=== PATIENT | male | born 1990 | race Hispanic/Latino ===

== ENCOUNTER 2020-10-02 00:34 | Emergency (ER) | payer SELFPAY ==
[2020-10-02] MEDS ORDERED: LORazepam 2 MG/ML VIAL ONE ×2 (00:50→08:04)
[2020-10-02 00:55] LABS: Basophils % 0.9 % (0-1.3); Hematocrit 45.4 % (39.6-49.0); Lymphocytes % 25.6 % (15.3-44.8); RBC Red Blood Cell Count 5.11 M/uL (4.33-5.43)
[2020-10-02] MEDS ORDERED: NA CHLORIDE 0.9% 1,000 ML ONE (00:56)
[2020-10-02] MEDS ORDERED: DIPHENHYDRAMINE 50 MG/ML VIAL ONE (00:59)
[2020-10-02 01:01] LABS: Protime INR 1.1
[2020-10-02 01:24] LABS: ALT/SGPT 17 U/L (12-78); AST/SGOT 19 U/L (15-37); Albumin 4.9 g/dL (3.4-5.0); Alkaline Phosphatase 82 U/L (45-117); BUN Blood Urea Nitrogen 23 mg/dL (7-18); Bicarbonate 17 mmol/L (21-32); Bilirubin Direct 0.2 mg/dL (0-0.2); Glucose Level 101 mg/dL (74-106); Potassium 3.7 mmol/L (3.5-5.1); Protein, Total 8.9 g/dL (6.4-8.2); Sodium Level 139 mmol/L (136-145)
[2020-10-02 04:30] LABS: Barbiturates NEGATIVE (NEGATIVE); Benzodiazepines NEGATIVE (NEGATIVE); Cocaine NEGATIVE (NEGATIVE); METHAMPHETAM POSITIVE (NEGATIVE); Methadone NEGATIVE (NEGATIVE); Opiates NEGATIVE (NEGATIVE); Phencyclidine NEGATIVE (NEGATIVE); THC Cannibis POSITIVE (NEGATIVE)
[2020-10-02 04:31] LABS: Urine Blood NEGATIVE (NEG); Urine Glucose NEGATIVE (NEG); Urine Protein 1+ (NEG); Urine Specific Gravity >1.030 (1.005-1.030)
--- NOTE | 2020-10-02 11:41 | EDPHYS ---
Physician Documentation [facility] Name: Arun Schuler Age: 29 yrs Sex: Male : 1990 Arrival Date: 10/02/2020 Time: 00:35 Bed 16 Private MD: ED Physician Cody Medina HPI: 10/02 00:54 This 29 yrs old Male presents to ER via EMS with complaints of Agressive mh7 Behavior. 00:54 The patient presents to the emergency department with Aggressive Behavior. Onset: The mh7 symptoms/episode began/occurred today. 01:06 Past psychiatric history: Prior diagnosis: bipolar disorder, schizophrenia, Psychiatric mh7 medications include: none, Primary psychiatric physician: the patient's psychiatric physician is not known, it is unknown whether or not the patient has had a prior suicide gesture, it is unknown whether or not the patient has a previous inpatient psychiatric history, the patient's last psychiatric treatment was unknown. Associated signs and symptoms: Pertinent positives; hallucinations. Severity of symptoms: At their worst the symptoms were moderate today, in the emergency department the symptoms are unchanged. Patient yelling and screaming at scene. Patient was recently released from halfway without medication for hi schizophrenia, bipolar disorder. patient talking to himself in ED while on stretcher.. Historical: - Allergies: 00:45 No Known Allergies; fc - Home Meds: 00:45 None [Active]; fc - PMHx: 00:45 Bipolar disorder; Schizophrenia; Depression; fc - Immunization history:: Last tetanus immunization: up to date. - Social history:: Smoking status: unknown. ROS: 01:06 Constitutional: Negative for fever, chills, and weight loss, Eyes: Negative for injury, mh7 pain, redness, and discharge, ENT: Negative for injury, pain, and discharge, Neck: Negative for injury, pain, and swelling, Cardiovascular: Negative for chest pain, palpitations, and edema, Respiratory: Negative for shortness of breath, cough, wheezing, and pleuritic chest pain, Abdomen/GI: Negative for abdominal pain, nausea, vomiting, diarrhea, and constipation, Back: Negative for injury and pain, : Negative for injury, bleeding, discharge, and swelling, MS/Extremity: Negative for injury and deformity, Skin: Negative for injury, rash, and discoloration, Neuro: Negative for headache, weakness, numbness, tingling, and seizure, Allergy/Immunology: Negative for hives, rash, and allergies, Endocrine: Negative for neck swelling, polydipsia, polyuria, polyphagia, and marked weight changes, Hematologic/Lymphatic: Negative for swollen nodes, abnormal bleeding, and unusual bruising. Exam: 01:06 Head/Face: Normocephalic, atraumatic. Neck: Trachea midline, no thyromegaly or masses mh7 palpated, and no cervical lymphadenopathy. Supple, full range of motion without nuchal rigidity, or vertebral point tenderness. No Meningismus. Chest/axilla: Normal chest wall appearance and motion. Nontender with no deformity. No lesions are appreciated. 01:06 Respiratory: Lungs have equal breath sounds bilaterally, clear to auscultation and percussion. No rales, rhonchi or wheezes noted. No increased work of breathing, no retractions or nasal flaring. Abdomen/GI: Soft, non-tender, with normal bowel sounds. No distension or tympany. No guarding or rebound. No evidence of tenderness throughout. Back: No spinal tenderness. No costovertebral tenderness. Full range of motion. Skin: Warm, dry with normal turgor. Normal color with no rashes, no lesions, and no evidence of cellulitis. MS/ Extremity: Pulses equal, no cyanosis. Neurovascular intact. Full, normal range of motion. 01:06 Constitutional: The patient appears in no acute distress, alert, awake, agitated, anxious. 01:06 Cardiovascular: Rate: tachycardic, Rhythm: regular, Pulses: no pulse deficits are appreciated, Heart sounds: normal, normal S1and S2, Edema: is not appreciated, JVD: is not appreciated. 02:22 Neuro: Awake and alert, GCS 15, oriented to person, place, time, and situation. mh7 Cranial nerves II-XII grossly intact. Motor strength 5/5 in all extremities. Sensory grossly intact. Cerebellar exam normal. Normal gait. 02:22 Psych: Behavior/mood is anxious, angry, Affect is animated, Oriented to person, place, time, Patient has no thoughts/intents to harm self or others. Judgement / Insight is normal. Memory is normal. Delusions/hallucinations are present and described as Talking to himself. Vital Signs: 00:27 BP 109 / 89; Pulse 144; Resp 24; Temp 98.6(TE); Pulse Ox 99% on R/A; Weight 83.91 kg fc (R); Height 5 ft. 11 in. (180.34 cm) (R); Pain 2/10; 02:00 BP 110 / 75; Pulse 93; Resp 16; Pulse Ox 99% ; rr5 05:00 BP 115 / 80; Pulse 90; Resp 17; Pulse Ox 99% ; rr5 06:00 BP 113 / 70; Pulse 85; Resp 16; Pulse Ox 99% ; rr5 11:00 BP 111 / 75; Pulse 83; Resp 15; Pulse Ox 100% ; jl7 00:27 Body Mass Index 25.80 (83.91 kg, 180.34 cm) fc MDM: 07:01 Differential diagnosis: acute psychotic break, depression, psychosis secondary to mh7 non-compliance. 11:38 Data reviewed: vital signs, nurses notes. Counseling: I had a detailed discussion with [facility] the patient and/or guardian regarding: the historical points, exam findings, and any diagnostic results supporting the discharge/admit diagnosis, the presence of at least one elevated blood pressure reading (>120/80) during this emergency department visit, the need for outpatient follow up. Response to treatment: the patient's symptoms have markedly improved after treatment. 11:[address] [facility] 10/02 00:43 Order name: Acetaminophen; Complete Time: 10/02 00:43 Order name: Basic Metabolic Panel; Complete Time: 10/02 00:43 Order name: CBC with Diff; Complete Time: 10/02 00:43 Order name: ETOH Level; Complete Time: 10/02 00:43 Order name: Hepatic Function; Complete Time: 10/02 00:43 Order name: PT-INR; Complete Time: 10/02 00:43 Order name: Ptt, Activated; Complete Time: 10/02 00:43 Order name: Salicylate; Complete Time: 10/02 00:43 Order name: Urine Drug Screen; Complete Time: 04:33 [facility] 10/02 01:26 Order name: CPK; Complete Time: 02:36 7 10/02 04:06 Order name: Urine Dipstick--Ancillary (enter results); Complete Time: 04:33 [facility] 10/02 09:28 Order name: SARS-COV-2 RT PCR; Complete Time: 11:22 [facility] 10/02 00:43 Order name: EKG; Complete Time: 00:44 5 10/02 00:43 Order name: EKG - Nurse/Tech; Complete Time: 00:51 rr5 10/02 00:43 Order name: IV Saline Lock; Complete Time: 00:51 rr5 10/02 00:43 Order name: Labs collected and sent; Complete Time: 00:51 rr5 10/02 00:43 Order name: Urine Dipstick-Ancillary (obtain specimen); Complete Time: 04:11 [facility] 10/02 08:32 Order name: Diet Finger Food; Complete Time: 08:33 [facility] Administered Medications: 00:35 Drug: NS 0.9% 1000 ml Route: IV; Rate: 1 bolus; Site: left forearm; rr5 01:20 Follow up: Response: No adverse reaction; IV Status: Completed infusion; IV Intake: rr5 1000ml 00:35 Drug: Ativan 1 mg Route: IVP; Site: left forearm; rr5 01:05 Follow up: Response: No adverse reaction; No change in condition rr5 01:05 Drug: Ativan 1 mg Route: IVP; Site: left forearm; rr5 02:05 Follow up: Response: No adverse reaction rr5 01:08 Drug: Benadryl 50 mg Route: IVP; Site: left forearm; rr5 02:10 Follow up: Response: No adverse reaction rr5 08:02 Drug: Ativan 1 mg Route: IVP; Site: left forearm; jl7 09:00 Follow up: Response: No adverse reaction jl7 12:13 Drug: Ativan 1 mg Route: IVP; Site: left forearm; jl7 13:00 Follow up: Response: No adverse reaction jl7 Disposition: 10/02/20 11:40 Transfer ordered to [facility]. Diagnosis is Homicidal ideations. - Reason for transfer: Higher level of care. - Accepting physician is Dr. Viveros [facility]. - Condition is Stable. - Problem is new. - Symptoms are unchanged. Signatures: Dispatcher [employer] [facility] Natasha Biswas RN RN fc Sheyla Schaeffer RN RN jl7 Daina Arcos MD MD ma2 Claudia Bullard Raymond, RN RN rr5 Cody Medina MD MD mh7 Corrections: (The following items were deleted from the chart) 08:28 08:12 CORONAVIRUS+Z ordered. EDUT EDMS 11:57 11:40 10/02/2020 11:40 Transfer ordered to Psych Facility. Diagnosis is Homicidal eb ideations. Reason for transfer: Higher level of care. Accepting physician is Bing. Condition is Stable. Problem is new. Symptoms are unchanged. ma2 13:24 11:57 10/02/2020 11:40 Transfer ordered to Psych Facility. Diagnosis is Homicidal jl7 ideations. Reason for transfer: Higher level of care. Accepting physician is Dr. Viveros [facility]. Condition is Stable. Problem is new. Symptoms are unchanged. eb
--- NOTE | 2020-10-02 11:41 | ER ---
Nurse's Notes [facility] Name: Arun Schuler Age: 29 yrs Sex: Male : 1990 Arrival Date: 10/02/2020 Time: 00:35 Bed 16 Private MD: Diagnosis: Homicidal ideations Presentation: 10/02 00:27 Chief complaint: EMS states: that they were toned for shortness of breath but upon fc their arrival pt was yelling and screaming. He did denies being suicidal and homicidal. Pt has just recently (5 days ago) gotten out of longterm where he was being medicated for Schizo and Bipolar, they sent him out with no medications. Coronavirus screen: Client denies travel out of the [place] in the last 14 days. Ebola Screen: Patient negative for fever greater than or equal to 101.5 degrees Fahrenheit, and additional compatible Ebola Virus Disease symptoms Patient denies exposure to infectious person. Patient denies travel to an Ebola-affected area in the 21 days before illness onset. Initial Sepsis Screen: Does the patient meet any 2 criteria? RR > 20 per min. HR > 90 bpm. Yes Does the patient have a suspected source of infection? No. Patient's initial sepsis screen is negative. Risk Assessment: Do you want to hurt yourself or someone else? Patient reports no desire to harm self or others. Onset of symptoms was October 02, 2020. Transition of care: patient was not received from another setting of care. 00:27 Method Of Arrival: EMS: [facility] 00:27 Acuity: ANGELICA 3 Historical: - Allergies: 00:45 No Known Allergies; fc - Home Meds: 00:45 None [Active]; fc - PMHx: 00:45 Bipolar disorder; Schizophrenia; Depression; fc - Immunization history:: Last tetanus immunization: up to date. - Social history:: Smoking status: unknown. Screenin:27 Abuse screen: Denies threats or abuse. Nutritional screening: No deficits noted. Tuberculosis screening: No symptoms or risk factors identified. Fall Risk None identified. Assessment: 01:00 General: Appears in no apparent distress. Behavior is agitated, anxious. rr5 01:00 Pain: Unable to use pain scale. Patient appears agitated. Neuro: Level of Consciousness rr5 is awake. Cardiovascular: Capillary refill < 3 seconds Patient's skin is warm and dry. Respiratory: Airway is patent Respiratory effort is even, unlabored, Respiratory pattern is regular, symmetrical. GI: No signs and/or symptoms were reported involving the gastrointestinal system. : No signs and/or symptoms were reported regarding the genitourinary system. EENT: No signs and/or symptoms were reported regarding the EENT system. Derm: Skin is intact, Skin temperature is warm. Musculoskeletal: Capillary refill < 3 seconds. 01:00 Reassessment: patient repeatedly shouts "i saw the girl..... I saw the horse bro....." rr5 ED provider aware with order made and carried out. 02:15 Reassessment: Patient appears in no apparent distress at this time. Patient is alert, rr5 oriented x 3, equal unlabored respirations, skin warm/dry/pink. able to answer question not aggressive, calm, cooperative. 03:19 Reassessment: valuables surrendered to security department. rr5 04:00 Reassessment: Patient appears in no apparent distress at this time. resting eyes closed rr5 breathing spontaneously at room air. 05:13 Reassessment: Patient appears in no apparent distress at this time. for [facility] rr5 referral once fully awake. 06:23 Reassessment: Patient appears in no apparent distress at this time. Patient is alert, rr5 oriented x 3, equal unlabored respirations, skin warm/dry/pink. able to respond to verbal stimuli. for [facility] referral. 06:49 Reassessment: Patient appears in no apparent distress at this time. Patient is alert, rr5 oriented x 3, equal unlabored respirations, skin warm/dry/pink. asked the patient for his phone number [phone] and asked if any thoughts as of this moment if he wants to hurt himself or other people? he stated " sometimes I marianne want to hurt myself not other people. ED provider aware. 07:00 Reassessment: Patient appears in no apparent distress at this time. Patient is alert, rr5 oriented x 3, equal unlabored respirations, skin warm/dry/pink. adrienne mancera is on Ipad assessing the patient. 07:50 Reassessment: Pt off the Ipad with Adrienne Mancera, reports "I'm starting to feel real jl7 anxious." ERP notified, see [facility] for orders. 09:00 Reassessment: Patient appears in no apparent distress at this time. No changes from jl7 previously documented assessment. Patient and/or family updated on plan of care and expected duration. Pain level reassessed. Patient is alert, oriented x 3, equal unlabored respirations, skin warm/dry/pink. Patient states feeling better. 10:00 Reassessment: Patient appears in no apparent distress at this time. No changes from jl7 previously documented assessment. Patient and/or family updated on plan of care and expected duration. Pain level reassessed. Patient is alert, oriented x 3, equal unlabored respirations, skin warm/dry/pink. 11:00 Reassessment: Patient appears in no apparent distress at this time. No changes from jl7 previously documented assessment. Patient and/or family updated on plan of care and expected duration. Pain level reassessed. Patient is alert, oriented x 3, equal unlabored respirations, skin warm/dry/pink. 12:10 Reassessment: Patient appears in no apparent distress at this time. Patient and/or jl7 family updated on plan of care and expected duration. Pain level reassessed. Patient is alert, oriented x 3, equal unlabored respirations, skin warm/dry/pink. Pt reports increased anxiety, ERD notified, see [facility] for orders. 13:00 Reassessment: Patient appears in no apparent distress at this time. Patient and/or jl7 family updated on plan of care and expected duration. Pain level reassessed. Patient is alert, oriented x 3, equal unlabored respirations, skin warm/dry/pink. Patient states feeling better. 13:22 Reassessment: [facility] at bedside to transport pt to receiving facility. jl7 21:42 Reassessment: pt mother called, reports her son was transferred to [facility] requesting information on his status. pt informed of contact information for [facility] as this patient had left this facility already. Psych: 07:50 Subjective: Patient's mood is hopeless, Delusions are denied, Hallucinations are jl7 auditory, Having thoughts of states "When my anxiety gets real bad, I start thinking of wanting to hurt other people that have made me mad." Denies SI, denies HI at this time. Objective: Patient is cooperative, Speech is normal, Affect is flat. Interventions: interventions completed on core setter. Suicide Risk Assessment: Sad Person Scale: Sex of patient: Male: Score 1 point. Age of patient: Score 1 point if patient 15-34. Depression: Score 1 point if signs of depression are present. Previous Attempt: Score 0 point if patient has not previously attempted suicide. Substance Abuse: Score 1 point if patient abuses alcohol or drugs. Rational Thinking: Score 0 point if patient has rational thinking. Social Support: Score 1 point if social support is lacking and/or unavailable. Organized Plan: Score 0 if patient did not have an organized plan in place. Relationship: Score 1 point if patient is , , , or for a single male Chronic Sickness:. Safety Checks: Personal items have been removed. Door is open. No visitors are present at this time. Patient uses of beer. 13:24 Commitment: Patient will be a voluntary commitment. 7 Vital Signs: 00:27 BP 109 / 89; Pulse 144; Resp 24; Temp 98.6(TE); Pulse Ox 99% on R/A; Weight 83.91 kg fc (R); Height 5 ft. 11 in. (180.34 cm) (R); Pain 2/10; 02:00 BP 110 / 75; Pulse 93; Resp 16; Pulse Ox 99% ; rr5 05:00 BP 115 / 80; Pulse 90; Resp 17; Pulse Ox 99% ; rr5 06:00 BP 113 / 70; Pulse 85; Resp 16; Pulse Ox 99% ; rr5 11:00 BP 111 / 75; Pulse 83; Resp 15; Pulse Ox 100% ; jl7 00:27 Body Mass Index 25.80 (83.91 kg, 180.34 cm) ED Course: 00:30 Inserted saline lock: 20 gauge in left forearm, using aseptic technique. Blood rr5 collected. 00:35 Patient arrived in ED. fc 00:38 Cody Medina MD is Attending Physician. 7 00:39 Dheeraj Acosta RN is Primary Nurse. rr5 00:40 EKG done, by ED staff, reviewed by Cody Medina MD. rr5 00:40 Patient has correct armband on for positive identification. Bed in low position. Call rr5 light in reach. Side rails up X2. sitter at bedside. 00:44 Triage completed. fc 01:00 No provider procedures requiring assistance completed. rr5 01:05 Arm band placed on Patient sitter at bedside. rr5 04:00 Urine collected: clean catch specimen, clear. rr5 06:33 called the [facility] crisis line at [phone]/ per Laurence she will page out the eb screener. 06:50 Dominick from [facility] called / faxed over patient clinicals and connected patient eb Dominick over Ipad for screening. 08:06 attempted to initiate a transfer with Tukimberlyclyde from [facility]/ Per susanna Norman a COVID swab must be done and resulted before i can initiate the transfer/ nurse notified. 08:14 COVID swab sent to lab. jl7 08:17 faxed patient clinical's to the following facilities in the attempt to transfer/ [facility], [facility], [facility], [facility], [facility], [facility], [facility], [facility], [facility], [facility], [facility], [facility], [facility]. and [facility] 08:52 Brijesh from [facility] called to decline patient at this time they are at capacity. eb 09:15 Diet: Patient given a regular meal tray. [facility] 09:24 Ute Rn from [facility] called to deny patient in transfer/ their high eb acuity unit is at capacity and they do not have a bed for him at this time. 09:36 initiated a transfer with Ester from [facility]/ faxed over eb exclusionary along with patient chart to [phone]. 10:23 Destini from [facility] called to deny the patient in transfer they are at eb capacity. 11:10 faxed over COVID results to Nicki from [facility]/ She will call back eb to do nurse to nurse once she has received it. 11:15 connected Nicki Rn from [facility] with Sheyla Do for nurse to nurse for eb patient transfer. 11:18 paged the specialty finishing utility person psychiatrist for [facility] at [phone]. eb 11:21 connected the psychiatrist specialty finishing utility person for [facility] with Dr. Arcos for patient transfer eb consultation. 11:31 Ester clements [facility] called to decline the patient in transfer/ the patient did not eb meet the guidelines for transfer. 11:[address] Viveros the psychiatrist specialty finishing utility person for [facility] with Dr. Arcos for eb patient transfer consultation. 11:47 administrative approval given by Al Loera/ patient has been accepted to [facility]/ has accepted the patient in transfer/ report already given. 12:10 Diet: Patient given a regular meal tray. dh3 13:23 IV discontinued, intact, bleeding controlled, No redness/swelling at site. Pressure jl7 dressing applied. Administered Medications: 00:35 Drug: NS 0.9% 1000 ml Route: IV; Rate: 1 bolus; Site: left forearm; rr5 01:20 Follow up: Response: No adverse reaction; IV Status: Completed infusion; IV Intake: rr5 1000ml 00:35 Drug: Ativan 1 mg Route: IVP; Site: left forearm; rr5 01:05 Follow up: Response: No adverse reaction; No change in condition rr5 01:05 Drug: Ativan 1 mg Route: IVP; Site: left forearm; rr5 02:05 Follow up: Response: No adverse reaction rr5 01:08 Drug: Benadryl 50 mg Route: IVP; Site: left forearm; rr5 02:10 Follow up: Response: No adverse reaction rr5 08:02 Drug: Ativan 1 mg Route: IVP; Site: left forearm; jl7 09:00 Follow up: Response: No adverse reaction jl7 12:13 Drug: Ativan 1 mg Route: IVP; Site: left forearm; jl7 13:00 Follow up: Response: No adverse reaction jl7 Intake: 01:20 IV: 1000ml; Total: 1000ml. rr5 Outcome: 11:40 ER care complete, transfer ordered by MD. ng 13:23 Transferred by ground EMS to other acute care facility: [facility]. Transfer form jl7 completed. 13:23 Condition: stable 13:23 Discharge instructions given to patient, Instructed on the need for transfer, Demonstrated understanding of instructions. 13:24 Patient left the ED. jl7 Signatures: Jose Russo RN RN Natasha Biswas RN RN Sheyla Schaeffer RN RN jl7 Aleena Cadena 3 Daina Arcos MD MD ma2 Claudia Bullard Raymond, RN RN rr5 Cody Medina MD MD mh7
[2020-10-02 13:36] VITALS: BP 111/75; O2SAT 100
== END 2020-10-02 13:24 ==
LOC: ER 00:34
DX: R45.850 Homicidal ideations (principal); F20.9 Schizophrenia, unspecified; Z20.828 Contact with and (suspected) exposure to other viral communicable diseases
CPT/HCPCS: 36415; 80048; 80076; 80307; 80320; 80329; 81003; 82550; 85025; 85610; 85730; 93005; 96361; 96374; 96375; 99285; J1200; J7030; U0003

== ENCOUNTER 2022-09-18 03:40 | Emergency (ER) | payer SELFPAY ==
--- OUTSIDE RECORDS SUMMARY | 2022-09-18 03:50 | XMS REPORT | Continuity of Care Document ---
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 PRELIMINARY 2021-08-10 19:01:33 [facility] INTERPRETATION ECG 12-LEAD 2021-08-10 19:00:58 [facility] HC COMPLETE BLD COUNT 2021-08-10 18:23:00 [facility] W/AUTO DIFF CREATINE KINASE, TOTAL 2021-08-10 18:21:00 [facility] ([facility]) COMPREHENSIVE METABOLIC 2021-08-10 18:21:00 [facility] PANEL T4, FREE 2021-08-10 18:21:00 [facility] THYROID STIMULATING 2021-08-10 18:21:00 [facility] HORMONE ALCOHOL LEVEL, BLOOD 2021-08-10 18:21:00 [facility] ACETAMINOPHEN LEVEL 2021-08-10 18:21:00 [facility] SALICYLATE LEVEL 2021-08-10 18:21:00 [facility] ESTIMATED GFR 2021-08-10 18:21:00 [facility] RESPIRATORY PATHOGEN 2021-08-10 18:06:00 [facility] PANEL WITH COVID-19 RT-PCR URINE CULTURE 2021-08-10 18:00:00 Eloisa Monsivais [facility] spital URINALYSIS SCREEN AND 2021-08-10 18:00:00 Eloisa michel [facility] MICROSCOPY, WITH REFLEX TO CULTURE URINE DRUGS OF ABUSE 2021-08-10 18:00:00 Eloisa michel [facility] SCREEN CBC/DIFF 2021-08-06 21:32:00 Shaylee Lux BASIC METABOLIC PANEL 2021-08-06 21:32:00 Shaylee [facility] ACETAMINOPHEN 2021-08-06 21:32:00 Shaylee Lux LIVER PROFILE 2021-08-06 21:32:00 Shaylee Lux CBC 2021-08-06 21:32:00 Shaylee Lux 12 LEAD EKG 2021-08-06 21:27:52 Shaylee Lux CBC WITH 2021-08-03 15:56:00 Sherine Serrato DIFFERENTIAL/PLATELET COMPREHENSIVE METABOLIC 2021-08-03 15:56:00 Sherine Serrato [facility] PANEL(14) LIPID PANEL 2021-08-03 15:56:00 Sherine Serrato h TSH 2021-08-03 15:56:00 Sherine Serrato HEMOGLOBIN A1C 2021-08-03 15:56:00 Sherine Serrato VALPROIC ACID 2021-08-03 15:56:00 Sherine Serrato (DEPAKOTE)(R),S Appendectomy [facility] Plan of Care Planned Activity Planned Date Details Comments Source Future Scheduled 2022-09-12 HEPATITIS B VACCINES Met [facility] Test 08:10:54 (1 of 3 - 3-dose series) [code = HEPATITIS B VACCINES (1 of 3 - 3-dose series)] Future Scheduled 2022-09-12 COVID-19 VACCINE (#1) [facility] Test 08:10:54 [code = COVID-19 VACCINE (#1)] Future Scheduled 2022-09-12 Pneumococcal Vaccine: [facility] Test 08:10:54 Pediatrics (0 to 5 Years) and At-Risk Patients (6 to 64 Years) (1 - PCV) [code = Pneumococcal Vaccine: Pediatrics (0 to 5 Years) and At-Risk Patients (6 to 64 Years) (1 - PCV)] Future Scheduled 2022-09-12 Hepatitis C screening [facility] Test 08:10:54 (procedure) [code = 395697223] Future Scheduled 2022-09-12 INFLUENZA VACCINE Method [facility] Test 08:10:54 [code = INFLUENZA VACCINE] Future Scheduled 2022-07-06 HEPATITIS B VACCINES Met [facility] Test 13:39:48 (1 of 3 - 3-dose series) [code = HEPATITIS B VACCINES (1 of 3 - 3-dose series)] Future Scheduled 2022-07-06 COVID-19 VACCINE (#1) [facility] Test 13:39:48 [code = COVID-19 VACCINE (#1)] Future Scheduled 2022-07-06 Pneumococcal Vaccine: [facility] Test 13:39:48 Pediatrics (0 to 5 Years) and At-Risk Patients (6 to 64 Years) (1 - PCV) [code = Pneumococcal Vaccine: Pediatrics (0 to 5 Years) and At-Risk Patients (6 to 64 Years) (1 - PCV)] Future Scheduled 2022-07-06 Hepatitis C screening [facility] Test 13:39:48 (procedure) [code = [id number]] Future Scheduled 2022-07-06 INFLUENZA VACCINE Method [facility] Test 13:39:48 [code = INFLUENZA VACCINE] Future Scheduled 1996 Imm Pneumococcal 0-64 [facility] Test 00:00:00 (1 - PCV) [code = Imm Pneumococcal 0-64 (1 - PCV)] Future Scheduled 1996 Imm Pneumococcal 0-64 [facility] Test 00:00:00 (1 - PCV) [code = Imm Pneumococcal 0-64 (1 - PCV)] Future Scheduled 1991-05-26 COVID-19 Vaccine (#1) [facility] Test 00:00:00 [code = COVID-19 Vaccine (#1)] Future Scheduled 1991-05-26 COVID-19 Vaccine (#1) [facility] Test 00:00:00 [code = COVID-19 Vaccine (#1)] Future Scheduled 1990 Fluoride Varnish [code [facility] Test 00:00:00 = Fluoride Varnish] Encounters Start End Encounter Admission Attending Care Care Encounter Source Date/Time Date/Time Type Type Clinicians Facility Department ID 2022-08-03 Outpatient [facility] [id number] [place] 10:05:36 [id number] [facility] 2022-07-06 Outpatient [facility] [id number] [place] 16:18:48 [id number] [facility] 2022-07-05 Outpatient [facility] [id number] [place] 09:06:20 [id number] [facility] 2022-05-09 Outpatient [facility] [id number] [place] 15:39:29 [id number] [facility] 2021-11-14 Inpatient EM EDDOC, HCABM FERS [id number] [facility] 20:01:00 GENERIC 48 [facility] 2021-09-27 [facility] [id number] [facility] 17:56:27 CAM 2021-08-19 Inpatient [facility] [id number] [facility] 09:48:00 39 2021-07-26 Inpatient [facility] [id number] [facility] 23:54:00 08 2021-06-05 Inpatient [facility] [id number] [facility] 14:59:00 55 2021-01-17 Inpatient [facility] [id number] [facility] 09:28:00 27 2020-12-06 Inpatient HCABM AMARIS [id number] [facility] 22:48:00 40 [facility] 2020-09-20 Inpatient HCAB[facility] AMARIS [id number] [facility] 09:09:00 30 [facility] 2020-07-05 Inpatient HCAB[facility] AMARIS [id number] [facility] 05:19:00 12 [facility] 2020-06-30 Inpatient [facility] AM[facility]IS [id number] [facility] 12:44:00 63 [facility] 2020-05-20 Inpatient HCAB[facility] AMARIS [id number] [facility] 19:30:00 13 [facility] 2022-08-03 2022-08-05 Emergency CHARANJIT Barksdale ERPSY [id number] [facility] 01:31:00 14:06:00 Karley 61 [facility] 2022-07-05 2022-07-18 Inpatient [facility] [id number] [place] 08:43:00 23:00:00 [facility] 2022-07-05 2022-07-18 Outpatient RHONDA, [facility] [id number] [facility] 08:43:00 10:50:00 [facility] 2022-07-10 2022-07-10 Emergency Renate Saunders [facility] [id number] [place] 14:52:00 17:05:00 [facility] 2022-07-10 2022-07-10 Emergency Renate Saunders [facility] [id number] [place] 14:52:00 17:05:00 [facility] 2022-07-10 2022-07-10 Emergency [facility] [id number] [place] 16:10:24 16:22:12 [facility] 2022-07-02 2022-07-02 Outpatient EMY DUMAS [facility] [id number] [place] 17:44:56 23:59:00 [facility] 2022-05-18 2022-05-19 Emergency Alfredo Palmer 1.2.840.1 [id number] [facility] 23:02:00 11:10:[address] 3.430.2.7 Hospit a .3.217457 l .8 2022-05-18 2022-05-19 Emergency Spencer Alfredo 1.2.840.1 [id number] [facility] 23:02:00 11:10:[address] 3.430.2.7 Hospit a .3.375094 l .8 2022-05-08 2022-05-12 Emergency CHARANJIT Lam ERPSY [id number] [facility] 09:00:00 23:50:00 Lemuel 17 [facility] 2022-03-07 2022-03-07 [id number] 01:53:00 01:53:00 [facility] 2022-03-03 2022-03-05 Inpatient EM CHARANJIT Perez TELE [id number] [facility] 10:14:00 11:40:00 Alexsandra 49 [facility] 2022-03-04 2022-03-04 Outpatient KAEL Perez LABO [id number] [facility] 06:16:00 06:16:00 Alexsandra 10 [facility] 2022-02-22 2022-02-24 Emergency EM Johnnie [facility] ERPSY [id number] [facility] 09:52:00 09:35:00 Tra 46 [facility] 2021-12-09 2021-12-09 Emergency Svach, 1.2.840.1 [id number] [facility] 15:09:00 18:00:00 Eloisa R [address].1.[address] 3.430.2.7 Hospit a .3.415525 l .8 2021-12-09 2021-12-09 Emergency Svach, 1.2.840.1 [id number] [facility] 15:09:00 18:00:00 Eloisa R [address]05.1.[address] 3.430.2.7 Hospit a .3.833444 l .8 2021-11-20 2021-11-20 Hospital Svach, 1.2.840.1 [id number] [facility] 15:37:32 23:59:00 Encounter Eloisa R [address]649.1.[address] 3.430.2.7 Hospit a .3.253281 l .8 2021-11-20 2021-11-20 Hospital Svach, 1.2.840.1 [id number] [facility] 15:37:32 23:59:00 Encounter Eloisa R [address].1.[address] 3.430.2.7 Hospit a .3.809113 l .8 2021-11-20 2021-11-20 Emergency Svach, 1.2.840.1 [id number] [facility] 15:30:00 16:05:00 Eloisa R [address].1.[address] 3.430.2.7 Hospit a .3.228321 l .8 2021-11-20 2021-11-20 Emergency Svach, 1.2.840.1 [id number] [id number] [facility] 15:30:00 16:05:00 Eloisa R [address].1.[address] 3.430.2.7 Hospit a .3.203408 l .8 2021-11-20 2021-11-20 Travel 1.2.840.1 1.2.261.403 7134 [id number] [facility] 00:00:00 00:00:[address] 3.430.2.7 0.2.7.3.698 Ho spita .3.912758 084.8 l .8 2021-11-20 2021-11-20 Travel 1.2.840.1 1.2.959.533 9011 [id number] [facility] 00:00:00 00:00:[address] 3.430.2.7 0.2.7.3.698 Ho spita .3.033037 084.8 l .8 2021-11-14 2021-11-14 Emergency Leslie, 1.2.840.1 [id number] [facility] 21:35:00 22:12:[address] 3.430.2.7 Hospit a .3.899535 l .8 2021-11-14 2021-11-14 Emergency Leslie, 1.2.840.1 [id number] [id number] [facility]i 21:35:00 22:12:[address] 3.430.2.7 Hospit a .3.832354 l .8 2021-11-14 2021-11-14 Travel 1.2.840.1 1.2.113.577 0036 [id number] Methodi 00:00:00 00:00:[address] 3.430.2.7 0.2.7.3.698 Ho spita .3.700847 084.8 l .8 2021-11-14 2021-11-14 Travel 1.2.840.1 1.2.158.511 8703 [id number] [facility] 00:00:00 00:00:[address] 3.430.2.7 0.2.7.3.698 Ho spita .3.604249 084.8 l .8 2021-11-02 2021-11-03 Emergency EM CHARANJIT Bro [id number] [facility] 23:58:00 10:54:00 Eusebio 53 [facility] 2021-09-30 2021-09-30 Emergency EM CHARANJIT Reyes FERS [id number] [facility] 18:08:00 19:52:00 Araceli 91 [facility] 2021-09-27 2021-09-28 Inpatient [facility] [id number] [place] 01:00:00 23:00:00 [facility] 2021-09-24 2021-09-24 Outpatient JASVIR, [facility] [id number] [place] 19:23:17 23:59:00 [facility] 2021-08-19 2021-08-20 Inpatient EM NorthCHARANJIT [id number] [facility] 21:24:00 15:23:00 [facility] 60 [facility] 2021-08-20 2021-08-20 Outpatient CRISTOBAL Kat LABO [id number] [facility] 08:44:00 08:44:00 [facility] 07 [facility] 2021-08-19 2021-08-19 Emergency [facility] [id number] [facility] 09:48:00 09:48:00 39 2021-08-18 2021-08-19 Emergency Nazario [facility] [id number] Jaya 20:21:00 05:33:[facility] 2021-08-19 2021-08-19 Emergency NAZARIO [facility] [id number] [place] 00:32:29 00:32:29 KWAN [facility] DAHIANA 2021-08-10 2021-08-12 Emergency Latrice 1.2.840.1 [id number] [facility] 12:40:00 11:57:[address] Siri lam[address]85.1.[address] 3.430.2.7 Hospit a .3.395025 l .8 2021-08-12 2021-08-12 Travel 1.2.840.1 1.2.484.340 7096 [id number] [facility] 00:00:00 00:00:[address] 3.430.2.7 0.2.7.3.698 Ho spita .3.966007 084.8 l .8 2021-08-06 2021-08-07 [facility] [id number] [place] 22:02:00 06:08:00 Caterina salazar 2021-07-26 2021-07-26 Emergency [facility] [id number] [facility] 23:54:00 23:54:00 08 2021-06-05 2021-06-05 Emergency [facility] [id number] [facility] 14:59:00 14:59:00 55 2021-05-30 2021-05-30 Emergency [facility] [id number] Memoria 03:14:32 07:02:00 karla Cristina 00 l [facility] 2021-05-30 2021-05-30 Emergency [facility] [id number] Memoria 03:14:32 07:02:00 r Jonnie 00 l [facility] 2021-05-29 2021-05-30 Outpatient RUDOLPH Miranda MHSE [id number] 22:14:32 02:02:00 Bryce 00 2021-05-29 2021-05-30 Emergency E RUDOLPH MIRANDA MHSE [id number] MH 22:14:00 02:02:00 [facility] 2021-01-17 2021-01-17 [id number] 09:28:00 09:28:00 27 2020-12-06 2020-12-08 Emergency EM CRISTOBAL MontesBM ERPSY [id number] [facility] 22:48:00 14:25:00 Brian 40 [facility] 2020-12-07 2020-12-07 Outpatient CRISTOBAL MontesCL LABO [id number] [facility] 14:45:00 14:45:00 Brian 68 [facility] 2020-12-07 2020-12-07 Outpatient Simon HCACL LABO [id number] [facility] 14:45:00 14:45:00 Brian 68 [facility] 2020-07-06 2020-07-09 Inpatient E REINA, [facility]SE MED [id number] 22:00:00 17:09:[address] [facility] 2020-07-05 2020-07-06 Emergency E RONNIE SE MHSE [id number] 21:28:00 01:32:00 BRYCE [facility] 2019-11-13 2019-11-15 Inpatient HCAKW AMARIS [id number] [facility] 17:57:00 02:47:27 09 [facility] 2018-06-20 2018-06-20 Emergency [facility] MED [id number] [place] 08:56:13 08:56:13 Health 2017-05-19 2017-05-19 Outpatient [facility] [id number] [place] 00:00:00 00:00:00 Health Results Test Description Test Time Test Comments Results Result Comments Source ECG 12 lead 2022-09-15 05:17:13 Test Item Value Reference Range Interpretation Comme nts Ventricular rate (test code = 253) Atrial rate (test code = 255) AR interval (test code = 266) QRSD interval (test code = 260) QT interval (test code = 264) QTC interval (test code = 265) P axis 1 (test code = 267) QRS axis 1 (test code = 268) T wave axis (test code = 270) EKG impression (test code = 273) Normal sinus rhythm with sinus arrhythmia-Right superior axis deviation-Cannot rule out Anterior infarct , age undetermined-Abnormal ECG-In automated comparison with ECG of 10-AUG-2021 14:00,-Questionable change in QRS axis- [facility] [id number] 04:54:00 Test Item Value Reference Range Interpretation Comments UA COLOR (test code = YELLOW YELLOW COLU) UA APPEARANCE (test CLEAR CLEAR IS THE S AMPLE code = APPU) FROM ER OR L&D? Y IF THE ANSWER I S NO,PLEASE DOCUMENT TWO RN SIGNATURES HERE - Edwar DongLAB.GP 08/03/22 1130 UA BILIRUBIN DIPSTICK NEGATIVE mg/dL NEGATIVE (test code = BILU) UA SPECIFIC GRAVITY 1.025 1.001-1.035 (test code = SGU) UA PH DIPSTICK (test 6.0 5.0-8.0 code = TAMEKA) UA UROBILINIOGEN Normal mg/dL NEGATIVE DIPSTICK (test code = URO) UA NITRITE DIPSTICK NEGATIVE NEGATIVE (test code = EDUARDO) UA LEUKOCYTE ESTERASE NEGATIVE Geneva/uL NEGATIVE W REFLEX (test code = LEUUR) UA WBC (test code = 6-10 per HPF 0-5 A WBCU) UA RBC (test code = 0-2 #/HPF 0-5 RBCU) UA EPITHELIAL CELLS None seen per FEW (test code = EPIU) HPF UA BACTERIA (test FEW #/HPF NONE A code = BACU) UA GLUCOSE DIPSTICK NEGATIVE mg/dL NEGATIVE (test code = DGLUU) UA KETONE DIPSTICK TRACE mg/dL NEGATIVE A (test code = KETU) UA BLOOD DIPSTICK Negative mg/dL NEGATIVE (test code = MARGIE) UA PROTEIN DIPSTICK 10 (Trace) mg/dL NEGATIVE A (test code = PROU) UA MUCUS (test code = FEW #/LPF FEW MUCU) Urine Source? Clean CatchDRUGS OF ABUSE SCREEN [id number] 04:54:00 Test Item Value Reference Range Interpretation Comments URN COCAINE (test code = NEGATIVE See_Comment [A utomated message] COCAURN) The system [employer] generated this result transmitted ref erence range: <300 ng/ mL. The reference r sidra was not used to interpret this result as normal/abnor mal. URN CANNABINOIDS (test NEGATIVE See_Comment [Aut omated message] code = CANNABURN) The system which generated this result transmitted ref erence range: <50 ng/m L. The reference range was not used to int erpret this result as normal/abnormal . URN AMPHETAMINE (test POSITIVE See_Comment [Auto mated message] code = AMPHETURN) The system which generated this result transmitted ref erence range: <1000 ng /mL. The reference r sidra was not used to interpret this result as normal/abnor mal. URN BARBITURATE (test NEGATIVE See_Comment [Auto mated message] code = BARBITURN) The system which generated this result transmitted ref erence range: <200 ng/ mL. The reference r sidra was not used to interpret this result as normal/abnor mal. URN BENZODIAZEPINE (test NEGATIVE See_Comment [A utomated message] code = BENZOURN) The system which generated this result transmitted ref erence range: <200 ng/ mL. The reference r sidra was not used to interpret this result as normal/abnor mal. URN OPIATES (test code = NEGATIVE See_Comment [A utomated message] OPIATURN) The system [employer] generated this result transmitted ref erence range: <300 ng/ mL. The reference r sidra was not used to interpret this result as normal/abnor mal. URN PHENCYCLIDINE (PCP) NEGATIVE See_Comment [Au tomated message] (test code = PHENCURN) The s ystem which generated this result transmitted ref erence range: <25 ng/m L. The reference range was not used to int erpret this result as normal/abnormal . URN METHADONE (test code NEGATIVE See_Comment [A utomated message] = METHAURN) The system [employer] generated this result transmitted ref erence range: <300 ng/ mL. The reference r sidra was not used to interpret this result as normal/abnor mal. Urine Source? Clean CatchCOVID 19 Asymptomatic IH [id number] 03:48:00 Test Item Value Reference Range Interpretation Comments COVID 19 Asymptomatic IH AG (test NEGATIVE NEGATIVE code = COVNONPUIAG) BASIC METABOLIC [id number] 03:26:00 Test Item Value Reference Range Interpretation Comments SODIUM (test code = 140 mmol/L 136-145 N NA) POTASSIUM (test code 3.8 mmol/L 3.5-5.1 N = K) CHLORIDE (test code 104.0 mmol/L 98-107 N = CL) CARBON DIOXIDE (test 24.0 mmol/L 21-32 N code = CO2) ANION GAP (test code 15.8 10-20 N = GAP) GLUCOSE (test code = 110 mg/dL 74-106 H GLU) BLOOD UREA NITROGEN 19 mg/dL 7-18 H (test code = BUN) GLOMERULAR > 60 mL/min See_Comment Estimated GFR b y FILTRATION RATE using Modifi ed MDRD (test code = GFR) formula.Ch ronic kidney disease is defined as eith er kidney damageor GFR <60 mL/min/1.73 m2 for >3 months. [Automated mess age] The system [employer] generated this result transmitted ref erence range: >=60. Th e reference range was not used to int erpret this result as normal/abnormal . CREATININE (test 1.00 mg/dL 0.7-1.3 N code = CREAT) BUN/CREATININE RATIO 19.0 10-20 N (test code = BUN/CREA) CALCIUM (test code = 9.3 mg/dL 8.5-10.1 N CA) HEPATIC FUNCTION [id number] 03:26:00 Test Item Value Reference Range Interpretation Comments TOTAL PROTEIN (test 7.0 gram/dL 6.4-8.2 N code = PROT) ALBUMIN (test code = 4.5 g/dL 3.4-5.0 N ALB) GLOBULIN (test code = 2.5 gram/dL 2.7-4.2 L GLOB) ALBUMIN/GLOBULIN RATIO 1.8 0.75-1.50 H (test code = A/G) BILIRUBIN TOTAL (test 1.00 mg/dL 0.0-1.0 N code = BILT) BILIRUBIN DIRECT (test 0.30 mg/dL 0.0-0.20 H code = BILD) SGOT/AST (test code = 34 IUnit/L 15-37 N AST) SGPT/ALT (test code = 23 IUnit/L 12-78 N ALT) ALKALINE PHOSPHATASE 83 IUnit/L 45-117 N Note change in TOTAL (test code = reference range due ALKP) to change in reagent. [id number] 03:26:00 Test Item Value Reference Range Interpretation Comments ACETAMINOPHEN (test code < 0.2 mg/dL 1.0-3.0 L CAU TION: TO = ACET) CONVERT FROM MG /DL TO MCG/ML MULTI PLY RESULT [id number] 03:26:00 Test Item Value Reference Range Interpretation Comments SALICYLATE (test code = BIGG) < 3.0 mg/dL 2.8-20.0 N [id number] 03:26:00 Test Item Value Reference Range Interpretation Comments ALCOHOL (test code = 4 mg/dL 0.0-3.0 H ------- INTERPRET ALC) JOSEFINA DATA NOTE: POSITIVE SCREEN ING RESULTS SHOULD BE CONSI DERED PRESUMPTIVE.WHE N COLLECTED FOR MEDICAL PUR POSES ONLY. SPECIMEN WILL N OTBE COLLECTED BY NELIA OF CUSTODY.IF A CO NFIRMATION OF POSITIVE RES ULTS IS DESIRED, ACONFI RMATION TEST MUST BE RE QUESTED BY THE PHYSICIAN A T ANADDITIONAL CH ARGE TO THE PATIENT. CBC W/O [id number] 02:48:00 Test Item Value Reference Range Interpretation Comments WHITE BLOOD CELL (test code = 11.7 K/mm3 4.5-12.5 N WBC) RED BLOOD CELL (test code = 4.92 mill/mm3 4.0-5.8 N RBC) HEMOGLOBIN (test code = HGB) 14.7 gram/dL 13.0-17.5 N HEMATOCRIT (test code = HCT) 42.8 % 42.0-52.0 N MEAN CELL VOLUME (test code = 87.0 fL 80-98 N MCV) MEAN CELL HGB (test code = MCH) 29.9 picogram 27.0-33.0 N MEAN CELL HGB CONCETRATION 34.3 gram/dL 33.0-36.0 N (test code = MCHC) RED CELL DISTRIBUTION WIDTH 11.9 % 11.6-16.2 N (test code = RDW) PLATELET COUNT (test code = 223 K/mm3 150-450 N PLT) MEAN PLATELET VOLUME (test code 11.7 fL 6.7-11.0 H = MPV) Urine [id number] 14:51:00 Test Item Value Reference Range Interpretation Comments Urine culture Mixed mechelle Specimen isolate (test <=10-3 col/cc InformationSp ecimen code = 68647-2) Source: [id number] 14:51:00 Test Item Value Reference Range Interpretation Comments Urine culture Mixed mechelle Specimen isolate (test <=10-3 col/cc InformationSp ecimen code = 99387-7) Source: [facility]Spec[facility] [Presence] in Respiratory specimen by NIKKI with probe [id number] 00:38:47 Test Item Value Reference Range Interpretation Comments SARS-CoV-2 (COVID-19) RNA Not detected [Presence] in Respiratory specimen by NIKKI with probe detection (test code = 08093-5) Whether patient is employed in a Unknown healthcare setting (test code = 95276-6) Whether the patient has symptoms Unknown related to condition of interest (test code = 43671-2) Whether the patient was Unknown hospitalized for condition of interest (test code = 54258-4) Whether the patient was admitted Unknown to intensive care unit (ICU) for condition of interest (test code = 88516-5) Whether patient resides in a Unknown congregate care setting (test code = 78848-0) status (test code = Unknown 55305-7) Date and time of symptom onset Unknown (test code = 98686-3) [facility] [id number] 07:40:00 Test Item Value Reference Range Interpretation Comments UA COLOR (test code = YELLOW YELLOW COLU) UA APPEARANCE (test CLEAR CLEAR IS THE S AMPLE code = APPU) FROM ER OR L&D? Y IF THE ANSWER I S NO,PLEASE DOCUMENT TWO RN SIGNATURES HERE - by [email or web address].BETH 05/09/22 0717 UA GLUCOSE DIPSTICK NEGATIVE mg/dL NEGATIVE (test code = DGLUU) UA BILIRUBIN DIPSTICK NEGATIVE mg/dL NEGATIVE (test code = BILU) UA KETONE DIPSTICK 10 (1+) mg/dL NEGATIVE A (test code = KETU) UA SPECIFIC GRAVITY 1.027 1.001-1.035 (test code = SGU) UA BLOOD DIPSTICK Negative mg/dL NEGATIVE (test code = MARGIE) UA PH DIPSTICK (test 6.0 5.0-8.0 code = TAMEKA) UA PROTEIN DIPSTICK 30 (1+) mg/dL NEGATIVE A (test code = PROU) UA UROBILINIOGEN Normal mg/dL NEGATIVE DIPSTICK (test code = URO) UA NITRITE DIPSTICK NEGATIVE NEGATIVE (test code = EDUARDO) UA LEUKOCYTE ESTERASE 25 Geneva/uL NEGATIVE A W REFLEX (test code = (Trace) Geneva/uL LEUUR) UA WBC (test code = 6-10 per HPF 0-5 A WBCU) UA RBC (test code = 0-2 #/HPF 0-5 RBCU) UA EPITHELIAL CELLS FEW per HPF FEW (test code = EPIU) UA BACTERIA (test FEW #/HPF NONE A code = BACU) UA MUCUS (test code = MANY #/LPF FEW A MUCU) Urine Source? Clean CatchDRUGS OF ABUSE SCREEN [id number] 07:40:00 Test Item Value Reference Range Interpretation Comments URN COCAINE (test code = POSITIVE See_Comment [A utomated message] COCAURN) The system whic h generated this result transmitted ref erence range: <300 ng/ mL. The reference r sidra was not used to interpret this result as normal/abnor mal. URN CANNABINOIDS (test POSITIVE See_Comment [Aut omated message] code = CANNABURN) The system which generated this result transmitted ref erence range: <50 ng/m L. The reference range was not used to int erpret this result as normal/abnormal . URN AMPHETAMINE (test POSITIVE See_Comment [Auto mated message] code = AMPHETURN) The system which generated this result transmitted ref erence range: <1000 ng /mL. The reference r sidra was not used to interpret this result as normal/abnor mal. URN BARBITURATE (test NEGATIVE See_Comment [Auto mated message] code = BARBITURN) The system which generated this result transmitted ref erence range: <200 ng/ mL. The reference r sidra was not used to interpret this result as normal/abnor mal. URN BENZODIAZEPINE (test POSITIVE See_Comment [A utomated message] code = BENZOURN) The system which generated this result transmitted ref erence range: <200 ng/ mL. The reference r sidra was not used to interpret this result as normal/abnor mal. URN OPIATES (test code = NEGATIVE See_Comment [A utomated message] OPIATURN) The system [employer] generated this result transmitted ref erence range: <300 ng/ mL. The reference r sidra was not used to interpret this result as normal/abnor mal. URN PHENCYCLIDINE (PCP) NEGATIVE See_Comment [Au tomated message] (test code = PHENCURN) The s ystem which generated this result transmitted ref erence range: <25 ng/m L. The reference range was not used to int erpret this result as normal/abnormal . URN METHADONE (test code NEGATIVE See_Comment [A utomated message] = METHAURN) The system [employer] generated this result transmitted ref erence range: <300 ng/ mL. The reference r sidra was not used to interpret this result as normal/abnor mal. Urine Source? Clean CatchBASIC METABOLIC [id number] 11:10:00 Test Item Value Reference Range Interpretation Comments SODIUM (test code = 142 mmol/L 136-145 N NA) POTASSIUM (test code 3.4 mmol/L 3.5-5.1 L = K) CHLORIDE (test code 108.0 mmol/L 98-107 H = CL) CARBON DIOXIDE (test 25.0 mmol/L 21-32 N code = CO2) ANION GAP (test code 12.4 10-20 N = GAP) GLUCOSE (test code = 95 mg/dL 74-106 N GLU) BLOOD UREA NITROGEN 16 mg/dL 7-18 N (test code = BUN) GLOMERULAR > 60 mL/min See_Comment Estimated GFR b y FILTRATION RATE using Modifi ed MDRD (test code = GFR) formula.Ch ronic kidney disease is defined as eith er kidney damageor GFR <60 mL/min/1.73 m2 for >3 months. [Automated mess age] The system [employer] generated this result transmitted ref erence range: >=60. Th e reference range was not used to int erpret this result as normal/abnormal . CREATININE (test 1.00 mg/dL 0.7-1.3 N code = CREAT) BUN/CREATININE RATIO 16.8 10-20 N (test code = BUN/CREA) CALCIUM (test code = 9.1 mg/dL 8.5-10.1 N CA) HEPATIC FUNCTION [id number] 11:10:00 Test Item Value Reference Range Interpretation Comments TOTAL PROTEIN (test 7.0 gram/dL 6.4-8.2 N code = PROT) ALBUMIN (test code = 4.2 g/dL 3.4-5.0 N ALB) GLOBULIN (test code = 2.8 gram/dL 2.7-4.2 N GLOB) ALBUMIN/GLOBULIN RATIO 1.5 0.75-1.50 N (test code = A/G) BILIRUBIN TOTAL (test 0.80 mg/dL 0.0-1.0 N code = BILT) BILIRUBIN DIRECT (test 0.30 mg/dL 0.0-0.20 H code = BILD) SGOT/AST (test code = 36 IUnit/L 15-37 N AST) SGPT/ALT (test code = 21 IUnit/L 12-78 N ALT) ALKALINE PHOSPHATASE 69 IUnit/L 45-117 N Note change in TOTAL (test code = reference range due ALKP) to change in reagent. CREATINE KINASE (CK)2022-05-08 11:10:00 Test Item Value Reference Range Interpretation Comments CREATINE KINASE (CK) (test code = 674 IUnit/L 26-208 H CK) [id number] 11:10:00 Test Item Value Reference Range Interpretation Comments ACETAMINOPHEN (test code < 0.2 mg/dL 1.0-3.0 L CAU TION: TO = ACET) CONVERT FROM MG /DL TO MCG/ML MULTI PLY RESULT BY10 [id number] 11:10:00 Test Item Value Reference Range Interpretation Comments SALICYLATE (test code = BIGG) < 3.0 mg/dL 2.8-20.0 N [id number] 11:10:00 Test Item Value Reference Range Interpretation Comments ALCOHOL (test code < 3 mg/dL 0.0-3.0 N --------- --------INTERPRE = ALC) TIVE DATA NOTE: POSITIVE SCREEN ING RESULTS SHOULD BE CONSIDERED PRESUMPTIVE.WHE N COLLECTED FOR M EDICAL PURPOSES ONLY. SPECIMEN WILL NOTBE TESSA ECTED BY CHAIN OF CUSTOD Y.IF A CONFIRMATION OF POSITIVE RESULTS IS DELORIS RED, ACONFIRMATION T EST MUST BE REQUESTED BY THE PHYSICIAN AT AN ADDITIONAL CHARGE TO THE P ATIENT. COVID 19 INHOUSE [id number] 10:50:00 Test Item Value Reference Range Interpretation Comments COVID 19 INHOUSE AG (test code = NEGATIVE NEGATIVE [id number]) CBC W/O [id number] 10:40:00 Test Item Value Reference Range Interpretation Comments WHITE BLOOD CELL (test code = 6.3 K/mm3 4.5-12.5 N WBC) RED BLOOD CELL (test code = 4.65 mill/mm3 4.0-5.8 N RBC) HEMOGLOBIN (test code = HGB) 13.7 gram/dL 13.0-17.5 N HEMATOCRIT (test code = HCT) 40.6 % 42.0-52.0 L MEAN CELL VOLUME (test code = 87.3 fL 80-98 N MCV) MEAN CELL HGB (test code = MCH) 29.5 picogram 27.0-33.0 N MEAN CELL HGB CONCETRATION 33.7 gram/dL 33.0-36.0 N (test code = MCHC) RED CELL DISTRIBUTION WIDTH 12.1 % 11.6-16.2 N (test code = RDW) PLATELET COUNT (test code = 234 K/mm3 150-450 N PLT) MEAN PLATELET VOLUME (test code 11.5 fL 6.7-11.0 H = MPV) COMPREHENSIVE METABOLIC [id number] 02:29:00 Test Item Value Reference Range Interpretation Comments SODIUM (test code = 139 mmol/L 136-145 N NA) POTASSIUM (test code 3.3 mmol/L 3.5-5.1 L = K) CHLORIDE (test code = 105.0 mmol/L 98-107 N CL) CARBON DIOXIDE (test 26.0 mmol/L 21-32 N code = CO2) ANION GAP (test code 11.3 10-20 N = GAP) GLUCOSE (test code = 105 mg/dL 74-106 N GLU) BLOOD UREA NITROGEN 10 mg/dL 7-18 N (test code = BUN) GLOMERULAR FILTRATION > 60 mL/min See_Comment Estima mikey GFR by RATE (test code = using Lucian fied MDRD GFR) formula.Chronic kidney disease is defined as eith er kidney damageor GFR <60 mL/min/1.73 m2 for >3 months. [Automated mess age] The system [employer] generated this result transmit mikey reference range : >=60. The refer ence range was not u sed to interpret th is result as normal/abnormal . CREATININE (test code 1.00 mg/dL 0.7-1.3 N = CREAT) BUN/CREATININE RATIO 9.5 10-20 L (test code = BUN/CREA) TOTAL PROTEIN (test 6.5 gram/dL 6.4-8.2 N code = PROT) ALBUMIN (test code = 4.2 g/dL 3.4-5.0 N ALB) GLOBULIN (test code = 2.3 gram/dL 2.7-4.2 L GLOB) ALBUMIN/GLOBULIN 1.8 0.75-1.50 H RATIO (test code = A/G) CALCIUM (test code = 8.8 mg/dL 8.5-10.1 N CA) BILIRUBIN TOTAL (test 0.50 mg/dL 0.0-1.0 N code = BILT) SGOT/AST (test code = 39 IUnit/L 15-37 H AST) SGPT/ALT (test code = 19 IUnit/L 12-78 N ALT) ALKALINE PHOSPHATASE 67 IUnit/L 45-117 N Note change in TOTAL (test code = reference range due ALKP) to change in reagent. [id number] 02:29:00 Test Item Value Reference Range Interpretation Comments MAGNESIUM (test code = MAG) 1.8 mg/dL 1.8-2.4 N CBC W/AUTO [id number] 02:14:00 Test Item Value Reference Range Interpretation Comments WHITE BLOOD CELL (test code = 6.9 K/mm3 4.5-12.5 N WBC) RED BLOOD CELL (test code = 4.27 mill/mm3 4.0-5.8 N RBC) HEMOGLOBIN (test code = HGB) 12.7 gram/dL 13.0-17.5 L HEMATOCRIT (test code = HCT) 37.2 % 42.0-52.0 L MEAN CELL VOLUME (test code = 87.1 fL 80-98 N MCV) MEAN CELL HGB (test code = MCH) 29.7 picogram 27.0-33.0 N MEAN CELL HGB CONCETRATION 34.1 gram/dL 33.0-36.0 N (test code = MCHC) RED CELL DISTRIBUTION WIDTH 11.8 % 11.6-16.2 N (test code = RDW) RED CELL DISTRIBUTION WIDTH SD 37.2 fL 37.0-51.0 N (test code = RDW-SD) PLATELET COUNT (test code = 193 K/mm3 150-450 N PLT) MEAN PLATELET VOLUME (test code 11.3 fL 6.7-11.0 H = MPV) NEUTROPHIL % (test code = NT%) 52.4 % 39.0-69.0 N IMMATURE GRANULOCYTE % (test 0.4 % 0.0-5.0 N code = IG%) LYMPHOCYTE % (test code = LY%) 31.6 % 25.0-55.0 N MONOCYTE % (test code = MO%) 10.0 % 0.0-10.0 N EOSINOPHIL % (test code = EO%) 4.9 % 0.0-5.0 N BASOPHIL % (test code = BA%) 0.7 % 0.0-1.0 N NUCLEATED RBC % (test code = 0.0 % 0-0 N NRBC%) NEUTROPHIL # (test code = NT#) 3.59 K/mm3 1.8-7.7 N IMMATURE GRANULOCYTE # (test 0.03 x10 3/uL 0-0.03 N code = IG#) LYMPHOCYTE # (test code = LY#) 2.17 K/mm3 1.0-5.0 N MONOCYTE # (test code = MO#) 0.69 K/mm3 0-0.8 N EOSINOPHIL # (test code = EO#) 0.34 K/mm3 0.0-0.5 N BASOPHIL # (test code = BA#) 0.05 K/mm3 0.0-0.2 N NUCLEATED RBC # (test code = 0.00 K/mm3 0.0-0.1 N NRBC#) [id number] 19:38:00 Test Item Value Reference Range Interpretation Comments GLUBED (test code = 119 mg/dL 74-106 H Performe d by certified GLUBED) driver operator at [facility] BASIC METABOLIC [id number] 03:44:00 Test Item Value Reference Range Interpretation Comments SODIUM (test code = 140 mmol/L 136-145 N NA) POTASSIUM (test code 3.7 mmol/L 3.5-5.1 N = K) CHLORIDE (test code 106.0 mmol/L 98-107 N = CL) CARBON DIOXIDE (test 28.0 mmol/L 21-32 N code = CO2) ANION GAP (test code 9.7 10-20 L = GAP) GLUCOSE (test code = 96 mg/dL 74-106 N GLU) BLOOD UREA NITROGEN 9 mg/dL 7-18 N (test code = BUN) GLOMERULAR > 60 mL/min See_Comment Estimated GFR b y FILTRATION RATE using Modifi ed MDRD (test code = GFR) formula.[facility] kidney disease is defined as eith er kidney damageor GFR <60 mL/min/1.73 m2 for >3 months. [Automated mess age] The system [employer] generated this result transmitted ref erence range: >=60. Th e reference range was not used to int erpret this result as normal/abnormal . CREATININE (test 0.80 mg/dL 0.7-1.3 N code = CREAT) BUN/CREATININE RATIO 10.7 10-20 N (test code = BUN/CREA) CALCIUM (test code = 9.3 mg/dL 8.5-10.1 N CA) [id number] 03:44:00 Test Item Value Reference Range Interpretation Comments MAGNESIUM (test code = MAG) 2.0 mg/dL 1.8-2.4 N CBC W/AUTO [id number] 03:32:00 Test Item Value Reference Range Interpretation Comments WHITE BLOOD CELL (test code = 8.4 K/mm3 4.5-12.5 N WBC) RED BLOOD CELL (test code = 4.45 mill/mm3 4.0-5.8 N RBC) HEMOGLOBIN (test code = HGB) 13.1 gram/dL 13.0-17.5 N HEMATOCRIT (test code = HCT) 39.1 % 42.0-52.0 L MEAN CELL VOLUME (test code = 87.9 fL 80-98 N MCV) MEAN CELL HGB (test code = MCH) 29.4 picogram 27.0-33.0 N MEAN CELL HGB CONCETRATION 33.5 gram/dL 33.0-36.0 N (test code = MCHC) RED CELL DISTRIBUTION WIDTH 11.9 % 11.6-16.2 N (test code = RDW) RED CELL DISTRIBUTION WIDTH SD 38.0 fL 37.0-51.0 N (test code = RDW-SD) PLATELET COUNT (test code = 184 K/mm3 150-450 N PLT) MEAN PLATELET VOLUME (test code 11.3 fL 6.7-11.0 H = MPV) NEUTROPHIL % (test code = NT%) 66.2 % 39.0-69.0 N IMMATURE GRANULOCYTE % (test 0.4 % 0.0-5.0 N code = IG%) LYMPHOCYTE % (test code = LY%) 18.6 % 25.0-55.0 L MONOCYTE % (test code = MO%) 12.2 % 0.0-10.0 H EOSINOPHIL % (test code = EO%) 2.1 % 0.0-5.0 N BASOPHIL % (test code = BA%) 0.5 % 0.0-1.0 N NUCLEATED RBC % (test code = 0.0 % 0-0 N NRBC%) NEUTROPHIL # (test code = NT#) 5.55 K/mm3 1.8-7.7 N IMMATURE GRANULOCYTE # (test 0.03 x10 3/uL 0-0.03 N code = IG#) LYMPHOCYTE # (test code = LY#) 1.56 K/mm3 1.0-5.0 N MONOCYTE # (test code = MO#) 1.02 K/mm3 0-0.8 H EOSINOPHIL # (test code = EO#) 0.18 K/mm3 0.0-0.5 N BASOPHIL # (test code = BA#) 0.04 K/mm3 0.0-0.2 N NUCLEATED RBC # (test code = 0.00 K/mm3 0.0-0.1 N NRBC#) MANUAL DIFF REQUIRED (test code NO = MDIFF) - [facility] [id number] 20:54:00 [facility])Name: VICTOR M SCHULER : 1990 Sex: M Name: VICTOR M SCHULER [facility] : 1990 Age/S: 31 / M [address] [facility] Unit #: [id number] Loc: [place] [address] Phys: Alexsandra Perez Acct: [id number] Dis Date: Status: ADM IN PHONE #: [phone] Exam Date: 03/03/20222038 FAX #: [phone] Reason: ABD PAIN EXAMS: CPT CODE: [id number] US ABDOMEN LTD [id number] REASON FOR EXAM: ABD PAIN EXAM ORDER DATE: 03/03/2022 12:02 PM Attending M.D.: Alexsandra Perez PROCEDURE: - US ABDOMEN LTD Technique: Grayscale and color Doppler images of the right-upper quadrant of the abdomen. Comparison: None FINDINGS: Aorta and IVC: Patent andgrossly normal in caliber. Liver: Size: 15.7 cm craniocaudally Parenchyma and contour: Smooth contour. Normal echogenicity. Cysts and/or masses: None. Intrahepatic bile ducts: No intrahepatic biliary ductal dilation Common bile duct: 2.6 mm in diameter. No echogenic filling defects in visualized duct.Gallbladder: Stones/sludge: No intraluminal stones or sludge. Wall: 1.8 mm in thickness. No discontinuity. No polyps. No pericholecystic fluid. No hyperemia. Sonographic Kovacs's sign: Negative Portal vein: Portal vein caliber is within normal limits. Portal vein is patent with hepatopetal flow. Pancreas: Incompletely visualized. However the visualized portions are grossly within normal limits. Rightkidney: parenchyma echogenicity: Normal echogenicity size: 11.6 x 4.2 x 4 cm stones: none cysts/masses: none PAGE 1 Signed Report (CONTINUED) Name: VICTOR M SCHULER [facility] : 1990 Age/S:31 / M [address] [facility] Unit #: [id number] Loc: [place] [address] Phys: Alexsandra Perez MSN Acct: [id number] Dis Date: Status: ADM IN PHONE #: [phone] Exam Date: 03/03/20222038 FAX #: Reason: ABD PAIN EXAMS: CPT CODE: [id number] US ABDOMEN LTD 40116 <Continued> hydronephrosis: none Ascites/pleural effusions: None IMPRESSION: Sonographically unremarkable abdomen. Location: [facility] at 2053 Reported and signed by: Jim Gomez M.D. CC: Alexsandra Perez MSN Technologist: Khadra Gamez Trnmab Date/Time: 03/03/2022 (2053) [email or web address] Orig Print D/T: S: 03/03/2022 (2058) Probe: PAGE 2 Signed ReportLACTIC [id number] 11:30:00 Test Item Value Reference Range Interpretation Comments LACTIC ACID (test 2.0 mmol/L 0.4-1.9 H Results ca lled to code = LACT) [id number] by 11OJ L8605 03/03/22 1130Cr itical results verifie d and read back by Parris rse? YES FOR ALL ICU PATIENT EXCLUDING HOLD PLEASE CALL [phone] DRUGS OF ABUSE SCREEN [id number] 09:50:00 Test Item Value Reference Range Interpretation Comments UA PH DIPSTICK (test 5.5 5.0-8.0 code = TAMEKA) URN COCAINE (test code = POSITIVE See_Comment [A utomated message] COCAURN) The system [employer] generated this result transmitted ref erence range: <300 ng/ mL. The reference r sidra was not used to interpret this result as normal/abnor mal. URN CANNABINOIDS (test POSITIVE See_Comment [Aut omated message] code = CANNABURN) The system which generated this result transmitted ref erence range: <50 ng/m L. The reference range was not used to int erpret this result as normal/abnormal . URN AMPHETAMINE (test NEGATIVE See_Comment [Auto mated message] code = AMPHETURN) The system which generated this result transmitted ref erence range: <1000 ng /mL. The reference r sidra was not used to interpret this result as normal/abnor mal. URN BARBITURATE (test NEGATIVE See_Comment [Auto mated message] code = BARBITURN) The system which generated this result transmitted ref erence range: <200 ng/ mL. The reference r sidra was not used to interpret this result as normal/abnor mal. URN BENZODIAZEPINE (test NEGATIVE See_Comment [A utomated message] code = BENZOURN) The system which generated this result transmitted ref erence range: <200 ng/ mL. The reference r sidra was not used to interpret this result as normal/abnor mal. URN OPIATES (test code = NEGATIVE See_Comment [A utomated message] OPIATURN) The system [employer] generated this result transmitted ref erence range: <300 ng/ mL. The reference r sidra was not used to interpret this result as normal/abnor mal. URN PHENCYCLIDINE (PCP) NEGATIVE See_Comment [Au tomated message] (test code = PHENCURN) The s ystem which generated this result transmitted ref erence range: <25 ng/m L. The reference range was not used to int erpret this result as normal/abnormal . URN METHADONE (test code NEGATIVE See_Comment [A utomated message] = METHAURN) The system [employer] generated this result transmitted ref erence range: <300 ng/ mL. The reference r sidra was not used to interpret this result as normal/abnor mal. URINALYSIS [id number] 09:06:00 Test Item Value Reference Range Interpretation Comments UA COLOR (test code = Light-Yellow YELLOW COLU) UA APPEARANCE (test CLEAR CLEAR IS THE S AMPLE code = APPU) FROM ER OR L&D? Y IF THE ANSWER I S NO,PLEASE DOCUMENT TWO RN SIGNATURES HERE - by [id number] 03/03/22 0906 UA GLUCOSE DIPSTICK NEGATIVE mg/dL NEGATIVE (test code = DGLUU) UA BILIRUBIN DIPSTICK NEGATIVE mg/dL NEGATIVE (test code = BILU) UA KETONE DIPSTICK NEGATIVE mg/dL NEGATIVE (test code = KETU) UA SPECIFIC GRAVITY 1.009 1.001-1.035 (test code = SGU) UA BLOOD DIPSTICK Negative mg/dL NEGATIVE (test code = MARGIE) UA PH DIPSTICK (test 5.5 5.0-8.0 code = TAMEKA) UA PROTEIN DIPSTICK NEGATIVE mg/dL NEGATIVE (test code = PROU) UA UROBILINIOGEN Normal mg/dL NEGATIVE DIPSTICK (test code = URO) UA NITRITE DIPSTICK NEGATIVE NEGATIVE (test code = EDUARDO) UA LEUKOCYTE ESTERASE NEGATIVE Geneva/uL NEGATIVE W REFLEX (test code = LEUUR) UA WBC (test code = NONE SEEN per 0-5 WBCU) HPF UA RBC (test code = NONE SEEN #/HPF 0-5 RBCU) UA EPITHELIAL CELLS None seen per FEW (test code = EPIU) HPF UA BACTERIA (test NONE SEEN #/HPF NONE code = BACU) Urine Source? Clean Catch- CT ABD PELVIS [id number] 08:55:00 [facility])Name: VICTOR M SCHULER : 1990 Sex: M Name: VICTOR M SCHULER [facility] : 1990 Age/S: 31 / M [address] Unit #: [id number] Loc: [place] [address] Phys: Dee Kat MD Acct: [id number] Dis Date: Status: REG ER PHONE #: [phone] Exam Date: 03/03/2022824 FAX #: [phone] Reason: ABD PAIN EXAMS: CPT CODE: [id number] CT ABD PELVIS W/CONT 42365 HISTORY: Abdominal pain. COMPARISON: CT scan from October 20192020. Location: [facility]. CT abdomen and pelvis with IV contrast: 100 mL of Isovue-370. CT dose reduction protocol: Automated exposure control adjustment of mA and/or kV according to patient size oriterative reconstruction dose optimization techniques were used. CT ABDOMEN: The lung bases are clear. The liver is enhancing homogeneously. No mass or architectural distortion. Portal vein and hepatic artery are patent. Gallbladder is without radiopaque stones. The liver is measuring 17.7 cm in length. The spleen is not enlarged. Homogeneous enhancement. The stomach distended incompletely and is very limited in evaluation with thickened wall. Thickened distal esophagus. Pancreas is enhancing homogeneously. Unremarkable adrenals. Both kidneys demonstrating mild hydroureteronephrosis. Excretion is noted. This likely represents sequela of outlet obstruction. No pathologic adenopathy. Well-opacifiedabdominal and pelvic vasculature. No bowel obstruction or colitis or diverticulitis or enteritis. Con stipation. CT PELVIS: Patient is post appendectomy. Pelvic bowel loops are unobstructed. No free fluid or free air or abscess. Markedly distended urinary bladder likely resulting in hydroureteronephrosis. Placement of Rosario catheter if patient is unable to void. The prostate is not enlarged. No pelvicpathologic adenopathy Subcutaneous tissues and the musculature are normal in appearance. No PAGE 1 Signed Report (CONTINUED) Name: VICTOR M SCHULER [facility] : 1990 Age/S: 31 / M [address] [facility] Unit #: [id number] Loc: [place] [address] Phys: Dee Kat MD Acct: [id number] DisDate: Status: REG ER PHONE #: [phone] Exam Date: 03/03/2022824 FAX #: [phone] Reason: AB D PAIN EXAMS: CPT CODE: [id number] CT ABD PELVIS W/CONT 88862 <Continued> lytic or blastic lesions are noted within the bony skeleton. IMPRESSION: Mild bilateral hydroureteronephrosis with markedly distended urinary bladder and possible bladder outlet obstruction. If patient is unable to void ofFoley catheter recommended. Patient is post appendectomy. No bowel obstruction or colitis or diverticulitis or enteritis. No free fluid or free air or abscess. No pathologic adenopathy. at 0855 Reported and signed by: Paul López M.D. CC: Dee Kat MD Technologist:Arya Valadez RT(R),(MR),(CT) CTDI: DLP: Trnscb Date/Time: 03/03/2022 (08) t.[email or web address] Orig Print D/T: S: 03/03/2022 (89) PAGE 2 Signed ReportLACTIC [id number] 08:32:00 Test Item Value Reference Range Interpretation Comments LACTIC ACID (test 3.5 mmol/L 0.4-1.9 HH Results ca lled to code = LACT) [id number] by 11OJ L8605 03/03/22 0831Cr itical results verifie d and read back by Nu rse? YES FOR ALL ICU PATIENT EXCLUDING HOLD PLEASE CALL [phone] [id number] 07:37:00 Test Item Value Reference Range Interpretation Comments ACETAMINOPHEN (test code = ACET) < 0.2 mg/dL 1.0-3.0 L [id number] 07:37:00 Test Item Value Reference Range Interpretation Comments SALICYLATE (test code = BIGG) < 3.0 mg/dL 2.8-20.0 N [id number] 07:37:00 Test Item Value Reference Range Interpretation Comments ALCOHOL (test code = 8 mg/dL 0.0-3.0 H ------- INTERPRET ALC) JOSEFINA DATA NOTE: POSITIVE SCREEN ING RESULTS SHOULD BE CONSI DERED PRESUMPTIVE.WHE N COLLECTED FOR MEDICAL PUR POSES ONLY. SPECIMEN WILL N OTBE COLLECTED BY NELIA OF CUSTODY.IF A CO NFIRMATION OF POSITIVE RES ULTS IS DESIRED, ACONFI RMATION TEST MUST BE RE QUESTED BY THE PHYSICIAN Nayla T ANADDITIONAL CH ARGE TO THE PATIENT. BASIC METABOLIC [id number] 07:37:00 Test Item Value Reference Range Interpretation Comments SODIUM (test code = 136 mmol/L 136-145 N NA) POTASSIUM (test code 4.1 mmol/L 3.5-5.1 N = K) CHLORIDE (test code 101.0 mmol/L 98-107 N = CL) CARBON DIOXIDE (test 19.0 mmol/L 21-32 L code = CO2) ANION GAP (test code 20.1 10-20 H = GAP) GLUCOSE (test code = 107 mg/dL 74-106 H GLU) BLOOD UREA NITROGEN 15 mg/dL 7-18 N (test code = BUN) GLOMERULAR > 60 mL/min See_Comment Estimated GFR b y FILTRATION RATE using Modifi ed MDRD (test code = GFR) formula.[facility] kidney disease is defined as eith er kidney damageor GFR <60 mL/min/1.73 m2 for >3 months. [Automated mess age] The system [employer] generated this result transmitted ref erence range: >=60. Th e reference range was not used to int erpret this result as normal/abnormal . CREATININE (test 1.30 mg/dL 0.7-1.3 N code = CREAT) BUN/CREATININE RATIO 11.4 10-20 N (test code = BUN/CREA) CALCIUM (test code = 9.7 mg/dL 8.5-10.1 N CA) HEPATIC FUNCTION [id number] 07:37:00 Test Item Value Reference Range Interpretation Comments TOTAL PROTEIN (test 8.0 gram/dL 6.4-8.2 N code = PROT) ALBUMIN (test code = 4.8 g/dL 3.4-5.0 N ALB) GLOBULIN (test code = 3.2 gram/dL 2.7-4.2 N GLOB) ALBUMIN/GLOBULIN RATIO 1.5 0.75-1.50 N (test code = A/G) BILIRUBIN TOTAL (test 0.50 mg/dL 0.0-1.0 N code = BILT) BILIRUBIN DIRECT (test 0.20 mg/dL 0.0-0.20 N code = BILD) SGOT/AST (test code = 47 IUnit/L 15-37 H AST) SGPT/ALT (test code = 27 IUnit/L 12-78 N ALT) ALKALINE PHOSPHATASE 68 IUnit/L 45-117 N Note change in TOTAL (test code = reference range due ALKP) to change in reagent. [id number] 07:37:00 Test Item Value Reference Range Interpretation Comments LIPASE (test code = LIP) 42 U/L 12-57 N [id number] 07:37:00 Test Item Value Reference Range Interpretation Comments TROPONIN-HS (test 4.380 pg/mL 0-45 N CAUTION: U nits of the code = TROPI) current test m ethodology (pg/mL)differ f rom the prior test meth odology (ng/mL) by a fa ctorof 1000. B-TYPE NATRIURETIC [id number] 07:36:00 Test Item Value Reference Range Interpretation Comments B-TYPE NATRIURETIC PEPTIDE (test 7.0 pgram/mL 0-100 N code = BNP) [id number] 07:32:00 Test Item Value Reference Range Interpretation Comments AMMONIA (test code = AMM) 48 umol/L 11-32 H LACTIC [id number] 07:29:00 Test Item Value Reference Range Interpretation Comments LACTIC ACID (test 6.7 mmol/L 0.4-1.9 HH Results ca lled to code = LACT) [id number] by 11OJ [id number] 03/03/22 0729Cr itical results verifie d and read back by Parris rse? YES FOR ALL ICU PATIENT EXCLUDING HOLD PLEASE CALL [phone] PROTHROMBIN [id number] 06:57:00 Test Item Value Reference Range Interpretation Comments PROTHROMBIN TIME 12.4 seconds 9.0-14.0 N PATIENT (test code = PTP) INTERNATIONAL NORMAL 1.1 0.8-1.2 N The the rapeutic range RATIO (test code = for oral INR) anticoagulant t herapy formost indicat ions is an internati onal normalized rati o (INR)of between 2.0 and 3.0. The recommended therapeutic INR range for various cli nical situations is l isted below: Clinical Situat ion INR range Pulmonary embol ism treatment (2.0-3.0)Venous thrombosis treatmentVenous thrombosis prophylaxis (hi gh risk surgery)Prevent ion of systemic emboli sm from: Acute myocardial infa rction Valvular heart disease Atrial fibrillation Mechanical pros thetic heart valves (2.5-3.5) IS PATIENT ON ANTICOAGULANTS? NTHROMBOPLASTIN TIME [id number] 06:57:00 Test Item Value Reference Range Interpretation Comments THROMBOPLASTIN TIME PARTIAL 31.0 seconds 23.0-37.0 N (test code = PTT) IS PATIENT ON ANTICOAGULANTS? NCBC W/AUTO [id number] 06:43:00 Test Item Value Reference Range Interpretation Comments WHITE BLOOD CELL (test code = 16.7 K/mm3 4.5-12.5 H WBC) RED BLOOD CELL (test code = 4.64 mill/mm3 4.0-5.8 N RBC) HEMOGLOBIN (test code = HGB) 13.8 gram/dL 13.0-17.5 N HEMATOCRIT (test code = HCT) 40.5 % 42.0-52.0 L MEAN CELL VOLUME (test code = 87.3 fL 80-98 N MCV) MEAN CELL HGB (test code = MCH) 29.7 picogram 27.0-33.0 N MEAN CELL HGB CONCETRATION 34.1 gram/dL 33.0-36.0 N (test code = MCHC) RED CELL DISTRIBUTION WIDTH 11.7 % 11.6-16.2 N (test code = RDW) RED CELL DISTRIBUTION WIDTH SD 37.7 fL 37.0-51.0 N (test code = RDW-SD) PLATELET COUNT (test code = 228 K/mm3 150-450 N PLT) MEAN PLATELET VOLUME (test code 11.5 fL 6.7-11.0 H = MPV) NEUTROPHIL % (test code = NT%) 85.0 % 39.0-69.0 H IMMATURE GRANULOCYTE % (test 0.5 % 0.0-5.0 N code = IG%) LYMPHOCYTE % (test code = LY%) 7.8 % 25.0-55.0 L MONOCYTE % (test code = MO%) 6.5 % 0.0-10.0 N EOSINOPHIL % (test code = EO%) 0.0 % 0.0-5.0 N BASOPHIL % (test code = BA%) 0.2 % 0.0-1.0 N NUCLEATED RBC % (test code = 0.0 % 0-0 N NRBC%) NEUTROPHIL # (test code = NT#) 14.19 K/mm3 1.8-7.7 H IMMATURE GRANULOCYTE # (test 0.08 x10 3/uL 0-0.03 H code = IG#) LYMPHOCYTE # (test code = LY#) 1.30 K/mm3 1.0-5.0 N MONOCYTE # (test code = MO#) 1.08 K/mm3 0-0.8 H EOSINOPHIL # (test code = EO#) 0.00 K/mm3 0.0-0.5 N BASOPHIL # (test code = BA#) 0.03 K/mm3 0.0-0.2 N NUCLEATED RBC # (test code = 0.00 K/mm3 0.0-0.1 N NRBC#) MANUAL DIFF REQUIRED (test code NO = MDIFF) - XR CHEST 1 [id number] 06:43:00 [facility])Name: VICTOR M SCHULER : 1990 Sex: M FAX: Dee Kat MD [phone] [place]: St: REG Name: VICTOR M SCHULER [facility] : 1990 Age/S:31/M [address] [facility] Unit #: [id number] Loc: [place] [address] Phys: Dee Kat MD Acct: [id number] Dis Date: Status: REG ER PHONE #: [phone] Exam Date: 03/03/2022627 FAX #: Reason: CODE SEPSIS EXAMS: CPT CODE: [id number] XR CHEST 1 V 54339 EXAM: - XR CHEST 1 V HISTORY: Pain. COMPARISON: 09/30/2021. FINDINGS: Single AP view of the chest is provided. Heart size and vascularity are within normal limits. There is no evidence of a focal consolidation. There is no pleural effusion or pneumothorax. There is no definite acute osseous abnormality. IMPRESSION: No radiographic evidence of acute cardiopulmonary process. at 0643 Reported and signed by: Eduar Reyes MD CC: Dee Kat MD Technologist: JOELLEN NIXON JR RT(R) Trnscrd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 FINDINGS: SULCI AND VENTRICLES: Appropriate for age. No hydrocephalus. PARENCHYMA: No CT evidence of acute large territorial infarct, parenchymal hemorrhage ormass effect. EXTRA AXIAL SPACE: No epidural or subdural hematoma. No mass. SCALP: No abnormalities. BONES: No skull fractures or aggressive calvarial lesions. PARTIALLY IMAGED FACE /PARANASAL SINUSES: Paranasal sinuses are clear. MASTOID AIR CELLS: No effusion. IMPRESSION: 1. No CT evidence of acute intracranial process. at 0101 Reported and signed by: Julieta Reid M.D. CC: Eusebio Bro MD Technologist:RT SHELLIE CTDI: DLP: Trnscb Date/Time: 11/03/2021 (100) [email or web address].TH15 Orig Print D/T: S: 11/03/2021 (010) PAGE 1 Signed Report- CT ABD PELVIS W/[id number] 19:13:00 [facility])Name: VICTOR M SCHULER : 1990 Sex: M Name: VICTOR M SCHULER [facility] : 1990 Age/S: 30 / M [address] [facility] Unit #: [id number] Loc: [place] [address] Phys: Darren Hernández DO Acct: [id number] Dis Date: Status: PRE ER PHONE #: [phone] Exam Date: 09/30/20211904 FAX #: [phone] Reason:ABD PAIN BLOOD IN STOOL EXAMS: CPT CODE: [id number] CT ABD PELVIS W/CONT 92212 EXAM: CT ABDOMEN/PELVIS WITH CONTRAST HISTORY: Pain TECHNIQUE: Helical imaging was performed diaphragm through the symphysis with multiplanar reformations obtained. IV CONTRAST: 100cc Omnipaque 300 GI CONTRAST: No DOSE: CT imaging performed at this location utilizes radiation dose optimization technique which includes one or more of the followin) Automated exposure control; 2) Adjustment of the mA and/or kV according to patient's size; 3) Use of iterative reconstruction techniques COMPARISON: None FINDINGS: LOWER CHEST: The visualized lung bases are clear. Visualized heart is unremarkable. SOLID ORGANS: No focal liver lesions. No intra or extrahepatic biliary ductal dilation. No calcified gallstones are noted. The spleen, pancreas, and adrenal glands are normal in appearance. Both kidneys demonstrate normal corticomedullary phase of enhancement. No renal/ureteral calculus, hydronephrosis, mass, or cyst is apparent. BOWEL: The small bowel and colon are normal in caliber without wall thickening. Status post appendectomy. No signs of obstruction.] PERITONEUM: No free intraperitoneal fluid or air. RETROPERITONEUM:Normal caliber of the abdominal aorta is noted. No lymphadenopathy. PELVIS: The visualized urinary bl adder wall is normal thickness. Organs of reproduction are unremarkable. MUSCULOSKELETAL: No acute osseous abnormality is seen. No destructive lytic or blastic osseous lesion is noted. SOFT TISSUES: Noventral abdominal hernia. No anasarca. PAGE 1 Signed Report (CONTINUED) Name: MAR SCHULERQUE [facility] : 1990 Age/S: 30 / M [address] [facility] Unit #: [id number] Loc: [place] [address] Phys: Darren Hernández DO Acct: [id number] Dis Date: Status: PRE ER PHONE #: [phone] Exam Date: 09/30/20211904 FAX #: [phone] Reason: ABD PAIN BLOOD IN STOOL EXAMS: CPTCODE: [id number] CT ABD PELVIS W/CONT 94704 <Continued> IMPRESSION: No acute abnormality of the abdomen or pelvis. SL: [id number] at 1913 Reported and signed by: Jim Gomez M.D. CC: Darren Hernández DO Technologist:AUSTEN JEWELL CTCTDI: DLP: Trnscb Date/Time: 09/30/2021 (1912) [email or web address] Orig Print D/T: S: 09/30/2021 (1915) PAGE 2 Signed ReportBASIC METABOLIC [id number] 18:56:00 Test Item Value Reference Range Interpretation Comments SODIUM (test code = 136 mmol/L 135-148 N NA) POTASSIUM (test code 3.7 mmol/L 3.5-5.1 N = K) CHLORIDE (test code = 97 mmol/L 101-109 L CL) CARBON DIOXIDE (test 28.6 mmol/L 21-32 N code = CO2) ANION GAP (test code 14 mmol/L 10-20 N = GAP) GLUCOSE (test code = 105 mg/dL 74-106 N GLU) BLOOD UREA NITROGEN 14 mg/dL 3-21 N (test code = BUN) GLOMERULAR FILTRATION > 60 mL/min See_Comment Estima mikey GFR by RATE (test code = using Lucian fied MDRD GFR) formula.Chronic kidney disease is defined as eith er kidney damageor GFR <60 mL/min/1.73 m2 for >3 months. [Automated mess age] The system [employer] generated this result transmitted ref erence range: >=60. Th e reference range was not used to int erpret this result as normal/abnormal . CREATININE (test code 1.09 mg/dL 0.55-1.3 N = CREAT) BUN/CREATININE RATIO 12.8 10-20 N (test code = BUN/CREA) CALCIUM (test code = 9.7 mg/dL 8.4-10.2 N CA) HEPATIC FUNCTION [id number] 18:56:00 Test Item Value Reference Range Interpretation Comments TOTAL PROTEIN (test 8.5 g/dL 6.5-8.4 H code = PROT) ALBUMIN (test code = 4.5 g/dL 3.4-4.8 N ALB) GLOBULIN (test code = 4.0 G/DL 1-10 N GLOB) ALBUMIN/GLOBULIN RATIO 1.1 RATIO 0.75-1.50 N (test code = A/G) BILIRUBIN TOTAL (test 1.00 mg/dL 0.0-1.0 N code = BILT) BILIRUBIN DIRECT (test 0.20 mg/dL 0.0-0.30 N code = BILD) SGOT/AST (test code = 20 U/L 6-32 N AST) SGPT/ALT (test code = 18 U/L 12-78 N Note: Change in ALT) REFERENCE RANGE due to new reagent method. ALKALINE PHOSPHATASE 73 U/L 38-126 N TOTAL (test code = ALKP) [id number] 18:56:00 Test Item Value Reference Range Interpretation Comments LIPASE (test code = LIP) 69 U/L 128-270 L [id number] 18:56:00 Test Item Value Reference Range Interpretation Comments TROPONIN-HS (test 4.1 pg/mL 0-60 N CAUTION: U nits of the code = TROPI) current test m ethodology (pg/mL)differ f rom the prior test meth odology (ng/mL) by a fa ctorof 1000. URINALYSIS [id number] 18:53:00 Test Item Value Reference Range Interpretation Comments UA COLOR (test code = YELLOW YELLOW COLU) UA APPEARANCE (test code CLEAR CLEAR = APPU) UA GLUCOSE DIPSTICK (test norm mg/dL NEGATIVE code = DGLUU) UA BILIRUBIN DIPSTICK NEGATIVE mg/dL NEGATIVE (test code = BILU) UA KETONE DIPSTICK (test neg mg/dL NEGATIVE code = KETU) UA SPECIFIC GRAVITY (test 1.010 1.001-1.035 code = SGU) UA BLOOD DIPSTICK (test neg Tal/uL NEGATIVE code = MARGIE) UA PH DIPSTICK (test code 6.0 5.0-8.0 = TAMEKA) UA PROTEIN DIPSTICK (test neg mg/dL Neg-15 code = PROU) UA UROBILINIOGEN DIPSTICK norm mg/dL 0.0-0.2 (test code = URO) UA NITRITE DIPSTICK (test NEGATIVE NEGATIVE code = EDUARDO) UA LEUKOCYTE ESTERASE neg uL NEGATIVE DIPSTICK (test code = LEUU) UA WBC (test code = WBCU) 0-5 per HPF 0-5 UA RBC (test code = RBCU) NONE SEEN per HPF 0-5 UA EPITHELIAL CELLS (test Rare (0-1/hpf) per Few code = EPIU) HPF UA BACTERIA (test code = FEW per HPF NONE BACU) Urine Source? Clean CatchPROTHROMBIN [id number] 18:45:00 Test Item Value Reference Range Interpretation Comments PROTHROMBIN TIME 11.0 seconds 9.0-13.0 N PATIENT (test code = PTP) INTERNATIONAL NORMAL 1.1 0.8-1.2 N The the rapeutic range RATIO (test code = for oral INR) anticoagulant t herapy formost indicat ions is an internati onal normalized rati o (INR)of between 2.0 and 3.0. The recommended therapeutic INR range for various cli nical situations is l isted below: Clinical Situat ion INR range Pulmonary embol ism treatment (2.0-3.0)Venous thrombosis treatmentVenous thrombosis prophylaxis (hi gh risk surgery)Prevent ion of systemic emboli sm from: Acute myocardial infa rction Valvular heart disease Atrial fibrillation Mechanical pros thetic heart valves (2.5-3.5) IS PATIENT ON ANTICOAGULANTS? NTHROMBOPLASTIN TIME [id number] 18:45:00 Test Item Value Reference Range Interpretation Comments THROMBOPLASTIN TIME 24.5 seconds 25.5-34.3 L Therapeu tic Range PARTIAL (test code = for pat ients on PTT) Heparin Therapy is 2 to2.5 times t heir baseline PTT le sharon. IS PATIENT ON ANTICOAGULANTS? NCBC W/O [id number] 18:30:00 Test Item Value Reference Range Interpretation Comments WHITE BLOOD CELL (test code = 7.1 K/mm3 4.5-12.5 N WBC) RED BLOOD CELL (test code = 5.16 mill/mm3 4.0-5.8 N RBC) HEMOGLOBIN (test code = HGB) 15.2 gram/dL 13.0-17.5 N HEMATOCRIT (test code = HCT) 44.8 % 42.0-52.0 N MEAN CELL VOLUME (test code = 86.8 fL 80-98 N MCV) MEAN CELL HGB (test code = MCH) 29.5 picogram 27.0-33.0 N MEAN CELL HGB CONCETRATION 33.9 gram/dL 33.0-36.0 N (test code = MCHC) RED CELL DISTRIBUTION WIDTH 11.4 % 11.6-16.2 L (test code = RDW) RED CELL DISTRIBUTION WIDTH SD 36.6 fL 37.0-51.0 L (test code = RDW-SD) PLATELET COUNT (test code = 252 K/mm3 150-450 N PLT) MEAN PLATELET VOLUME (test code 10.6 fL 6.7-11.0 N = MPV) - XR CHEST 1 [id number] 18:26:00 [facility])Name: VICTOR M SCHULER : 1990 Sex: M Name: MAR SCHULERQUE [facility] : 1990 Age/S:30 /M [address] [facility] Unit#:[id number] Loc: [place], [place] [address] Phys: Darren Hernández DO Dis Date: PHONE #: [phone] Status: PRE ER FAX #: [phone] Exam Date: 09/30/2021 Reason:Abdominal Pain EXAMS: CPT CODE: [id number] XR CHEST 1 V [id number] REASON FOR EXAM: Abdominal Pain Exam Or rebecca Date: 09/30/2021 6:15 PM Ordering Shey: Darren Hernández DO PROCEDURE: - XR CHEST 1 V COMPARISON: 08/19/2021 FINDINGS: Lines/Tubes: None The lungs are clear. There is no pleural effusion or pneumothorax. Pulmonary vascularity is within normal limits. Cardiomediastinal silhouette and mediastinal contours are unchanged when accounting for differences in technique. Musculoskeletal structures and visualized portions of the upper abdomen are also unchanged. IMPRESSION: No acute cardiopulmonary process. Location: at 1826 Reported and signed by: Jim oGmez M.D. CC: Darren Hernández DO Technologist: MARIEL CHOUDHARY RT(R),CT Trnscrpt Data: 09/30/2021 (182) [email or web address] Orig Print D/T: S: 09/30/2021 (1830) PAGE 1 Signed ReportCOVID 19 Asymptomatic IH [id number] 01:28:00 Test Item Value Reference Range Interpretation Comments COVID 19 Asymptomatic IH AG (test NEGATIVE NEGATIVE code = COVNONPUIAG) URINALYSIS [id number] 00:52:00 Test Item Value Reference Range Interpretation Comments UA COLOR (test code = YELLOW YELLOW COLU) UA APPEARANCE (test CLEAR CLEAR IS THE S AMPLE code = APPU) FROM ER OR L&D? Y IF THE ANSWER I S NO,PLEASE DOCUMENT TWO RN SIGNATURES HERE - by [id number] 08/20/21 0026 UA GLUCOSE DIPSTICK NEGATIVE mg/dL NEGATIVE (test code = DGLUU) UA BILIRUBIN DIPSTICK NEGATIVE mg/dL NEGATIVE (test code = BILU) UA KETONE DIPSTICK NEGATIVE mg/dL NEGATIVE (test code = KETU) UA SPECIFIC GRAVITY 1.020 1.001-1.035 (test code = SGU) UA BLOOD DIPSTICK Negative mg/dL NEGATIVE (test code = MARGIE) UA PH DIPSTICK (test 6.5 5.0-8.0 code = TAMEKA) UA PROTEIN DIPSTICK 10 (Trace) mg/dL NEGATIVE A (test code = PROU) UA UROBILINIOGEN Normal mg/dL NEGATIVE DIPSTICK (test code = URO) UA NITRITE DIPSTICK NEGATIVE NEGATIVE (test code = EDUARDO) UA LEUKOCYTE ESTERASE NEGATIVE [place]/uL NEGATIVE W REFLEX (test code = LEUUR) UA WBC (test code = 51-100 per HPF 0-5 A WBCU) UA RBC (test code = 11-20 #/HPF 0-5 A RBCU) UA EPITHELIAL CELLS FEW per HPF FEW (test code = EPIU) UA BACTERIA (test FEW #/HPF NONE A code = BACU) UA MUCUS (test code = FEW #/LPF FEW MUCU) Urine Source? Clean CatchDRUGS OF ABUSE SCREEN [id number] 00:52:00 Test Item Value Reference Range Interpretation Comments URN COCAINE (test code = NEGATIVE See_Comment [A utomated message] COCAURN) The system [employer] generated this result transmitted ref erence range: <300 ng/ mL. The reference r sidra was not used to interpret this result as normal/abnor mal. URN CANNABINOIDS (test POSITIVE See_Comment [Aut omated message] code = CANNABURN) The system which generated this result transmitted ref erence range: <50 ng/m L. The reference range was not used to int erpret this result as normal/abnormal . URN AMPHETAMINE (test POSITIVE See_Comment [Auto mated message] code = AMPHETURN) The system which generated this result transmitted ref erence range: <1000 ng /mL. The reference r sidra was not used to interpret this result as normal/abnor mal. URN BARBITURATE (test NEGATIVE See_Comment [Auto mated message] code = BARBITURN) The system which generated this result transmitted ref erence range: <200 ng/ mL. The reference r sidra was not used to interpret this result as normal/abnor mal. URN BENZODIAZEPINE (test NEGATIVE See_Comment [A utomated message] code = BENZOURN) The system which generated this result transmitted ref erence range: <200 ng/ mL. The reference r sidra was not used to interpret this result as normal/abnor mal. URN OPIATES (test code = NEGATIVE See_Comment [A utomated message] OPIATURN) The system [employer] generated this result transmitted ref erence range: <300 ng/ mL. The reference r sidra was not used to interpret this result as normal/abnor mal. URN PHENCYCLIDINE (PCP) NEGATIVE See_Comment [Au tomated message] (test code = PHENCURN) The s ystem which generated this result transmitted ref erence range: <25 ng/m L. The reference range was not used to int erpret this result as normal/abnormal . URN METHADONE (test code NEGATIVE See_Comment [A utomated message] = METHAURN) The system [employer] h generated this result transmitted ref erence range: <300 ng/ mL. The reference r sidra was not used to interpret this result as normal/abnor mal. Urine Source? Clean [id number] 00:29:00 Test Item Value Reference Range Interpretation Comments ACETAMINOPHEN (test code = ACET) < 0.2 mg/dL 1.0-3.0 L [id number] 00:29:00 Test Item Value Reference Range Interpretation Comments SALICYLATE (test code = BIGG) < 3.0 mg/dL 2.8-20.0 N [id number] 00:29:00 Test Item Value Reference Range Interpretation Comments ALCOHOL (test code = 3 mg/dL 0.0-3.0 N ------- INTERPRET ALC) JOSEFINA DATA NOTE: POSITIVE SCREEN ING RESULTS SHOULD BE CONSI DERED PRESUMPTIVE.WHE N COLLECTED FOR MEDICAL PUR POSES ONLY. SPECIMEN WILL N OTBE COLLECTED [facility].IF A CO NFIRMATION OF POSITIVE RES ULTS IS DESIRED, ACONFI RMATION TEST MUST BE RE QUESTED BY THE PHYSICIAN Nayla T ANADDITIONAL CH ARGE TO THE PATIENT. [id number] 00:29:00 Test Item Value Reference Range Interpretation Comments LIPASE (test code = LIP) 39 U/L 12-57 N [id number] 00:29:00 Test Item Value Reference Range Interpretation Comments TROPONIN-HS (test <4.0 pg/mL 0-45 N CAUTION: U nits of the code = TROPI) current test m ethodology (pg/mL)differ f rom the prior test meth odology (ng/mL) by a fa ctorof 1000. BASIC METABOLIC [id number] 00:29:00 Test Item Value Reference Range Interpretation Comments SODIUM (test code = 139 mmol/L 136-145 N NA) POTASSIUM (test code 3.9 mmol/L 3.5-5.1 N = K) CHLORIDE (test code 102.0 mmol/L 98-107 N = CL) CARBON DIOXIDE (test 28.0 mmol/L 21-32 N code = CO2) ANION GAP (test code 12.9 10-20 N = GAP) GLUCOSE (test code = 106 mg/dL 74-106 N GLU) BLOOD UREA NITROGEN 14 mg/dL 7-18 N (test code = BUN) GLOMERULAR > 60 mL/min See_Comment Estimated GFR b y FILTRATION RATE using Modifi ed MDRD (test code = GFR) formula. ron kidney disease is defined as eith er kidney damageor GFR <60 mL/min/1.73 m2 for >3 months. [Automated mess age] The system [employer] generated this result transmitted ref erence range: >=60. Th e reference range was not used to int erpret this result as normal/abnormal . CREATININE (test 1.30 mg/dL 0.7-1.3 N code = CREAT) BUN/CREATININE RATIO 10.8 10-20 N (test code = BUN/CREA) CALCIUM (test code = 9.7 mg/dL 8.5-10.1 N CA) HEPATIC FUNCTION [id number] 00:29:00 Test Item Value Reference Range Interpretation Comments TOTAL PROTEIN (test 7.7 gram/dL 6.4-8.2 N code = PROT) ALBUMIN (test code = 4.6 g/dL 3.4-5.0 N ALB) GLOBULIN (test code = 3.1 gram/dL 2.7-4.2 N GLOB) ALBUMIN/GLOBULIN RATIO 1.5 0.75-1.50 N (test code = A/G) BILIRUBIN TOTAL (test 1.20 mg/dL 0.0-1.0 H code = BILT) BILIRUBIN DIRECT (test 0.40 mg/dL 0.0-0.20 H code = BILD) SGOT/AST (test code = 46 IUnit/L 15-37 H AST) SGPT/ALT (test code = 11 IUnit/L 12-78 L ALT) ALKALINE PHOSPHATASE 81 IUnit/L 45-117 N Note change in TOTAL (test code = reference range due ALKP) to change in reagent. CBC W/O [id number] 23:43:00 Test Item Value Reference Range Interpretation Comments WHITE BLOOD CELL (test code = 6.3 K/mm3 4.5-12.5 N WBC) RED BLOOD CELL (test code = 4.84 mill/mm3 4.0-5.8 N RBC) HEMOGLOBIN (test code = HGB) 13.9 gram/dL 13.0-17.5 N HEMATOCRIT (test code = HCT) 43.5 % 42.0-52.0 N MEAN CELL VOLUME (test code = 89.9 fL 80-98 N MCV) MEAN CELL HGB (test code = MCH) 28.7 picogram 27.0-33.0 N MEAN CELL HGB CONCETRATION 32.0 gram/dL 33.0-36.0 L (test code = MCHC) RED CELL DISTRIBUTION WIDTH 11.9 % 11.6-16.2 N (test code = RDW) PLATELET COUNT (test code = 246 K/mm3 150-450 N PLT) MEAN PLATELET VOLUME (test code 11.1 fL 6.7-11.0 H = MPV) - XR CHEST 1 [id number] 21:58:00 [facility] ([facility])Name: VICTOR M SCHULER : 1990 Sex: M FAX: Dee Kat MD [phone] [place]: [address] St: REG Name: VICTOR M SCHULER [facility] : 1990 Age/S: 30/M [facility] Unit #: [id number] Loc: [place] [address] Phys: Dee Kat MD Acct: [id number] Dis Date: Status: REG ER PHONE #: [phone] Exam Date: 08/19/20212153 FAX #: Reason: CHEST PAIN EXAMS: CPT CODE: [id number] XR CHEST 1 V [id number] REASON FOR EXAM: CHEST PAIN Exam Order Date: 08/19/2021 9:35 PM Ordering M.Timo.: Dee Kat MD PROCEDURE: - XR CHEST 1 V COMPARISON: 05/20/2020 FINDINGS: Lines/Tubes: None The lungs are clear. There is no pleural effusionor pneumothorax. Pulmonary vascularity is within normal limits. Cardiomediastinal silhouette and mediastinal contours are unchanged when accounting for differences in technique. Musculoskeletal structures and visualized portions of the upper abdomen are also unchanged. IMPRESSION: No acute cardiopulmonary process. Location: at 2157 Reported and signed by: Jim Gomez M.D. CC: Dee Kat MD Technologist: Valerie Padron RT(R) Trnscrd Date/Time/By: 08/19/2021 (2157) : By: [email or web address] Orig Print D/T: S: 08/19/2021 (2200) PAGE 1 Signed ReportUA, Urinalysis Rflx [id number] 10:30:00 Test Item Value Reference Range Interpretation Comments Color,Urine (test code = Yellow Y UCOL) Clarity,Urine (test code = Clear Clear UCLAR) PH,Urine (test code = 7.0 5.5-8.5 UPH.XX) Specific [place],Urine 1.020 1.005-1.030 N (test code = USG) Blood,Urine (test code = Negative cells/uL Negative UBLD) Protein,Urine (test code = Negative mg/dL Negative UPRO) Glucose,Urine (UA) (test Negative mg/dL Negative code = UGLU) Ketones,Urine (test code = Trace mg/dL Negative A UKET) Nitrate,Urine (test code = Negative Negative UNIT) Bilirubin,Urine (test code Negative mg/dL Negative = UBIL) Urobilinogen,Urine (test 0.2 mg/dL Negative code = UURO) Leukocyte Esterase,Urine Negative cells/uL Negative (test code = ULEU) Drug Screen,[id number] 10:30:00 Test Item Value Reference Range Interpretation Comments PCP Phencyclidine Negative Negative Screen,Urine (test code = PCPU) Amphetamine Positive Negative A Confirmation by GC/MS Screen,Urine (test code not routinely = AMPU) performed. Ifconfirmation is required, an or rebecca must be placed. Methadone Screen,Urine Negative Negative (test code = METHU) Opiate Screen,Urine Negative Negative (test code = UOPIS) Barbituates Negative Negative Screen,Urine (test code = BARBU) Benzodiazepines Negative Negative Screen,Urine (test code = UBENZS) Cocaine Screen,Urine Negative Negative (test code = UCOCS) Cannabinoid Positive Negative A Screen,Urine (test code = UTHCS) Propoxyphene Screen, Negative Negative Urine (test code = UPROP) Complete Blood Count Auto [id number] 10:29:00 Test Item Value Reference Range Interpretation Comments White Blood Count (test code = 7.5 x10 3/uL 4.4-10.5 N WBCT) Red Blood Count (test code = 4.98 x10 6/uL 4.10-5.70 N RBC) Hemoglobin (test code = HGBT) 14.6 g/dL 13.4-17.4 N Hematocrit (test code = HCTT) 44.3 % 38.7-52.0 N Mean Corpuscular Volume (test 89.00 fL 80.00-100.00 N code = MCV) Mean Corpuscular Hemoglobin 29.3 pg 27.0-32.5 N (test code = MCH) Mean Corpuscular HGB Conc 33.00 g/dL 32.00-37.50 N (test code = MCHC) RDW Coefficient of Variation 11.8 % 11.5-14.5 N (test code = RDWCV) Platelet Count (test code = 256.0 x10 3/uL 140.0-440.0 N PLTT) Mean Platelet Volume (test 11.3 fL code = MPV) Immature Granulocytes % (Auto) 0.5 % 0.0-5.0 N (test code = IMMGRAN%) Neutrophils % (Auto) (test 67.5 % 36.0-70.0 N code = NE%) Lymphocytes % (Auto) (test 22.2 % 12.0-44.0 N code = LY%) Monocytes % (Auto) (test code 8.2 % 0.0-11.0 N = MO%) Eosinophils % (Auto) (test 0.9 % 0.0-7.0 N code = EO%) Basophils % (Auto) (test code 0.7 % 0.0-2.0 N = BA%) Immature Granulocytes # (Auto) 0.04 x10 3/uL (test code = IMMGRAN#) Neutrophils # (Auto) (test 5.1 x10 3/uL 1.6-7.4 N code = NE#) Lymphocytes # (Auto) (test 1.67 x10 3/uL 0.50-4.60 N code = LY#) Monocytes # (Auto) (test code 0.62 x10 3/uL 0.00-1.20 N = MO#) Eosinophils # (Auto) (test 0.07 x10 3/uL 0.00-0.74 N code = EO#) Basophils # (Auto) (test code 0.05 x10 3/uL 0.00-0.21 N = BA#) nRBC Abs (test code = NRBCA) 0 nRBC Pct (test code = NRBCP) 0 % Comprehensive Metabolic [id number] 10:29:00 Test Item Value Reference Range Interpretation Comments SODIUM (test code = NA) 139.0 mmol/L 136.0-145.0 N Potassium,K (test code = K) 3.8 mmol/L 3.0-5.1 N Chloride (test code = CL) 104 mmol/L 98-107 N Carbon Dioxide (test code = 24 mmol/L 20-31 N CO2) Anion Gap (test code = GAP) 11 mmol/L 5-15 N Blood Urea Nitrogen (test code 12 mg/dL 9-23 N = BUN) Creatinine (test code = CREATT) 1.05 mg/dL 0.55-1.02 H Creatinine Clr Calc Pharmacy 112.91 mL/min (test code = CRCLPHA) Estimated GFR ( Lina > 60 mL/min/1.73m2 (test code = EGFRAA) Estimated GFR (Non Afr Lina > 60 mL/min/1.73m2 (test code = EGFRNAA) BUN/Creatinine Ratio (test code 11 ratio 10-20 N = BCRATIO) Glucose (test code = GLU) 97 mg/dL 74-106 N Osmolality,Calculated (test 287.2 code = OSMOC) Calcium (test code = CA) 10.1 mg/dL 8.3-10.6 N Bilirubin,Total (test code = 1.5 mg/dL 0.2-1.1 H BILIT) Aspartate Amino Transferase 21 U/L 0-34 N (test code = AST) Alanine Aminotransferase (test 13 U/L 10-49 N code = ALT) Total Protein (test code = TP) 8.2 g/dL 5.7-8.2 N Albumin Level (test code = ALB) 5.5 g/dL 3.2-4.8 H Globulin (test code = GLOB) 2.7 mg/dL 2.3-3.5 N Albumin/Globulin Ratio (test 2.0 ratio 0.8-2.0 N code = AGRATIO) Alkaline Phosphatase (test code 83 U/L 46-116 N = ALP) Ethanol [id number] 10:29:00 Test Item Value Reference Range Interpretation Comments Ethanol (test code = ETOH) < 3 mg/dL Coronavirus PCR, COVID19 [id number] 10:28:00 Test Item Value Reference Range Interpretation Comments Coronavirus PCR, For use under Emergency COVID19 Rapid (test Use Authorization (EUA) code = SARSCOV2) only. Coronavirus PCR, Reference Range: COVID19 Rapid (test Negative code = UNIWCSX30.1) SARS-CoV-2 PCR Result: Negative by PCR (test code = SARS-CoV-2 PCR Result:) COVID-19 Status: AsymptomaticPOCT VBG POC docked [id number] 21:37:06 Test Item Value Reference Range Interpretation Comments pH, Morris POC (test code 7.41 7.33-7.43 = 56171330) pCO2,Morris POC (test code 44.7 See_Comment [Au tomated = [id number]) message] The sy stem which generated this result transmitted reference range : 38 - 50 mmHg. The reference range was not used to interpret this result as normal/abnormal . PO2, Venous POC (BKR) 50 See_Comment [Auto mated (test code = 38758253) messa ge] The system which generated this result transmitted reference range : 50 - 75 mm Hg. The reference range was not used to interpret this result as normal/abnormal . Ionized Calcium POC 1.23 mmol/L 1.15-1.29 (test code = 31911014) HCO3, Morris POC (test 28 mmol/L 22-26 H code = 07490742) TCO2 POC (test code = 30 mmol/L 21-32 84277792) Base Excess Morris POC 3 mmol/L (test code = 77519992) Sample Type (test code IVEN Physi kelsey Notified = 88792339) % Sat, Morris POC (test 85 % code = 60921036) Lab Interpretation Abnormal (test code = 62533-9) [id number]:18:0412 LEAD EKG FOR [facility] Test Date: [id number] Name: VICTOR M LEDEZMAZ Department: [id number] ID: [id number] Room: Gender: M Dye House Helper: [id number]: 1990 Requested By: SUSY SPANN Order Number: [id number] Reading MD: osiel galeas MeasurementsIntervals [place] Rate: 117P: 76PR: 152 QRS: -65QRSD: 96 T: 69QT: 321 QTc: 391 Interpretive StatementsSINUS TACHYCARDIAINDETERMINATE AXISElectronically Signed On 08-18-2021 20:21:11 CDT by osiel Zeng12 Lead [id number] 21:27:5212 LEAD EKG FOR [facility] Test Date: [id number] Name: VICTOR M SAUNDERSQUEZ Department: 5520Patient ID: [id number] Room: Gender: M Dye House Helper: [id number]: 1990 Requested By: SANDY Order Number: [id number] Reading MD: aKrl Hernández MD MeasurementsIntervals [place] Rate: 103 P:66PR: 144 QRS: 176QRSD: 93 T: 46QT: 326 QTc: 386 Interpretive StatementsSINUS TACHYCARDIAINDETERMINATE AXISElectronically Signed On 08-06-2021 21:32:51 CDT by Karl Hernández [facility] Auto [id number] 00:35:00 Test Item Value Reference Range Interpretation Comments White Blood Count (test code = 7.6 x10 3/uL 4.4-10.5 N WBCT) Red Blood Count (test code = 4.61 x10 6/uL 4.10-5.70 N RBC) Hemoglobin (test code = HGBT) 13.8 g/dL 13.4-17.4 N Hematocrit (test code = HCTT) 40.8 % 38.7-52.0 N Mean Corpuscular Volume (test 88.50 fL 80.00-100.00 N code = MCV) Mean Corpuscular Hemoglobin 29.9 pg 27.0-32.5 N (test code = MCH) Mean Corpuscular HGB Conc 33.80 g/dL 32.00-37.50 N (test code = MCHC) RDW Coefficient of Variation 11.4 % 11.5-14.5 L (test code = RDWCV) Platelet Count (test code = 232.0 x10 3/uL 140.0-440.0 N PLTT) Mean Platelet Volume (test 12.2 fL code = MPV) Immature Granulocytes % (Auto) 0.1 % 0.0-5.0 N (test code = IMMGRAN%) Neutrophils % (Auto) (test 67.9 % 36.0-70.0 N code = NE%) Lymphocytes % (Auto) (test 22.9 % 12.0-44.0 N code = LY%) Monocytes % (Auto) (test code 5.9 % 0.0-11.0 N = MO%) Eosinophils % (Auto) (test 2.5 % 0.0-7.0 N code = EO%) Basophils % (Auto) (test code 0.7 % 0.0-2.0 N = BA%) Immature Granulocytes # (Auto) 0.01 x10 3/uL (test code = IMMGRAN#) Neutrophils # (Auto) (test 5.2 x10 3/uL 1.6-7.4 N code = NE#) Lymphocytes # (Auto) (test 1.75 x10 3/uL 0.50-4.60 N code = LY#) Monocytes # (Auto) (test code 0.45 x10 3/uL 0.00-1.20 N = MO#) Eosinophils # (Auto) (test 0.19 x10 3/uL 0.00-0.74 N code = EO#) Basophils # (Auto) (test code 0.05 x10 3/uL 0.00-0.21 N = BA#) nRBC Abs (test code = NRBCA) 0 nRBC Pct (test code = NRBCP) 0 % Comprehensive Metabolic [id number] 00:35:00 Test Item Value Reference Range Interpretation Comments SODIUM (test code = NA) 142.0 mmol/L 136.0-145.0 N Potassium,K (test code = K) 3.8 mmol/L 3.0-5.1 N Chloride (test code = CL) 106 mmol/L 98-107 N Carbon Dioxide (test code = 28 mmol/L 20-31 N CO2) Anion Gap (test code = GAP) 8 mmol/L 5-15 N Blood Urea Nitrogen (test code 13 mg/dL 9-23 N = BUN) Creatinine (test code = CREATT) 1.00 mg/dL 0.55-1.02 N Creatinine Clr Calc Pharmacy 132.61 mL/min (test code = CRCLPHA) Estimated GFR ( Lina > 60 mL/min/1.73m2 (test code = EGFRAA) Estimated GFR (Non Afr Lina > 60 mL/min/1.73m2 (test code = EGFRNAA) BUN/Creatinine Ratio (test code 13 ratio 10-20 N = BCRATIO) Glucose (test code = GLU) 83 mg/dL 74-106 N Osmolality,Calculated (test 292.6 code = OSMOC) Calcium (test code = CA) 9.1 mg/dL 8.3-10.6 N Bilirubin,Total (test code = 1.4 mg/dL 0.2-1.1 H BILIT) Aspartate Amino Transferase 62 U/L 0-34 H (test code = AST) Alanine Aminotransferase (test 24 U/L 10-49 N code = ALT) Total Protein (test code = TP) 7.5 g/dL 5.7-8.2 N Albumin Level (test code = ALB) 5.1 g/dL 3.2-4.8 H Globulin (test code = GLOB) 2.4 mg/dL 2.3-3.5 N Albumin/Globulin Ratio (test 2.1 ratio 0.8-2.0 H code = AGRATIO) Alkaline Phosphatase (test code 81 U/L 46-116 N = ALP) Ethanol [id number] 00:35:00 Test Item Value Reference Range Interpretation Comments Ethanol (test code = ETOH) < 3 mg/dL UA, Urinalysis Rflx Cult/[id number] 16:14:00 Test Item Value Reference Range Interpretation Comments Color,Urine (test code = Yellow Y UCOL) Clarity,Urine (test code = Clear Clear UCLAR) PH,Urine (test code = 6.0 5.5-8.5 UPH.XX) Specific [place],Urine 1.010 1.005-1.030 N (test code = USG) Blood,Urine (test code = Trace cells/uL Negative A UBLD) Protein,Urine (test code = Negative mg/dL Negative UPRO) Glucose,Urine (UA) (test Negative mg/dL Negative code = UGLU) Ketones,Urine (test code = Negative mg/dL Negative UKET) Nitrate,Urine (test code = Negative Negative UNIT) Bilirubin,Urine (test code Negative mg/dL Negative = UBIL) Urobilinogen,Urine (test 0.2 mg/dL Negative code = UURO) Leukocyte Esterase,Urine Negative cells/uL Negative (test code = ULEU) Urine [id number] 16:14:00 Test Item Value Reference Range Interpretation Comments RBC,Urine (test code = URBC.XX) 2-5 /HPF None Seen WBC,Urine (test code = UWBC.XX) 0-1 /HPF None Seen Drug Screen,[id number] 16:14:00 Test Item Value Reference Range Interpretation Comments PCP Phencyclidine Screen,Urine (test Negative Negative code = PCPU) Amphetamine Screen,Urine (test code Negative Negative = AMPU) Methadone Screen,Urine (test code = Negative Negative METHU) Opiate Screen,Urine (test code = Negative Negative UOPIS) Barbituates Screen,Urine (test code Negative Negative = BARBU) Benzodiazepines Screen,Urine (test Negative Negative code = UBENZS) Cocaine Screen,Urine (test code = Positive Negative A UCOCS) Cannabinoid Screen,Urine (test code Negative Negative = UTHCS) Propoxyphene Screen, Urine (test Negative Negative code = UPROP) Complete Blood Count Auto [id number] 15:48:00 Test Item Value Reference Range Interpretation Comments White Blood Count (test code = 9.8 x10 3/uL 4.4-10.5 N WBCT) Red Blood Count (test code = 4.82 x10 6/uL 4.10-5.70 N RBC) Hemoglobin (test code = HGBT) 14.4 g/dL 13.4-17.4 N Hematocrit (test code = HCTT) 43.1 % 38.7-52.0 N Mean Corpuscular Volume (test 89.40 fL 80.00-100.00 N code = MCV) Mean Corpuscular Hemoglobin 29.9 pg 27.0-32.5 N (test code = MCH) Mean Corpuscular HGB Conc 33.40 g/dL 32.00-37.50 N (test code = MCHC) RDW Coefficient of Variation 11.9 % 11.5-14.5 N (test code = RDWCV) Platelet Count (test code = 246.0 x10 3/uL 140.0-440.0 N PLTT) Mean Platelet Volume (test 11.3 fL code = MPV) Immature Granulocytes % (Auto) 0.4 % 0.0-5.0 N (test code = IMMGRAN%) Neutrophils % (Auto) (test 74.3 % 36.0-70.0 H code = NE%) Lymphocytes % (Auto) (test 15.1 % 12.0-44.0 N code = LY%) Monocytes % (Auto) (test code 9.2 % 0.0-11.0 N = MO%) Eosinophils % (Auto) (test 0.6 % 0.0-7.0 N code = EO%) Basophils % (Auto) (test code 0.4 % 0.0-2.0 N = BA%) Immature Granulocytes # (Auto) 0.04 x10 3/uL (test code = IMMGRAN#) Neutrophils # (Auto) (test 7.3 x10 3/uL 1.6-7.4 N code = NE#) Lymphocytes # (Auto) (test 1.47 x10 3/uL 0.50-4.60 N code = LY#) Monocytes # (Auto) (test code 0.90 x10 3/uL 0.00-1.20 N = MO#) Eosinophils # (Auto) (test 0.06 x10 3/uL 0.00-0.74 N code = EO#) Basophils # (Auto) (test code 0.04 x10 3/uL 0.00-0.21 N = BA#) nRBC Abs (test code = NRBCA) 0 nRBC Pct (test code = NRBCP) 0 % Comprehensive Metabolic [id number] 15:48:00 Test Item Value Reference Range Interpretation Comments SODIUM (test code = NA) 136.0 mmol/L 136.0-145.0 N Potassium,K (test code = K) 3.7 mmol/L 3.0-5.1 N Chloride (test code = CL) 103 mmol/L 98-107 N Carbon Dioxide (test code = 22 mmol/L 20-31 N CO2) Anion Gap (test code = GAP) 11 mmol/L 5-15 N Blood Urea Nitrogen (test code 11 mg/dL 9-23 N = BUN) Creatinine (test code = CREATT) 1.01 mg/dL 0.55-1.02 N Creatinine Clr Calc Pharmacy 120.86 mL/min (test code = CRCLPHA) Estimated GFR ( Lina > 60 mL/min/1.73m2 (test code = EGFRAA) Estimated GFR (Non Afr Lina > 60 mL/min/1.73m2 (test code = EGFRNAA) BUN/Creatinine Ratio (test code 11 ratio 10-20 N = BCRATIO) Glucose (test code = GLU) 93 mg/dL 74-106 N Osmolality,Calculated (test 280.9 code = OSMOC) Calcium (test code = CA) 10.3 mg/dL 8.3-10.6 N Bilirubin,Total (test code = 1.2 mg/dL 0.2-1.1 H BILIT) Aspartate Amino Transferase 34 U/L 0-34 N (test code = AST) Alanine Aminotransferase (test 15 U/L 10-49 N code = ALT) Total Protein (test code = TP) 8.5 g/dL 5.7-8.2 H Albumin Level (test code = ALB) 6.0 g/dL 3.2-4.8 H Globulin (test code = GLOB) 2.5 mg/dL 2.3-3.5 N Albumin/Globulin Ratio (test 2.4 ratio 0.8-2.0 H code = AGRATIO) Alkaline Phosphatase (test code 88 U/L 46-116 N = ALP) Ethanol [id number] 15:48:00 Test Item Value Reference Range Interpretation Comments Ethanol (test code = ETOH) 4 mg/dL Coronavirus PCR, COVID19 [id number] 15:48:00 Test Item Value Reference Range Interpretation Comments Coronavirus PCR, For use under Emergency COVID19 Rapid (test Use Authorization (EUA) code = SARSCOV2) only. Coronavirus PCR, Reference Range: COVID19 Rapid (test Negative code = IPRMXOC87.1) SARS-CoV-2 PCR Result: Negative by PCR (test code = SARS-CoV-2 PCR Result:) COVID-19 Status: AsymptomaticComprehensive Metabolic [id number] 12:01:00 Test Item Value Reference Range Interpretation Comments SODIUM (test code = NA) 139.0 mmol/L 136.0-145.0 N Potassium,K (test code = K) 3.8 mmol/L 3.0-5.1 N Chloride (test code = CL) 107 mmol/L 98-107 N Carbon Dioxide (test code = 26 mmol/L 20-31 N CO2) Anion Gap (test code = GAP) 6 mmol/L 5-15 N Blood Urea Nitrogen (test code 9 mg/dL 9-23 N = BUN) Creatinine (test code = CREATT) 0.86 mg/dL 0.55-1.02 N Creatinine Clr Calc Pharmacy 141.94 mL/min (test code = CRCLPHA) Estimated GFR ( Lina > 60 mL/min/1.73m2 (test code = EGFRAA) Estimated GFR (Non Afr Lina > 60 mL/min/1.73m2 (test code = EGFRNAA) BUN/Creatinine Ratio (test code 10 ratio 10-20 N = BCRATIO) Glucose (test code = GLU) 93 mg/dL 74-106 N Osmolality,Calculated (test 286.2 code = OSMOC) Calcium (test code = CA) 9.8 mg/dL 8.3-10.6 N Bilirubin,Total (test code = 0.8 mg/dL 0.2-1.1 N BILIT) Aspartate Amino Transferase 31 U/L 0-34 N (test code = AST) Alanine Aminotransferase (test 12 U/L 10-49 N code = ALT) Total Protein (test code = TP) 7.1 g/dL 5.7-8.2 N Albumin Level (test code = ALB) 5.0 g/dL 3.2-4.8 H Globulin (test code = GLOB) 2.1 mg/dL 2.3-3.5 L Albumin/Globulin Ratio (test 2.4 ratio 0.8-2.0 H code = AGRATIO) Alkaline Phosphatase (test code 88 U/L 46-116 N = ALP) Ethanol [id number] 12:01:00 Test Item Value Reference Range Interpretation Comments Ethanol (test code = ETOH) 54 mg/dL Sars-CoV-2/FLU A/B RSV [id number] 10:37:00 Test Item Value Reference Range Interpretation Comments Sars-CoV-2/FLU A/B For use under Emergency RSV PCR (test code = Use Authorization (EUA) SARSFLURSVPCR) only. Sars-CoV-2/FLU A/B Reference Range: RSV PCR (test code = Negative SARSFLURSVPCR1.1) Influenza A PCR: Negative by Nucleic Acid (test code = Amplification Influenza A PCR:) Influenza B PCR: Negative by Nucleic Acid (test code = Amplification Influenza B PCR:) RSV PCR Result: (test Negative by Nucleic Acid code = RSV PCR Amplification Result:) SARS-CoV-2 PCR Negative by PCR Result: (test code = SARS-CoV-2 PCR Result:) Complete Blood Count Auto [id number] 10:17:00 Test Item Value Reference Range Interpretation Comments White Blood Count (test code = 9.4 x10 3/uL 4.4-10.5 N WBCT) Red Blood Count (test code = 4.89 x10 6/uL 4.10-5.70 N RBC) Hemoglobin (test code = HGBT) 14.9 g/dL 13.4-17.4 N Hematocrit (test code = HCTT) 45.0 % 38.7-52.0 N Mean Corpuscular Volume (test 92.00 fL 80.00-100.00 N code = MCV) Mean Corpuscular Hemoglobin 30.5 pg 27.0-32.5 N (test code = MCH) Mean Corpuscular HGB Conc 33.10 g/dL 32.00-37.50 N (test code = MCHC) RDW Coefficient of Variation 11.9 % 11.5-14.5 N (test code = RDWCV) Platelet Count (test code = 244.0 x10 3/uL 140.0-440.0 N PLTT) Mean Platelet Volume (test 11.6 fL code = MPV) Immature Granulocytes % (Auto) 0.4 % 0.0-5.0 N (test code = IMMGRAN%) Neutrophils % (Auto) (test 69.9 % 36.0-70.0 N code = NE%) Lymphocytes % (Auto) (test 22.9 % 12.0-44.0 N code = LY%) Monocytes % (Auto) (test code 5.8 % 0.0-11.0 N = MO%) Eosinophils % (Auto) (test 0.6 % 0.0-7.0 N code = EO%) Basophils % (Auto) (test code 0.4 % 0.0-2.0 N = BA%) Immature Granulocytes # (Auto) 0.04 x10 3/uL (test code = IMMGRAN#) Neutrophils # (Auto) (test 6.6 x10 3/uL 1.6-7.4 N code = NE#) Lymphocytes # (Auto) (test 2.16 x10 3/uL 0.50-4.60 N code = LY#) Monocytes # (Auto) (test code 0.55 x10 3/uL 0.00-1.20 N = MO#) Eosinophils # (Auto) (test 0.06 x10 3/uL 0.00-0.74 N code = EO#) Basophils # (Auto) (test code 0.04 x10 3/uL 0.00-0.21 N = BA#) nRBC Abs (test code = NRBCA) 0 nRBC Pct (test code = NRBCP) 0 % Ethanol [id number] 10:17:00 Test Item Value Reference Range Interpretation Comments Ethanol (test code = 106 mg/dL MIAH BARKLEY ETOH) UA, Urinalysis Rflx [id number] 10:16:00 Test Item Value Reference Range Interpretation Comments Color,Urine (test code Yellow Y = UCOL) Clarity,Urine (test Clear Clear code = UCLAR) PH,Urine (test code = 6.0 5.5-8.5 UPH.XX) Specific [place],Urine 1.020 1.005-1.030 N (test code = USG) Blood,Urine (test code Non-hemolyzed Trace Negative A = UBLD) cells/uL Protein,Urine (test Negative mg/dL Negative code = UPRO) Glucose,Urine (UA) Negative mg/dL Negative (test code = UGLU) Ketones,Urine (test Negative mg/dL Negative code = UKET) Nitrate,Urine (test Negative Negative code = UNIT) Bilirubin,Urine (test Negative mg/dL Negative code = UBIL) Urobilinogen,Urine 0.2 mg/dL Negative (test code = UURO) Leukocyte Trace cells/uL Negative A Esterase,Urine (test code = ULEU) Urine [id number] 10:16:00 Test Item Value Reference Range Interpretation Comments RBC,Urine (test code = URBC.XX) 0-2 /HPF None Seen WBC,Urine (test code = UWBC.XX) 2-5 /HPF None Seen Squamous Epithelial Cell,Urine (test 0-5 /HPF None Seen code = USQEPI.XX) Transitional Epi Cells,Urine (test 0-2 /HPF None Seen A code = UTREPI.XX) Drug Screen,[id number] 10:16:00 Test Item Value Reference Range Interpretation Comments PCP Phencyclidine Screen,Urine (test Negative Negative code = PCPU) Amphetamine Screen,Urine (test code Negative Negative = AMPU) Methadone Screen,Urine (test code = Negative Negative METHU) Opiate Screen,Urine (test code = Negative Negative UOPIS) Barbituates Screen,Urine (test code Negative Negative = BARBU) Benzodiazepines Screen,Urine (test Negative Negative code = UBENZS) Cocaine Screen,Urine (test code = Positive Negative A UCOCS) Cannabinoid Screen,Urine (test code Positive Negative A = UTHCS) Propoxyphene Screen, Urine (test Negative Negative code = UPROP) URINALYSIS [id number] 08:56:00 Test Item Value Reference Range Interpretation Comments UA COLOR (test code = YELLOW YELLOW COLU) UA APPEARANCE (test code Cloudy CLEAR A = APPU) UA GLUCOSE DIPSTICK (test NEGATIVE mg/dL NEGATIVE code = DGLUU) UA BILIRUBIN DIPSTICK NEGATIVE mg/dL NEGATIVE (test code = BILU) UA KETONE DIPSTICK (test 40 (2+) mg/dL NEGATIVE A code = KETU) UA SPECIFIC GRAVITY (test 1.033 1.001-1.035 code = SGU) UA BLOOD DIPSTICK (test Negative mg/dL NEGATIVE code = MARGIE) UA PH DIPSTICK (test code 6.0 5.0-8.0 = TAMEKA) UA PROTEIN DIPSTICK (test 50 (1+) mg/dL NEGATIVE A code = PROU) UA UROBILINIOGEN DIPSTICK Normal mg/dL NEGATIVE (test code = URO) UA NITRITE DIPSTICK (test NEGATIVE NEGATIVE code = EDUARDO) UA LEUKOCYTE ESTERASE W 250 [place]/uL (2+) NEGATIVE A REFLEX (test code = [place]/uL LEUUR) UA WBC (test code = WBCU) 21-50 per HPF 0-5 A UA RBC (test code = RBCU) 3-5 #/HPF 0-5 UA EPITHELIAL CELLS (test FEW per HPF FEW code = EPIU) UA BACTERIA (test code = FEW #/HPF NONE BACU) UA MUCUS (test code = MANY #/LPF FEW A MUCU) Urine Source? Clean CatchDRUGS OF ABUSE SCREEN [id number] 08:56:00 Test Item Value Reference Range Interpretation Comments URN COCAINE (test POSITIVE <300 ng/mL A This test provides only a code = COCAURN) preliminary test result. A morespecific alternate chemical method must be used in order t oobtain a confirmed sherry tical result. Gas chromatography/ mass spectrometry (G C/MS) is thepreferred co nfirmatory method. Other c hemical confirmationmet hods are available. Clin ical consideration a nd professional ju dgment should be appli ed to any drug of abusete st result, particularly wh en preliminary pos itive resultsare used.Unconfirme d screening resul ts must not be used fornon-medical purposes (e.g., employme nt testing, legalt esting). URN CANNABINOIDS POSITIVE <50 ng/mL A This test p rovides only a (test code = preliminary sapphire t result. CANNABURN) A morespecific alternate chemical method must be used in order t oobtain a confirmed sherry tical result. Gas chromatography/ mass spectrometry (G C/MS) is thepreferred co nfirmatory method. Other c hemical confirmationmet hods are available. Clin ical consideration a nd professional ju dgment should be appli ed to any drug of abusete st result, particularly wh en preliminary pos itive resultsare used.Unconfirme d screening resul ts must not be used fornon-medical purposes (e.g., employme nt testing, legalt esting). URN AMPHETAMINE (test POSITIVE <1000 ng/mL A This t est provides only a code = AMPHETURN) preliminar y test result. A morespecific alternate chemical method must be used in order t oobtain a confirmed sherry tical result. Gas chromatography/ mass spectrometry (G C/MS) is thepreferred co nfirmatory method. Other c hemical confirmationmet hods are available. Clin ical consideration a nd professional ju dgment should be appli ed to any drug of abusete st result, particularly wh en preliminary pos itive resultsare used.Unconfirme d screening resul ts must not be used fornon-medical purposes (e.g., employme nt testing, legalt esting). URN BARBITURATE (test NEGATIVE <200 ng/mL code = BARBITURN) URN BENZODIAZEPINE POSITIVE <200 ng/mL A This test provides only a (test code = preliminary sapphire t result. BENZOURN) A morespecific alternate chemical method must be used in order t oobtain a confirmed sherry tical result. Gas chromatography/ mass spectrometry (G C/MS) is thepreferred co nfirmatory method. Other c hemical confirmationmet hods are available. Clin ical consideration a nd professional ju dgment should be appli ed to any drug of abusete st result, particularly wh en preliminary pos itive resultsare used.Unconfirme d screening resul ts must not be used fornon-medical purposes (e.g., employme nt testing, legalt esting). URN OPIATES (test NEGATIVE <300 ng/mL code = OPIATURN) URN PHENCYCLIDINE NEGATIVE <25 ng/mL (PCP) (test code = PHENCURN) URN METHADONE (test NEGATIVE <300 ng/mL code = METHAURN) Urine Source? Clean CatchURINALYSIS [id number] 08:22:00 Test Item Value Reference Range Interpretation Comments UA COLOR (test code = YELLOW YELLOW COLU) UA APPEARANCE (test code Cloudy CLEAR A = APPU) UA GLUCOSE DIPSTICK (test NEGATIVE mg/dL NEGATIVE code = DGLUU) UA BILIRUBIN DIPSTICK NEGATIVE mg/dL NEGATIVE (test code = BILU) UA KETONE DIPSTICK (test 40 (2+) mg/dL NEGATIVE A code = KETU) UA SPECIFIC GRAVITY (test 1.033 1.001-1.035 code = SGU) UA BLOOD DIPSTICK (test Negative mg/dL NEGATIVE code = MARGIE) UA PH DIPSTICK (test code 6.0 5.0-8.0 = TAMEKA) UA PROTEIN DIPSTICK (test 50 (1+) mg/dL NEGATIVE A code = PROU) UA UROBILINIOGEN DIPSTICK Normal mg/dL NEGATIVE (test code = URO) UA NITRITE DIPSTICK (test NEGATIVE NEGATIVE code = EDUARDO) UA LEUKOCYTE ESTERASE W 250 [place]/uL (2+) NEGATIVE A REFLEX (test code = [place]/uL LEUUR) UA WBC (test code = WBCU) 21-50 per HPF 0-5 A UA RBC (test code = RBCU) 3-5 #/HPF 0-5 UA EPITHELIAL CELLS (test FEW per HPF FEW code = EPIU) UA BACTERIA (test code = FEW #/HPF NONE BACU) UA MUCUS (test code = MANY #/LPF FEW A MUCU) Urine Source? Clean CatchDRUGS OF ABUSE SCREEN [id number] 08:22:00 Test Item Value Reference Range Interpretation Comments URN COCAINE (test code = COCAURN) <300 ng/mL URN CANNABINOIDS (test code = <50 ng/mL CANNABURN) URN AMPHETAMINE (test code = AMPHETURN) <1000 ng/mL URN BARBITURATE (test code = BARBITURN) <200 ng/mL URN BENZODIAZEPINE (test code = <200 ng/mL BENZOURN) URN OPIATES (test code = OPIATURN) <300 ng/mL URN PHENCYCLIDINE (PCP) (test code = <25 ng/mL PHENCURN) URN METHADONE (test code = METHAURN) <300 ng/mL Urine Source? Clean CatchBASIC METABOLIC [id number] 00:08:00 Test Item Value Reference Range Interpretation Comments SODIUM (test code = 140 mmol/L 136-145 N NA) POTASSIUM (test code 3.5 mmol/L 3.5-5.1 N = K) CHLORIDE (test code = 103.0 mmol/L 98-107 N CL) CARBON DIOXIDE (test 26.0 mmol/L 21-32 N code = CO2) ANION GAP (test code 14.5 10-20 N = GAP) GLUCOSE (test code = 98 mg/dL 74-106 N GLU) BLOOD UREA NITROGEN 14 mg/dL 7-18 N (test code = BUN) GLOMERULAR FILTRATION > 60 mL/min >=60 Estima mikey GFR by RATE (test code = using Lucian fied MDRD GFR) formula.Chronic kidney disease is defined as [facility] er kidney damageor GFR <60 mL/min/1.73 m2 for >3 months. CREATININE (test code 1.10 mg/dL 0.7-1.3 N = CREAT) BUN/CREATININE RATIO 12.7 10-20 N (test code = BUN/CREA) CALCIUM (test code = 9.4 mg/dL 8.5-10.1 N CA) HEPATIC FUNCTION [id number] 00:08:00 Test Item Value Reference Range Interpretation Comments TOTAL PROTEIN (test 7.7 gram/dL 6.4-8.2 N code = PROT) ALBUMIN (test code = 4.3 g/dL 3.4-5.0 N ALB) GLOBULIN (test code = 3.4 gram/dL 2.7-4.2 N GLOB) ALBUMIN/GLOBULIN RATIO 1.3 0.75-1.50 N (test code = A/G) BILIRUBIN TOTAL (test 1.40 mg/dL 0.0-1.0 H code = BILT) BILIRUBIN DIRECT (test 0.36 mg/dL 0.0-0.20 H code = BILD) SGOT/AST (test code = 150 IUnit/L 15-37 H AST) SGPT/ALT (test code = 57 IUnit/L 12-78 N ALT) ALKALINE PHOSPHATASE 77 IUnit/L 45-117 N Note change in TOTAL (test code = reference range due ALKP) to change in reagent. [id number] 00:08:00 Test Item Value Reference Range Interpretation Comments ACETAMINOPHEN (test < 10 mcg/mL 10-30 L A RANGE OF 10-30 code = ACET) mcg/mL IS A THERAPEUTIC RAN GE. TOXIC CONCENTRATIONS: >150 mcg/mL AT 4 DANAY RS AFTER INGESTION >= 50 mcg/mL AT 12 HOURS AFTER INGESTION [id number] 00:08:00 Test Item Value Reference Range Interpretation Comments SALICYLATE (test code = BIGG) < 1.7 mg/dL 2.8-20.0 L [id number] 00:08:00 Test Item Value Reference Range Interpretation Comments ALCOHOL (test code = 4 mg/dL 0.0-3.0 H ------- INTERPRET ALC) JOSEFINA DATA NOTE: POSITIVE SCREEN ING RESULTS SHOULD BE CONSI DERED PRESUMPTIVE.WHE N COLLECTED FOR MEDICAL PUR POSES ONLY. SPECIMEN WILL N OTBE COLLECTED BY NELIA OF CUSTODY.IF A CO NFIRMATION OF POSITIVE RES ULTS IS DESIRED, ACONFI RMATION TEST MUST BE RE QUESTED BY THE PHYSICIAN Nayla T ANADDITIONAL HENNY ARGE TO THE PATIENT. BASIC METABOLIC [id number] 23:51:00 Test Item Value Reference Range Interpretation Comments SODIUM (test code = NA) 140 mmol/L 136-145 N POTASSIUM (test code = K) 3.5 mmol/L 3.5-5.1 N CHLORIDE (test code = CL) 103.0 mmol/L 98-107 N CARBON DIOXIDE (test code = CO2) mmol/L 21-32 ANION GAP (test code = GAP) 10-20 GLUCOSE (test code = GLU) mg/dL 74-106 BLOOD UREA NITROGEN (test code = mg/dL 7-18 BUN) GLOMERULAR FILTRATION RATE (test mL/min >=60 code = GFR) CREATININE (test code = CREAT) mg/dL 0.7-1.3 BUN/CREATININE RATIO (test code 10-20 = BUN/CREA) CALCIUM (test code = CA) mg/dL 8.5-10.1 HEPATIC FUNCTION [id number] 23:51:00 Test Item Value Reference Range Interpretation Comments TOTAL PROTEIN (test code = PROT) gram/dL 6.4-8.2 ALBUMIN (test code = ALB) g/dL 3.4-5.0 GLOBULIN (test code = GLOB) gram/dL 2.7-4.2 ALBUMIN/GLOBULIN RATIO (test code = 0.75-1.50 A/G) BILIRUBIN TOTAL (test code = BILT) mg/dL 0.0-1.0 BILIRUBIN DIRECT (test code = BILD) mg/dL 0.0-0.20 SGOT/AST (test code = AST) IUnit/L 15-37 SGPT/ALT (test code = ALT) IUnit/L 12-78 ALKALINE PHOSPHATASE TOTAL (test IUnit/L 45-117 code = ALKP) [id number] 23:51:00 Test Item Value Reference Range Interpretation Comments ACETAMINOPHEN (test code = ACET) mcg/mL 10-30 [id number] 23:51:00 Test Item Value Reference Range Interpretation Comments SALICYLATE (test code = BIGG) mg/dL 2.8-20.0 [id number] 23:51:00 Test Item Value Reference Range Interpretation Comments ALCOHOL (test code = ALC) mg/dL 0-3 CBC W/O [id number] 23:42:00 Test Item Value Reference Range Interpretation Comments WHITE BLOOD CELL (test code = 7.4 K/mm3 4.5-12.5 N WBC) RED BLOOD CELL (test code = 4.20 mill/mm3 4.0-5.8 N RBC) HEMOGLOBIN (test code = HGB) 12.3 gram/dL 13.0-17.5 L HEMATOCRIT (test code = HCT) 37.5 % 42.0-52.0 L MEAN CELL VOLUME (test code = 89.3 fL 80-98 N MCV) MEAN CELL HGB (test code = MCH) 29.3 picogram 27.0-33.0 N MEAN CELL HGB CONCETRATION 32.8 gram/dL 33.0-36.0 L (test code = MCHC) RED CELL DISTRIBUTION WIDTH 11.6 % 11.6-16.2 N (test code = RDW) PLATELET COUNT (test code = 198 K/mm3 150-450 N PLT) MEAN PLATELET VOLUME (test code 11.5 fL 6.7-11.0 H = MPV) URINALYSIS [id number] 13:10:00 Test Item Value Reference Range Interpretation Comments UA COLOR (test code = Light-Yellow YELLOW COLU) UA APPEARANCE (test code CLEAR CLEAR = APPU) UA GLUCOSE DIPSTICK (test NEGATIVE mg/dL NEGATIVE code = DGLUU) UA BILIRUBIN DIPSTICK NEGATIVE mg/dL NEGATIVE (test code = BILU) UA KETONE DIPSTICK (test TRACE mg/dL NEGATIVE A code = KETU) UA SPECIFIC GRAVITY (test 1.014 1.001-1.035 code = SGU) UA BLOOD DIPSTICK (test Negative mg/dL NEGATIVE code = MARGIE) UA PH DIPSTICK (test code 6.5 5.0-8.0 = TAMEKA) UA PROTEIN DIPSTICK (test 20 (Trace) mg/dL NEGATIVE A code = PROU) UA UROBILINIOGEN DIPSTICK Normal mg/dL NEGATIVE (test code = URO) UA NITRITE DIPSTICK (test NEGATIVE NEGATIVE code = EDUARDO) UA LEUKOCYTE ESTERASE W NEGATIVE Geneva/uL NEGATIVE REFLEX (test code = LEUUR) UA WBC (test code = WBCU) 0-5 per HPF 0-5 UA RBC (test code = RBCU) 0-3 #/HPF 0-5 UA EPITHELIAL CELLS (test Few (2-5/hpf) per FEW code = EPIU) HPF UA BACTERIA (test code = FEW #/HPF NONE BACU) Urine Source? Clean CatchDRUGS OF ABUSE SCREEN [id number] 13:10:00 Test Item Value Reference Range Interpretation Comments URN COCAINE (test POSITIVE <300 ng/mL A This test provides only a code = COCAURN) preliminary test result. A morespecific alternate chemical method must be used in order t oobtain a confirmed sherry tical result. Gas chromatography/ mass spectrometry (G C/MS) is thepreferred co nfirmatory method. Other c hemical confirmationmet hods are available. Clin ical consideration a nd professional ju dgment should be appli ed to any drug of abusete st result, particularly wh en preliminary pos itive resultsare used.Unconfirme d screening resul ts must not be used fornon-medical purposes (e.g., employme nt testing, legalt esting). URN CANNABINOIDS POSITIVE <50 ng/mL A This test p rovides only a (test code = preliminary sapphire t result. CANNABURN) A morespecific alternate chemical method must be used in order t oobtain a confirmed sherry tical result. Gas chromatography/ mass spectrometry (G C/MS) is thepreferred co nfirmatory method. Other c hemical confirmationmet hods are available. Clin ical consideration a nd professional ju dgment should be appli ed to any drug of abusete st result, particularly wh en preliminary pos itive resultsare used.Unconfirme d screening resul ts must not be used fornon-medical purposes (e.g., employme nt testing, legalt esting). URN AMPHETAMINE (test POSITIVE <1000 ng/mL A This t est provides only a code = AMPHETURN) preliminar y test result. A morespecific alternate chemical method must be used in order t oobtain a confirmed sherry tical result. Gas chromatography/ mass spectrometry (G C/MS) is thepreferred co nfirmatory method. Other c hemical confirmationmet hods are available. Clin ical consideration a nd professional ju dgment should be appli ed to any drug of abusete st result, particularly wh en preliminary pos itive resultsare used.Unconfirme d screening resul ts must not be used fornon-medical purposes (e.g., employme nt testing, legalt esting). URN BARBITURATE (test NEGATIVE <200 ng/mL code = BARBITURN) URN BENZODIAZEPINE POSITIVE <200 ng/mL A This test provides only a (test code = preliminary sapphire t result. BENZOURN) A morespecific alternate chemical method must be used in order t oobtain a confirmed sherry tical result. Gas chromatography/ mass spectrometry (G C/MS) is thepreferred co nfirmatory method. Other c hemical confirmationmet hods are available. Clin ical consideration a nd professional ju dgment should be appli ed to any drug of abusete st result, particularly wh en preliminary pos itive resultsare used.Unconfirme d screening resul ts must not be used fornon-medical purposes (e.g., employme nt testing, legalt esting). URN OPIATES (test NEGATIVE <300 ng/mL code = OPIATURN) URN PHENCYCLIDINE NEGATIVE <25 ng/mL (PCP) (test code = PHENCURN) URN METHADONE (test NEGATIVE <300 ng/mL code = METHAURN) Urine Source? Clean CatchURINALYSIS [id number] 12:41:00 Test Item Value Reference Range Interpretation Comments UA COLOR (test code = Light-Yellow YELLOW COLU) UA APPEARANCE (test code CLEAR CLEAR = APPU) UA GLUCOSE DIPSTICK (test NEGATIVE mg/dL NEGATIVE code = DGLUU) UA BILIRUBIN DIPSTICK NEGATIVE mg/dL NEGATIVE (test code = BILU) UA KETONE DIPSTICK (test TRACE mg/dL NEGATIVE A code = KETU) UA SPECIFIC GRAVITY (test 1.014 1.001-1.035 code = SGU) UA BLOOD DIPSTICK (test Negative mg/dL NEGATIVE code = MARGIE) UA PH DIPSTICK (test code 6.5 5.0-8.0 = TAMEKA) UA PROTEIN DIPSTICK (test 20 (Trace) mg/dL NEGATIVE A code = PROU) UA UROBILINIOGEN DIPSTICK Normal mg/dL NEGATIVE (test code = URO) UA NITRITE DIPSTICK (test NEGATIVE NEGATIVE code = EDUARDO) UA LEUKOCYTE ESTERASE W NEGATIVE [place]/uL NEGATIVE REFLEX (test code = LEUUR) UA WBC (test code = WBCU) 0-5 per HPF 0-5 UA RBC (test code = RBCU) 0-3 #/HPF 0-5 UA EPITHELIAL CELLS (test Few (2-5/hpf) per FEW code = EPIU) HPF UA BACTERIA (test code = FEW #/HPF NONE BACU) Urine Source? Clean CatchDRUGS OF ABUSE SCREEN [id number] 12:41:00 Test Item Value Reference Range Interpretation Comments URN COCAINE (test code = COCAURN) <300 ng/mL URN CANNABINOIDS (test code = <50 ng/mL CANNABURN) URN AMPHETAMINE (test code = AMPHETURN) <1000 ng/mL URN BARBITURATE (test code = BARBITURN) <200 ng/mL URN BENZODIAZEPINE (test code = <200 ng/mL BENZOURN) URN OPIATES (test code = OPIATURN) <300 ng/mL URN PHENCYCLIDINE (PCP) (test code = <25 ng/mL PHENCURN) URN METHADONE (test code = METHAURN) <300 ng/mL Urine Source? Clean CatchBASIC METABOLIC [id number] 10:19:00 Test Item Value Reference Range Interpretation Comments SODIUM (test code = 139 mmol/L 136-145 N NA) POTASSIUM (test code 4.0 mmol/L 3.5-5.1 N = K) CHLORIDE (test code = 102.0 mmol/L 98-107 N CL) CARBON DIOXIDE (test 29.0 mmol/L 21-32 N code = CO2) ANION GAP (test code 12.0 10-20 N = GAP) GLUCOSE (test code = 103 mg/dL 74-106 N GLU) BLOOD UREA NITROGEN 11 mg/dL 7-18 N (test code = BUN) GLOMERULAR FILTRATION > 60 mL/min >=60 Estima mikey GFR by RATE (test code = using Lucian fied MDRD GFR) formula.Chronic kidney disease is defined as [facility] er kidney damageor GFR <60 mL/min/1.73 m2 for >3 months. CREATININE (test code 1.10 mg/dL 0.7-1.3 N = CREAT) BUN/CREATININE RATIO 10.0 10-20 N (test code = BUN/CREA) CALCIUM (test code = 9.9 mg/dL 8.5-10.1 N CA) HEPATIC FUNCTION [id number] 10:19:00 Test Item Value Reference Range Interpretation Comments TOTAL PROTEIN (test 8.6 gram/dL 6.4-8.2 H code = PROT) ALBUMIN (test code = 4.8 g/dL 3.4-5.0 N ALB) GLOBULIN (test code = 3.8 gram/dL 2.7-4.2 N GLOB) ALBUMIN/GLOBULIN RATIO 1.3 0.75-1.50 N (test code = A/G) BILIRUBIN TOTAL (test 0.70 mg/dL 0.0-1.0 N code = BILT) BILIRUBIN DIRECT (test 0.23 mg/dL 0.0-0.20 H code = BILD) SGOT/AST (test code = 25 IUnit/L 15-37 N AST) SGPT/ALT (test code = 18 IUnit/L 12-78 N ALT) ALKALINE PHOSPHATASE 95 IUnit/L 45-117 N Note change in TOTAL (test code = reference range due ALKP) to change in reagent. [id number] 10:19:00 Test Item Value Reference Range Interpretation Comments ACETAMINOPHEN (test < 10 mcg/mL 10-30 L A RANGE OF 10-30 code = ACET) mcg/mL IS A THERAPEUTIC RAN GE. TOXIC CONCENTRATIONS: >150 mcg/mL AT 4 DANAY RS AFTER INGESTION >= 50 mcg/mL AT 12 HOURS AFTER INGESTION [id number] 10:19:00 Test Item Value Reference Range Interpretation Comments SALICYLATE (test code = BIGG) < 1.7 mg/dL 2.8-20.0 L [id number] 10:19:00 Test Item Value Reference Range Interpretation Comments ALCOHOL (test code < 3 mg/dL 0.0-3.0 N --------- --------INTERPRE = ALC) TIVE DATA NOTE: POSITIVE SCREEN ING RESULTS SHOULD BE CONSIDERED PRESUMPTIVE.WHE N COLLECTED FOR M EDICAL PURPOSES ONLY. SPECIMEN WILL NOTBE TESSA ECTED BY CHAIN OF CUSTOD Y.IF A CONFIRMATION OF POSITIVE RESULTS IS DELORIS RED, ACONFIRMATION T EST MUST BE REQUESTED BY THE PHYSICIAN AT AN ADDITIONAL CHARGE TO THE P ATIENT. BASIC METABOLIC [id number] 10:05:00 Test Item Value Reference Range Interpretation Comments SODIUM (test code = NA) 139 mmol/L 136-145 N POTASSIUM (test code = K) 4.0 mmol/L 3.5-5.1 N CHLORIDE (test code = CL) 102.0 mmol/L 98-107 N CARBON DIOXIDE (test code = CO2) mmol/L 21-32 ANION GAP (test code = GAP) 10-20 GLUCOSE (test code = GLU) mg/dL 74-106 BLOOD UREA NITROGEN (test code = mg/dL 7-18 BUN) GLOMERULAR FILTRATION RATE (test mL/min >=60 code = GFR) CREATININE (test code = CREAT) mg/dL 0.7-1.3 BUN/CREATININE RATIO (test code 10-20 = BUN/CREA) CALCIUM (test code = CA) mg/dL 8.5-10.1 HEPATIC FUNCTION [id number] 10:05:00 Test Item Value Reference Range Interpretation Comments TOTAL PROTEIN (test code = PROT) gram/dL 6.4-8.2 ALBUMIN (test code = ALB) g/dL 3.4-5.0 GLOBULIN (test code = GLOB) gram/dL 2.7-4.2 ALBUMIN/GLOBULIN RATIO (test code = 0.75-1.50 A/G) BILIRUBIN TOTAL (test code = BILT) mg/dL 0.0-1.0 BILIRUBIN DIRECT (test code = BILD) mg/dL 0.0-0.20 SGOT/AST (test code = AST) IUnit/L 15-37 SGPT/ALT (test code = ALT) IUnit/L 12-78 ALKALINE PHOSPHATASE TOTAL (test IUnit/L 45-117 code = ALKP) [id number] 10:05:00 Test Item Value Reference Range Interpretation Comments ACETAMINOPHEN (test code = ACET) mcg/mL 10-30 [id number] 10:05:00 Test Item Value Reference Range Interpretation Comments SALICYLATE (test code = BIGG) mg/dL 2.8-20.0 [id number] 10:05:00 Test Item Value Reference Range Interpretation Comments ALCOHOL (test code = ALC) mg/dL 0-3 CBC W/O [id number] 09:57:00 Test Item Value Reference Range Interpretation Comments WHITE BLOOD CELL (test code = 7.6 K/mm3 4.5-12.5 N WBC) RED BLOOD CELL (test code = 5.14 mill/mm3 4.0-5.8 N RBC) HEMOGLOBIN (test code = HGB) 15.5 gram/dL 13.0-17.5 N HEMATOCRIT (test code = HCT) 46.8 % 42.0-52.0 N MEAN CELL VOLUME (test code = 91.1 fL 80-98 N MCV) MEAN CELL HGB (test code = MCH) 30.2 picogram 27.0-33.0 N MEAN CELL HGB CONCETRATION 33.1 gram/dL 33.0-36.0 N (test code = MCHC) RED CELL DISTRIBUTION WIDTH 11.8 % 11.6-16.2 N (test code = RDW) PLATELET COUNT (test code = 262 K/mm3 150-450 N PLT) MEAN PLATELET VOLUME (test code 11.6 fL 6.7-11.0 H = MPV) COMPREHENSIVE METABOLIC [id number] 13:45:00 Test Item Value Reference Range Interpretation Comments SODIUM (test code = 141 mmol/L 136-145 N NA) POTASSIUM (test code = 3.5 mmol/L 3.5-5.1 N K) CHLORIDE (test code = 106.0 mmol/L 98-107 N CL) CARBON DIOXIDE (test 26.0 mmol/L 21-32 N code = CO2) ANION GAP (test code = 12.5 10-20 N GAP) GLUCOSE (test code = 88 mg/dL 74-106 N GLU) BLOOD UREA NITROGEN 14 mg/dL 7-18 N (test code = BUN) GLOMERULAR FILTRATION > 60 mL/min >=60 Estima mikey GFR by RATE (test code = GFR) using Modified MDRD formula.Chronic kidney disease is defined as [facility] er kidney damageor GFR <60 mL/min/1.73 m2 for >3 months. CREATININE (test code 0.90 mg/dL 0.7-1.3 N = CREAT) BUN/CREATININE RATIO 15.2 10-20 N (test code = BUN/CREA) TOTAL PROTEIN (test 7.0 gram/dL 6.4-8.2 N code = PROT) ALBUMIN (test code = 3.7 g/dL 3.4-5.0 N ALB) GLOBULIN (test code = 3.3 gram/dL 2.7-4.2 N GLOB) ALBUMIN/GLOBULIN RATIO 1.1 0.75-1.50 N (test code = A/G) CALCIUM (test code = 8.7 mg/dL 8.5-10.1 N CA) BILIRUBIN TOTAL (test 1.20 mg/dL 0.0-1.0 H code = BILT) SGOT/AST (test code = 858 IUnit/L 15-37 H AST) SGPT/ALT (test code = 111 IUnit/L 12-78 H ALT) ALKALINE PHOSPHATASE 65 IUnit/L 45-117 N Note change in TOTAL (test code = reference range due ALKP) to change in reagent. CREATINE KINASE (CK)2020-07-05 13:45:00 Test Item Value Reference Range Interpretation Comments CREATINE KINASE (CK) (test code 24878 IUnit/L 26-208 H = CK) COMPREHENSIVE METABOLIC [id number] 12:37:00 Test Item Value Reference Range Interpretation Comments SODIUM (test code = 141 mmol/L 136-145 N NA) POTASSIUM (test code = 3.5 mmol/L 3.5-5.1 N K) CHLORIDE (test code = 106.0 mmol/L 98-107 N CL) CARBON DIOXIDE (test 26.0 mmol/L 21-32 N code = CO2) ANION GAP (test code = 12.5 10-20 N GAP) GLUCOSE (test code = 88 mg/dL 74-106 N GLU) BLOOD UREA NITROGEN 14 mg/dL 7-18 N (test code = BUN) GLOMERULAR FILTRATION > 60 mL/min >=60 Estima mikey GFR by RATE (test code = GFR) using Modified MDRD formula.Chronic kidney disease is defined as e[facility] er kidney damageor GFR <60 mL/min/1.73 m2 for >3 months. CREATININE (test code 0.90 mg/dL 0.7-1.3 N = CREAT) BUN/CREATININE RATIO 15.2 10-20 N (test code = BUN/CREA) TOTAL PROTEIN (test 7.0 gram/dL 6.4-8.2 N code = PROT) ALBUMIN (test code = 3.7 g/dL 3.4-5.0 N ALB) GLOBULIN (test code = 3.3 gram/dL 2.7-4.2 N GLOB) ALBUMIN/GLOBULIN RATIO 1.1 0.75-1.50 N (test code = A/G) CALCIUM (test code = 8.7 mg/dL 8.5-10.1 N CA) BILIRUBIN TOTAL (test 1.20 mg/dL 0.0-1.0 H code = BILT) SGOT/AST (test code = 858 IUnit/L 15-37 H AST) SGPT/ALT (test code = 111 IUnit/L 12-78 H ALT) ALKALINE PHOSPHATASE 65 IUnit/L 45-117 N Note change in TOTAL (test code = reference range due ALKP) to change in reagent. CREATINE KINASE (CK)2020-07-05 12:37:00 Test Item Value Reference Range Interpretation Comments CREATINE KINASE (CK) (test code = IUnit/L 26-208 CK) COMPREHENSIVE METABOLIC [id number] 12:04:00 Test Item Value Reference Range Interpretation Comments SODIUM (test code = NA) 141 mmol/L 136-145 N POTASSIUM (test code = K) 3.5 mmol/L 3.5-5.1 N CHLORIDE (test code = CL) 106.0 mmol/L 98-107 N CARBON DIOXIDE (test code = CO2) mmol/L 21-32 ANION GAP (test code = GAP) 10-20 GLUCOSE (test code = GLU) mg/dL 74-106 BLOOD UREA NITROGEN (test code = mg/dL 7-18 BUN) GLOMERULAR FILTRATION RATE (test mL/min >=60 code = GFR) CREATININE (test code = CREAT) mg/dL 0.7-1.3 BUN/CREATININE RATIO (test code 10-20 = BUN/CREA) TOTAL PROTEIN (test code = PROT) gram/dL 6.4-8.2 ALBUMIN (test code = ALB) g/dL 3.4-5.0 GLOBULIN (test code = GLOB) gram/dL 2.7-4.2 ALBUMIN/GLOBULIN RATIO (test 0.75-1.50 code = A/G) CALCIUM (test code = CA) mg/dL 8.5-10.1 BILIRUBIN TOTAL (test code = mg/dL 0.0-1.0 BILT) SGOT/AST (test code = AST) IUnit/L 15-37 SGPT/ALT (test code = ALT) IUnit/L 12-78 ALKALINE PHOSPHATASE TOTAL (test IUnit/L 45-117 code = ALKP) CREATINE KINASE (CK)2020-07-05 12:04:00 Test Item Value Reference Range Interpretation Comments CREATINE KINASE (CK) (test code = IUnit/L 26-208 CK) CBC W/AUTO [id number] 11:48:00 Test Item Value Reference Range Interpretation Comments WHITE BLOOD CELL (test code = WBC) K/mm3 4.5-12.5 RED BLOOD CELL (test code = RBC) mill/mm3 4.0-5.8 HEMOGLOBIN (test code = HGB) gram/dL 13.0-17.5 HEMATOCRIT (test code = HCT) % 42.0-52.0 MEAN CELL VOLUME (test code = MCV) fL 80-98 MEAN CELL HGB (test code = MCH) picogram 27.0-33.0 MEAN CELL HGB CONCETRATION (test gram/dL 33.0-36.0 code = MCHC) RED CELL DISTRIBUTION WIDTH (test % 11.6-16.2 code = RDW) RED CELL DISTRIBUTION WIDTH SD fL 37.0-51.0 (test code = RDW-SD) PLATELET COUNT (test code = PLT) 181 K/mm3 150-450 N MEAN PLATELET VOLUME (test code = fL 6.7-11.0 MPV) NEUTROPHIL % (test code = NT%) % 39.0-69.0 IMMATURE GRANULOCYTE % (test code = % 0.0-5.0 IG%) LYMPHOCYTE % (test code = LY%) % 25.0-55.0 MONOCYTE % (test code = MO%) % 0.0-10.0 EOSINOPHIL % (test code = EO%) % 0.0-5.0 BASOPHIL % (test code = BA%) % 0.0-1.0 NEUTROPHIL # (test code = NT#) K/mm3 1.8-7.7 LYMPHOCYTE # (test code = LY#) K/mm3 1.0-5.0 MONOCYTE # (test code = MO#) K/mm3 0-0.8 EOSINOPHIL # (test code = EO#) K/mm3 0.0-0.5 BASOPHIL # (test code = BA#) K/mm3 0.0-0.2 CBC W/AUTO [id number] 11:48:00 Test Item Value Reference Range Interpretation Comments WHITE BLOOD CELL (test code = 8.7 K/mm3 4.5-12.5 N WBC) RED BLOOD CELL (test code = 4.27 mill/mm3 4.0-5.8 N RBC) HEMOGLOBIN (test code = HGB) 12.8 gram/dL 13.0-17.5 L HEMATOCRIT (test code = HCT) 37.9 % 42.0-52.0 L MEAN CELL VOLUME (test code = 88.8 fL 80-98 N MCV) MEAN CELL HGB (test code = MCH) 30.0 picogram 27.0-33.0 N MEAN CELL HGB CONCETRATION 33.8 gram/dL 33.0-36.0 N (test code = MCHC) RED CELL DISTRIBUTION WIDTH 11.9 % 11.6-16.2 N (test code = RDW) RED CELL DISTRIBUTION WIDTH SD 38.0 fL 37.0-51.0 N (test code = RDW-SD) PLATELET COUNT (test code = 181 K/mm3 150-450 N PLT) MEAN PLATELET VOLUME (test code 11.0 fL 6.7-11.0 N = MPV) NEUTROPHIL % (test code = NT%) 71.0 % 39.0-69.0 H IMMATURE GRANULOCYTE % (test 0.2 % 0.0-5.0 N code = IG%) LYMPHOCYTE % (test code = LY%) 17.0 % 25.0-55.0 L MONOCYTE % (test code = MO%) 10.0 % 0.0-10.0 N EOSINOPHIL % (test code = EO%) 1.3 % 0.0-5.0 N BASOPHIL % (test code = BA%) 0.5 % 0.0-1.0 N NUCLEATED RBC % (test code = 0.0 % 0-0 N NRBC%) NEUTROPHIL # (test code = NT#) 6.17 K/mm3 1.8-7.7 N IMMATURE GRANULOCYTE # (test 0.02 x10 3/uL 0-0.03 N code = IG#) LYMPHOCYTE # (test code = LY#) 1.48 K/mm3 1.0-5.0 N MONOCYTE # (test code = MO#) 0.87 K/mm3 0-0.8 H EOSINOPHIL # (test code = EO#) 0.11 K/mm3 0.0-0.5 N BASOPHIL # (test code = BA#) 0.04 K/mm3 0.0-0.2 N NUCLEATED RBC # (test code = 0.00 K/mm3 0.0-0.1 N NRBC#) URINALYSIS [id number] 10:57:00 Test Item Value Reference Range Interpretation Comments UA COLOR (test code = YELLOW YELLOW COLU) UA APPEARANCE (test code CLEAR CLEAR = APPU) UA GLUCOSE DIPSTICK (test NEGATIVE mg/dL NEGATIVE code = DGLUU) UA BILIRUBIN DIPSTICK 1+ (Small 0.5-1.0) NEGATIVE (test code = BILU) UA KETONE DIPSTICK (test 1+ mg/dL NEGATIVE code = KETU) UA SPECIFIC GRAVITY (test >=1.030 1.001-1.035 code = SGU) UA BLOOD DIPSTICK (test 3+ (Large) NEGATIVE A code = MARGIE) UA PH DIPSTICK (test code 6.0 5.0-8.0 = TAMEKA) UA PROTEIN DIPSTICK (test 100 (2+) mg/dL Neg-15 code = PROU) UA UROBILINIOGEN DIPSTICK 0.2 mg/dL 0.0-0.2 (test code = URO) UA NITRITE DIPSTICK (test NEGATIVE NEGATIVE code = EDUARDO) UA LEUKOCYTE ESTERASE W NEGATIVE NEGATIVE REFLEX (test code = LEUUR) UA WBC (test code = WBCU) 3-5 per HPF 0-5 UA RBC (test code = RBCU) 0-2 per HPF 0-5 UA EPITHELIAL CELLS (test Few (2-5/hpf) per Few code = EPIU) HPF UA BACTERIA (test code = TRACE per HPF NONE BACU) Urine Source? Clean CatchDRUGS OF ABUSE SCREEN [id number] 10:57:00 Test Item Value Reference Range Interpretation Comments URN COCAINE (test POSITIVE <300 ng/mL A This test provides only a code = COCAURN) preliminary test result. A morespecific alternate chemical method must be used in order t oobtain a confirmed sherry tical result. Gas chromatography/ mass spectrometry (G C/MS) is thepreferred co nfirmatory method. Other c hemical confirmationmet hods are available. Clin ical consideration a nd professional ju dgment should be appli ed to any drug of abusete st result, particularly wh en preliminary pos itive resultsare used.Unconfirme d screening resul ts must not be used fornon-medical purposes (e.g., employme nt testing, legalt esting). URN CANNABINOIDS POSITIVE <50 ng/mL A This test p rovides only a (test code = preliminary sapphire t result. CANNABURN) A morespecific alternate chemical method must be used in order t oobtain a confirmed sherry tical result. Gas chromatography/ mass spectrometry (G C/MS) is thepreferred co nfirmatory method. Other c hemical confirmationmet hods are available. Clin ical consideration a nd professional ju dgment should be appli ed to any drug of abusete st result, particularly wh en preliminary pos itive resultsare used.Unconfirme d screening resul ts must not be used fornon-medical purposes (e.g., employme nt testing, legalt esting). URN AMPHETAMINE (test POSITIVE <1000 ng/mL A This t est provides only a code = AMPHETURN) preliminar y test result. A morespecific alternate chemical method must be used in order t oobtain a confirmed sherry tical result. Gas chromatography/ mass spectrometry (G C/MS) is thepreferred co nfirmatory method. Other c hemical confirmationmet hods are available. Clin ical consideration a nd professional ju dgment should be appli ed to any drug of abusete st result, particularly wh en preliminary pos itive resultsare used.Unconfirme d screening resul ts must not be used fornon-medical purposes (e.g., employme nt testing, legalt esting). URN BARBITURATE (test NEGATIVE <200 ng/mL code = BARBITURN) URN BENZODIAZEPINE POSITIVE <200 ng/mL A This test provides only a (test code = preliminary sapphire t result. BENZOURN) A morespecific alternate chemical method must be used in order t oobtain a confirmed sherry tical result. Gas chromatography/ mass spectrometry (G C/MS) is thepreferred co nfirmatory method. Other c hemical confirmationmet hods are available. Clin ical consideration a nd professional ju dgment should be appli ed to any drug of abusete st result, particularly wh en preliminary pos itive resultsare used.Unconfirme d screening resul ts must not be used fornon-medical purposes (e.g., employme nt testing, legalt esting). URN OPIATES (test POSITIVE <300 ng/mL A This test provides only a code = OPIATURN) preliminary test result. A morespecific alternate chemical method must be used in order t oobtain a confirmed sherry tical result. Gas chromatography/ mass spectrometry (G C/MS) is thepreferred co nfirmatory method. Other c hemical confirmationmet hods are available. Clin ical consideration a nd professional ju dgment should be appli ed to any drug of abusete st result, particularly wh en preliminary pos itive resultsare used.Unconfirme d screening resul ts must not be used fornon-medical purposes (e.g., employme nt testing, legalt esting). URN PHENCYCLIDINE NEGATIVE <25 ng/mL (PCP) (test code = PHENCURN) URN METHADONE (test NEGATIVE <300 ng/mL code = METHAURN) Urine Source? Clean CatchURINALYSIS [id number] 10:41:00 Test Item Value Reference Range Interpretation Comments UA COLOR (test code = YELLOW YELLOW COLU) UA APPEARANCE (test code CLEAR CLEAR = APPU) UA GLUCOSE DIPSTICK (test NEGATIVE mg/dL NEGATIVE code = DGLUU) UA BILIRUBIN DIPSTICK 1+ (Small 0.5-1.0) NEGATIVE (test code = BILU) UA KETONE DIPSTICK (test 1+ mg/dL NEGATIVE code = KETU) UA SPECIFIC GRAVITY (test >=1.030 1.001-1.035 code = SGU) UA BLOOD DIPSTICK (test 3+ (Large) NEGATIVE A code = MARGIE) UA PH DIPSTICK (test code 6.0 5.0-8.0 = TAMEKA) UA PROTEIN DIPSTICK (test 100 (2+) mg/dL Neg-15 code = PROU) UA UROBILINIOGEN DIPSTICK 0.2 mg/dL 0.0-0.2 (test code = URO) UA NITRITE DIPSTICK (test NEGATIVE NEGATIVE code = EDUARDO) UA LEUKOCYTE ESTERASE W NEGATIVE NEGATIVE REFLEX (test code = LEUUR) UA WBC (test code = WBCU) 3-5 per HPF 0-5 UA RBC (test code = RBCU) 0-2 per HPF 0-5 UA EPITHELIAL CELLS (test Few (2-5/hpf) per Few code = EPIU) HPF UA BACTERIA (test code = TRACE per HPF NONE BACU) Urine Source? Clean CatchDRUGS OF ABUSE SCREEN [id number] 10:41:00 Test Item Value Reference Range Interpretation Comments URN COCAINE (test code = COCAURN) <300 ng/mL URN CANNABINOIDS (test code = <50 ng/mL CANNABURN) URN AMPHETAMINE (test code = AMPHETURN) <1000 ng/mL URN BARBITURATE (test code = BARBITURN) <200 ng/mL URN BENZODIAZEPINE (test code = <200 ng/mL BENZOURN) URN OPIATES (test code = OPIATURN) <300 ng/mL URN PHENCYCLIDINE (PCP) (test code = <25 ng/mL PHENCURN) URN METHADONE (test code = METHAURN) <300 ng/mL Urine Source? Clean CatchURINALYSIS [id number] 10:32:00 Test Item Value Reference Range Interpretation Comments UA COLOR (test code = YELLOW YELLOW COLU) UA APPEARANCE (test code = CLEAR CLEAR APPU) UA GLUCOSE DIPSTICK (test NEGATIVE mg/dL NEGATIVE code = DGLUU) UA BILIRUBIN DIPSTICK 1+ (Small 0.5-1.0) NEGATIVE (test code = BILU) UA KETONE DIPSTICK (test 1+ mg/dL NEGATIVE code = KETU) UA SPECIFIC GRAVITY (test >=1.030 1.001-1.035 code = SGU) UA BLOOD DIPSTICK (test 3+ (Large) NEGATIVE A code = MARGIE) UA PH DIPSTICK (test code 6.0 5.0-8.0 = TAMEKA) UA PROTEIN DIPSTICK (test 100 (2+) mg/dL Neg-15 code = PROU) UA UROBILINIOGEN DIPSTICK 0.2 mg/dL 0.0-0.2 (test code = URO) UA NITRITE DIPSTICK (test NEGATIVE NEGATIVE code = EDUARDO) UA LEUKOCYTE ESTERASE W NEGATIVE NEGATIVE REFLEX (test code = LEUUR) UA WBC (test code = WBCU) per HPF 0-5 UA RBC (test code = RBCU) per HPF 0-5 UA EPITHELIAL CELLS (test per HPF Few code = EPIU) UA BACTERIA (test code = per HPF NONE BACU) Urine Source? Clean CatchDRUGS OF ABUSE SCREEN [id number] 10:32:00 Test Item Value Reference Range Interpretation Comments URN COCAINE (test code = COCAURN) <300 ng/mL URN CANNABINOIDS (test code = <50 ng/mL CANNABURN) URN AMPHETAMINE (test code = AMPHETURN) <1000 ng/mL URN BARBITURATE (test code = BARBITURN) <200 ng/mL URN BENZODIAZEPINE (test code = <200 ng/mL BENZOURN) URN OPIATES (test code = OPIATURN) <300 ng/mL URN PHENCYCLIDINE (PCP) (test code = <25 ng/mL PHENCURN) URN METHADONE (test code = METHAURN) <300 ng/mL Urine Source? Clean CatchBASIC METABOLIC [id number] 06:16:00 Test Item Value Reference Range Interpretation Comments SODIUM (test code = 140 mmol/L 136-145 N NA) POTASSIUM (test code 3.8 mmol/L 3.5-5.1 N = K) CHLORIDE (test code = 104.0 mmol/L 98-107 N CL) CARBON DIOXIDE (test 25.0 mmol/L 21-32 N code = CO2) ANION GAP (test code 14.8 10-20 N = GAP) GLUCOSE (test code = 91 mg/dL 74-106 N GLU) BLOOD UREA NITROGEN 16 mg/dL 7-18 N (test code = BUN) GLOMERULAR FILTRATION 55 mL/min >=60 Estima mikey GFR by RATE (test code = using Lucian fied MDRD GFR) formula.Chronic kidney disease is defined as eith er kidney damageor GFR <60 mL/min/1.73 m2 for >3 months. CREATININE (test code 1.50 mg/dL 0.7-1.3 H = CREAT) BUN/CREATININE RATIO 10.9 10-20 N (test code = BUN/CREA) CALCIUM (test code = 11.1 mg/dL 8.5-10.1 H CA) HEPATIC FUNCTION [id number] 06:16:00 Test Item Value Reference Range Interpretation Comments TOTAL PROTEIN (test 8.6 gram/dL 6.4-8.2 H code = PROT) ALBUMIN (test code = 4.6 g/dL 3.4-5.0 N ALB) GLOBULIN (test code = 4.0 gram/dL 2.7-4.2 N GLOB) ALBUMIN/GLOBULIN RATIO 1.2 0.75-1.50 N (test code = A/G) BILIRUBIN TOTAL (test 1.30 mg/dL 0.0-1.0 H code = BILT) BILIRUBIN DIRECT (test 0.33 mg/dL 0.0-0.20 H code = BILD) SGOT/AST (test code = 1025 IUnit/L 15-37 H AST) SGPT/ALT (test code = 128 IUnit/L 12-78 H ALT) ALKALINE PHOSPHATASE 75 IUnit/L 45-117 N Note change in TOTAL (test code = reference range due ALKP) to change in reagent. [id number] 06:16:00 Test Item Value Reference Range Interpretation Comments ALCOHOL (test code < 3 mg/dL 0.0-3.0 N --------- --------INTERPRE = ALC) TIVE DATA NOTE: POSITIVE SCREEN ING RESULTS SHOULD BE CONSIDERED PRESUMPTIVE.WHE N COLLECTED FOR M EDICAL PURPOSES ONLY. SPECIMEN WILL NOTBE TESSA ECTED BY CHAIN OF CUSTOD Y.IF A CONFIRMATION OF POSITIVE RESULTS IS DELORIS RED, ACONFIRMATION T EST MUST BE REQUESTED BY THE PHYSICIAN AT AN ADDITIONAL CHARGE [facility] CBC W/O [id number] 06:07:00 Test Item Value Reference Range Interpretation Comments WHITE BLOOD CELL (test code = 9.7 K/mm3 4.5-12.5 N WBC) RED BLOOD CELL (test code = 4.89 mill/mm3 4.0-5.8 N RBC) HEMOGLOBIN (test code = HGB) 14.6 gram/dL 13.0-17.5 N HEMATOCRIT (test code = HCT) 42.8 % 42.0-52.0 N MEAN CELL VOLUME (test code = 87.5 fL 80-98 N MCV) MEAN CELL HGB (test code = MCH) 29.9 picogram 27.0-33.0 N MEAN CELL HGB CONCETRATION 34.1 gram/dL 33.0-36.0 N (test code = MCHC) RED CELL DISTRIBUTION WIDTH 11.9 % 11.6-16.2 N (test code = RDW) PLATELET COUNT (test code = 217 K/mm3 150-450 N PLT) MEAN PLATELET VOLUME (test code 11.5 fL 6.7-11.0 H = MPV) BASIC METABOLIC [id number] 06:04:00 Test Item Value Reference Range Interpretation Comments SODIUM (test code = NA) 140 mmol/L 136-145 N POTASSIUM (test code = K) 3.8 mmol/L 3.5-5.1 N CHLORIDE (test code = CL) 104.0 mmol/L 98-107 N CARBON DIOXIDE (test code = CO2) mmol/L 21-32 ANION GAP (test code = GAP) 10-20 GLUCOSE (test code = GLU) mg/dL 74-106 BLOOD UREA NITROGEN (test code = mg/dL 7-18 BUN) GLOMERULAR FILTRATION RATE (test mL/min >=60 code = GFR) CREATININE (test code = CREAT) mg/dL 0.7-1.3 BUN/CREATININE RATIO (test code 10-20 = BUN/CREA) CALCIUM (test code = CA) mg/dL 8.5-10.1 HEPATIC FUNCTION [id number] 06:04:00 Test Item Value Reference Range Interpretation Comments TOTAL PROTEIN (test code = PROT) gram/dL 6.4-8.2 ALBUMIN (test code = ALB) g/dL 3.4-5.0 GLOBULIN (test code = GLOB) gram/dL 2.7-4.2 ALBUMIN/GLOBULIN RATIO (test code = 0.75-1.50 A/G) BILIRUBIN TOTAL (test code = BILT) mg/dL 0.0-1.0 BILIRUBIN DIRECT (test code = BILD) mg/dL 0.0-0.20 SGOT/AST (test code = AST) IUnit/L 15-37 SGPT/ALT (test code = ALT) IUnit/L 12-78 ALKALINE PHOSPHATASE TOTAL (test IUnit/L 45-117 code = ALKP) [id number] 06:04:00 Test Item Value Reference Range Interpretation Comments ALCOHOL (test code = ALC) mg/dL 0-3 CBC W/O [id number] 05:58:00 Test Item Value Reference Range Interpretation Comments WHITE BLOOD CELL (test code = K/mm3 4.5-12.5 WBC) RED BLOOD CELL (test code = RBC) mill/mm3 4.0-5.8 HEMOGLOBIN (test code = HGB) 14.6 gram/dL 13.0-17.5 N HEMATOCRIT (test code = HCT) 42.8 % 42.0-52.0 N MEAN CELL VOLUME (test code = fL 80-98 MCV) MEAN CELL HGB (test code = MCH) picogram 27.0-33.0 MEAN CELL HGB CONCETRATION (test gram/dL 33.0-36.0 code = MCHC) RED CELL DISTRIBUTION WIDTH % 11.6-16.2 (test code = RDW) PLATELET COUNT (test code = PLT) 217 K/mm3 150-450 N MEAN PLATELET VOLUME (test code fL 6.7-11.0 = MPV) [id number] 07:41:00 Test Item Value Reference Range Interpretation Comments TROPONIN-I (test code = TROPI) <0.015 ng/mL 0-0.045 N COMMENTS TO DISPOSAL MAN: COLLECT 3 HOURS AFTER PREVIOUS SAMPLETROPONIN-I 2020-05-21 04:59:00 Test Item Value Reference Range Interpretation Comments TROPONIN-I (test code = TROPI) <0.015 ng/mL 0-0.045 N COMMENTS TO DISPOSAL MAN: COLLECT 3 HOURS AFTER PREVIOUS SAMPLEURINALYSIS [id number] 21:42:00 Test Item Value Reference Range Interpretation Comments UA COLOR (test code = COLU) YELLOW YELLOW UA APPEARANCE (test code = CLEAR CLEAR APPU) UA GLUCOSE DIPSTICK (test NEGATIVE mg/dL NEGATIVE code = DGLUU) UA BILIRUBIN DIPSTICK (test NEGATIVE mg/dL NEGATIVE code = BILU) UA KETONE DIPSTICK (test NEGATIVE mg/dL NEGATIVE code = KETU) UA SPECIFIC GRAVITY (test 1.016 1.001-1.035 code = SGU) UA BLOOD DIPSTICK (test Negative mg/dL NEGATIVE code = MARGIE) UA PH DIPSTICK (test code = 5.5 5.0-8.0 TAMEKA) UA PROTEIN DIPSTICK (test NEGATIVE mg/dL NEGATIVE code = PROU) UA UROBILINIOGEN DIPSTICK Normal mg/dL NEGATIVE (test code = URO) UA NITRITE DIPSTICK (test NEGATIVE NEGATIVE code = EDUARDO) UA LEUKOCYTE ESTERASE W NEGATIVE [place]/uL NEGATIVE REFLEX (test code = LEUUR) UA WBC (test code = WBCU) 0-5 per HPF 0-5 UA RBC (test code = RBCU) NONE SEEN #/HPF 0-5 UA EPITHELIAL CELLS (test None seen per HPF FEW code = EPIU) UA BACTERIA (test code = NONE SEEN #/HPF NONE BACU) UA HYALINE CAST (test code 6-10 #/LPF 0-5 A = HYALU) UA MUCUS (test code = MUCU) FEW #/LPF FEW Urine Source? Clean CatchDRUGS OF ABUSE SCREEN [id number] 21:42:00 Test Item Value Reference Range Interpretation Comments URN COCAINE (test NEGATIVE <300 ng/mL code = COCAURN) URN CANNABINOIDS POSITIVE <50 ng/mL A This test p rovides only a (test code = preliminary sapphire t result. CANNABURN) A morespecific alternate chemical method must be used in order t oobtain a confirmed sherry tical result. Gas chromatography/ mass spectrometry (G C/MS) is thepreferred co nfirmatory method. Other c hemical confirmationmet hods are available. Clin ical consideration a nd professional ju dgment should be appli ed to any drug of abusete st result, particularly wh en preliminary pos itive resultsare used.Unconfirme d screening resul ts must not be used fornon-medical purposes (e.g., employme nt testing, legalt esting). URN AMPHETAMINE (test POSITIVE <1000 ng/mL A This t est provides only a code = AMPHETURN) preliminar y test result. A morespecific alternate chemical method must be used in order t oobtain a confirmed sherry tical result. Gas chromatography/ mass spectrometry (G C/MS) is thepreferred co nfirmatory method. Other c hemical confirmationmet hods are available. Clin ical consideration a nd professional ju dgment should be appli ed to any drug of abusete st result, particularly wh en preliminary pos itive resultsare used.Unconfirme d screening resul ts must not be used fornon-medical purposes (e.g., employme nt testing, legalt esting). URN BARBITURATE (test NEGATIVE <200 ng/mL code = BARBITURN) URN BENZODIAZEPINE POSITIVE <200 ng/mL A This test provides only a (test code = preliminary sapphire t result. BENZOURN) A morespecific alternate chemical method must be used in order t oobtain a confirmed sherry tical result. Gas chromatography/ mass spectrometry (G C/MS) is thepreferred co nfirmatory method. Other c hemical confirmationmet hods are available. Clin ical consideration a nd professional ju dgment should be appli ed to any drug of abusete st result, particularly wh en preliminary pos itive resultsare used.Unconfirme d screening resul ts must not be used fornon-medical purposes (e.g., employme nt testing, legalt esting). URN OPIATES (test NEGATIVE <300 ng/mL code = OPIATURN) URN PHENCYCLIDINE NEGATIVE <25 ng/mL (PCP) (test code = PHENCURN) URN METHADONE (test NEGATIVE <300 ng/mL code = METHAURN) Urine Source? Clean CatchBASIC METABOLIC [id number] 21:15:00 Test Item Value Reference Range Interpretation Comments SODIUM (test code = 142 mmol/L 136-145 N NA) POTASSIUM (test code 4.0 mmol/L 3.5-5.1 N = K) CHLORIDE (test code = 108.0 mmol/L 98-107 H CL) CARBON DIOXIDE (test 24.0 mmol/L 21-32 N code = CO2) ANION GAP (test code 14.0 10-20 N = GAP) GLUCOSE (test code = 79 mg/dL 74-106 N GLU) BLOOD UREA NITROGEN 23 mg/dL 7-18 H (test code = BUN) GLOMERULAR FILTRATION > 60 mL/min >=60 Estima mikey GFR by RATE (test code = using Ulcian fied MDRD GFR) formula.Chronic kidney disease is defined as eith er kidney damageor GFR <60 mL/min/1.73 m2 for >3 months. CREATININE (test code 1.20 mg/dL 0.7-1.3 N = CREAT) BUN/CREATININE RATIO 19.7 10-20 N (test code = BUN/CREA) CALCIUM (test code = 8.9 mg/dL 8.5-10.1 N CA) HEPATIC FUNCTION [id number] 21:15:00 Test Item Value Reference Range Interpretation Comments TOTAL PROTEIN (test 8.4 gram/dL 6.4-8.2 H code = PROT) ALBUMIN (test code = 4.7 g/dL 3.4-5.0 N ALB) GLOBULIN (test code = 3.7 gram/dL 2.7-4.2 N GLOB) ALBUMIN/GLOBULIN RATIO 1.3 0.75-1.50 N (test code = A/G) BILIRUBIN TOTAL (test 0.80 mg/dL 0.0-1.0 N code = BILT) BILIRUBIN DIRECT (test 0.27 mg/dL 0.0-0.20 H code = BILD) SGOT/AST (test code = 40 IUnit/L 15-37 H AST) SGPT/ALT (test code = 26 IUnit/L 12-78 N ALT) ALKALINE PHOSPHATASE 92 IUnit/L 45-117 N Note change in TOTAL (test code = reference range due ALKP) to change in reagent. [id number] 21:15:00 Test Item Value Reference Range Interpretation Comments TROPONIN-I (test code = TROPI) <0.015 ng/mL 0-0.045 N [id number] 21:15:00 Test Item Value Reference Range Interpretation Comments ACETAMINOPHEN (test < 10 mcg/mL 10-30 L A RANGE OF 10-30 code = ACET) mcg/mL IS A THERAPEUTIC RAN GE. TOXIC CONCENTRATIONS: >150 mcg/mL AT 4 DANAY RS AFTER INGESTION >= 50 mcg/mL AT 12 HOURS AFTER INGESTION [id number] 21:15:00 Test Item Value Reference Range Interpretation Comments SALICYLATE (test code = BIGG) < 1.7 mg/dL 2.8-20.0 L [id number] 21:15:00 Test Item Value Reference Range Interpretation Comments ALCOHOL (test code = 70 mg/dL 0.0-3.0 H ------- INTERPRE ALC) TIVE DATA NOTE: POSITIVE SCREEN ING RESULTS SHOULD BE CONSIDERED PRESUMPTIVE.WHE N COLLECTED FOR M EDICAL PURPOSES ONLY. SPECIMEN WILL NOTBE TESSA ECTED BY CHAIN OF CUSTOD Y.IF A CONFIRMATION OF POSITIVE RESULTS IS DELORIS RED, ACONFIRMATION T EST MUST BE REQUESTED BY THE PHYSICIAN AT AN ADDITIONAL CHARGE TO THE P ATIENT. URINALYSIS [id number] 21:02:00 Test Item Value Reference Range Interpretation Comments UA COLOR (test code = COLU) YELLOW YELLOW UA APPEARANCE (test code = CLEAR CLEAR APPU) UA GLUCOSE DIPSTICK (test NEGATIVE mg/dL NEGATIVE code = DGLUU) UA BILIRUBIN DIPSTICK (test NEGATIVE mg/dL NEGATIVE code = BILU) UA KETONE DIPSTICK (test NEGATIVE mg/dL NEGATIVE code = KETU) UA SPECIFIC GRAVITY (test 1.016 1.001-1.035 code = SGU) UA BLOOD DIPSTICK (test Negative mg/dL NEGATIVE code = MARGIE) UA PH DIPSTICK (test code = 5.5 5.0-8.0 TAMEKA) UA PROTEIN DIPSTICK (test NEGATIVE mg/dL NEGATIVE code = PROU) UA UROBILINIOGEN DIPSTICK Normal mg/dL NEGATIVE (test code = URO) UA NITRITE DIPSTICK (test NEGATIVE NEGATIVE code = EDUARDO) UA LEUKOCYTE ESTERASE W NEGATIVE Geneva/uL NEGATIVE REFLEX (test code = LEUUR) UA WBC (test code = WBCU) 0-5 per HPF 0-5 UA RBC (test code = RBCU) NONE SEEN #/HPF 0-5 UA EPITHELIAL CELLS (test None seen per HPF FEW code = EPIU) UA BACTERIA (test code = NONE SEEN #/HPF NONE BACU) UA HYALINE CAST (test code 6-10 #/LPF 0-5 A = HYALU) UA MUCUS (test code = MUCU) FEW #/LPF FEW Urine Source? Clean CatchDRUGS OF ABUSE SCREEN [id number] 21:02:00 Test Item Value Reference Range Interpretation Comments URN COCAINE (test code = COCAURN) <300 ng/mL URN CANNABINOIDS (test code = <50 ng/mL CANNABURN) URN AMPHETAMINE (test code = AMPHETURN) <1000 ng/mL URN BARBITURATE (test code = BARBITURN) <200 ng/mL URN BENZODIAZEPINE (test code = <200 ng/mL BENZOURN) URN OPIATES (test code = OPIATURN) <300 ng/mL URN PHENCYCLIDINE (PCP) (test code = <25 ng/mL PHENCURN) URN METHADONE (test code = METHAURN) <300 ng/mL Urine Source? Clean CatchCBC W/AUTO [id number] 20:50:00 Test Item Value Reference Range Interpretation Comments WHITE BLOOD CELL (test code = 8.8 K/mm3 4.5-12.5 N WBC) RED BLOOD CELL (test code = 4.80 mill/mm3 4.0-5.8 N RBC) HEMOGLOBIN (test code = HGB) 14.5 gram/dL 13.0-17.5 N HEMATOCRIT (test code = HCT) 43.4 % 42.0-52.0 N MEAN CELL VOLUME (test code = 90.4 fL 80-98 N MCV) MEAN CELL HGB (test code = MCH) 30.2 picogram 27.0-33.0 N MEAN CELL HGB CONCETRATION 33.4 gram/dL 33.0-36.0 N (test code = MCHC) RED CELL DISTRIBUTION WIDTH 11.7 % 11.6-16.2 N (test code = RDW) RED CELL DISTRIBUTION WIDTH SD 38.1 fL 37.0-51.0 N (test code = RDW-SD) PLATELET COUNT (test code = 226 K/mm3 150-450 N PLT) MEAN PLATELET VOLUME (test code 11.3 fL 6.7-11.0 H = MPV) NEUTROPHIL % (test code = NT%) 72.8 % 39.0-69.0 H IMMATURE GRANULOCYTE % (test 0.6 % 0.0-5.0 N code = IG%) LYMPHOCYTE % (test code = LY%) 18.1 % 25.0-55.0 L MONOCYTE % (test code = MO%) 7.3 % 0.0-10.0 N EOSINOPHIL % (test code = EO%) 0.6 % 0.0-5.0 N BASOPHIL % (test code = BA%) 0.6 % 0.0-1.0 N NUCLEATED RBC % (test code = 0.0 % 0-0 N NRBC%) NEUTROPHIL # (test code = NT#) 6.38 K/mm3 1.8-7.7 N IMMATURE GRANULOCYTE # (test 0.05 x10 3/uL 0-0.03 H code = IG#) LYMPHOCYTE # (test code = LY#) 1.58 K/mm3 1.0-5.0 N MONOCYTE # (test code = MO#) 0.64 K/mm3 0-0.8 N EOSINOPHIL # (test code = EO#) 0.05 K/mm3 0.0-0.5 N BASOPHIL # (test code = BA#) 0.05 K/mm3 0.0-0.2 N NUCLEATED RBC # (test code = 0.00 K/mm3 0.0-0.1 N NRBC#) - [facility] 1 [id number] 20:35:00 FAX: Brian Montes MD [phone] [place]: [address]: REG Name: VICTOR M SCHULER [facility] : 1990 Age/S: 29/M [address] Unit #: [id number] Loc: [place] [address] Phys: Brian Montes MD Acct: [id number] Dis Date: Status: REG ER PHONE #: [phone] Exam Date: 05/20/20202023 FAX #: [phone] Reason: Altered Mental Status EXAMS: CPT CODE: [id number] XR CHEST 1 V 15142 EXAM: Chest X-ray, 1 view;CLINICAL HISTORY: Altered mental status; FINDINGS: The lungs are clear, no infiltrates, no edema; noeffusions; no pneumothorax; normal cardiomediastinal silhouette. No significant change compared witha study from July 17, 2018; IMPRESSION: Normal chest x-ray. Location code: [facility] at 2034 Reported and signed by: Yuriy Allen M.D. CC: Brian Montes MD Technologist: Elaine Gallegos RT(R); Joshua Davalos RT(R Trnscrd Date/Time/By: 05/20/2020 (2034) : By: DimaGRW Orig Print D/T: S: 05/20/2020 (2037) PAGE 1 Signed Report- CT HEAD/BRAIN W/O [id number] 20:20:00 Name: VICTOR M SCHULER [facility] : 1990 Age/S: 29 / M [address] Unit #: [id number] Loc: [place] [address] Phys: Brian Montes MD Acct: [id number] Dis Date: Status: REG ER PHONE #: [phone] Exam Date: 05/20/20202005 FAX #: [phone] Reason: Altered Mental Status EXAMS: CPT CODE: [id number] CT HEAD/BRAIN W/O CONT [id number] EXAM: CT of the head; INFORMATION: Altered mental sta tus; TECHNIQUE AND FINDINGS: CT dose reduction protocol; The ventricles are symmetric and of normal diameter; normal width of basilar cisterns and sulci; normal castaneda/white matter differentiation; no evidence of intra or extra-axial hemorrhage, mass lesion or midline shift. Bone windows show no abnormalities. IMPRESSION: Normal CT scan of the head. Location code: [facility] at 2019 Reported and signed by: Yuriy Allen M.D. CC: Brian Montes MD Technologist:Velvet Kent RT(R); VALERIE Velasco CTDI: DLP: Trnscb Date/Time: 05/20/2020 (2019) t.GRW Orig Print D/T: S: 05/20/2020 (2022) PAGE 1 Signed Report- XR FOOT 3 + V [id number] 19:06:00 FAX: Nhung Ontiveros [phone] [place]: St: PRE Name: VICTOR M SCHULER [facility] : 1990 Age/S: 28/[address] Unit #: [id number] Loc: [place] [address] Phys: Nhung Ontiveros [employer] INTERN Acct: [id number] Dis Date: Status: PRE ER PHONE #: [phone] Exam Date: 11/13/2019 1844 FAX #: [phone] Reason: FOOT PAIN, L 5TH DIGIT EXAMS: CPT CODE: [id number] XR FOOT 3 + [place] [address] Examination: Left foot 3 views Location code: H60 Comparison: None Discussion: Clinical history is remarkable for foot pain. There is no evidence for acute fracture or dislocation. No lytic or blastic lesions identified. No erosive changes identified. No other bony or soft tissue abnormalities identified. Impression: 1. Normal left foot. at 1906 Reportedand signed by: Philipp Covarrubias MD CC: Nhung Ontiveros NP Technologist: Lacy North Trnscrd Date/Time/By: 11/13/2019 (1905) : By: [email or web address] PAGE 1 Signed Report FAX: Nhung Ontiveros [phone] [place]: St: PRE --Name: VICTOR M SCHULER [facility] : 1990 Age/S: 28/M [address] Unit #: [id number] Loc: [place] [address] Phys: Nhung Ontiveros NP Acct: [id number] Dis Date: Status: PRE ER PHONE #: [phone] Exam Date: 11/13/2019 1844 FAX #: [phone] Reason: FOOT PAIN, L 5TH DIGIT EXAMS: CPT CODE: [id number] XR FOOT 3 + [place] [address] <Continued> Orig Print D/T: S: 11/13/2019 (1908) PAGE 2 Signed ReportTROPONIN I [id number] 18:45:00 Test Item Value Reference Range Interpretation Comments TROPONIN I RAPID 0.00 ng/mL 0.00-0.079 N ISTAT TROP ONIN I (test code = CRITERIA0.00-0. 08 ng/mL - TROPIRAP) Negative>0.08 n g/mL - Positive The us e of serial sampling and te sting protocol is are commended practice.An bob vated troponin level alone is often not suffi cient fordiagnosis of myocardial infarction. Tro ponin results obtaine d by different assay s may vary.Evaluation of the extent of myoca rdial damage based on increase of troponin would be valid only if similar methodology is used. URINALYSIS [id number] 17:27:00 Test Item Value Reference Range Interpretation Comments UA COLOR (test code = Light-Yellow YELLOW COLU) UA APPEARANCE (test code CLEAR CLEAR = APPU) UA GLUCOSE DIPSTICK (test NEGATIVE mg/dL NEGATIVE code = DGLUU) UA BILIRUBIN DIPSTICK NEGATIVE mg/dL NEGATIVE (test code = BILU) UA KETONE DIPSTICK (test NEGATIVE mg/dL NEGATIVE code = KETU) UA SPECIFIC GRAVITY (test 1.014 1.001-1.035 code = SGU) UA BLOOD DIPSTICK (test Negative mg/dL NEGATIVE code = MARGIE) UA PH DIPSTICK (test code 7.0 5.0-8.0 = TAMEKA) UA PROTEIN DIPSTICK (test NEGATIVE mg/dL NEGATIVE code = PROU) UA UROBILINIOGEN DIPSTICK Normal mg/dL NEGATIVE (test code = URO) UA NITRITE DIPSTICK (test NEGATIVE NEGATIVE code = EDUARDO) UA LEUKOCYTE ESTERASE W 250 [place]/uL (2+) NEGATIVE A REFLEX (test code = [place]/uL LEUUR) UA WBC (test code = WBCU) 51-100 per HPF 0-5 A UA RBC (test code = RBCU) 0-2 #/HPF 0-5 UA EPITHELIAL CELLS (test None seen per HPF Few code = EPIU) UA BACTERIA (test code = FEW #/HPF NONE A BACU) UA MUCUS (test code = FEW #/LPF FEW MUCU) Urine Source? VoidedURINALYSIS [id number] 17:26:00 Test Item Value Reference Range Interpretation Comments UA COLOR (test code = Light-Yellow YELLOW COLU) UA APPEARANCE (test code CLEAR CLEAR = APPU) UA GLUCOSE DIPSTICK (test NEGATIVE mg/dL NEGATIVE code = DGLUU) UA BILIRUBIN DIPSTICK NEGATIVE mg/dL NEGATIVE (test code = BILU) UA KETONE DIPSTICK (test NEGATIVE mg/dL NEGATIVE code = KETU) UA SPECIFIC GRAVITY (test 1.014 1.001-1.035 code = SGU) UA BLOOD DIPSTICK (test Negative mg/dL NEGATIVE code = MARGIE) UA PH DIPSTICK (test code 7.0 5.0-8.0 = TAMEKA) UA PROTEIN DIPSTICK (test NEGATIVE mg/dL NEGATIVE code = PROU) UA UROBILINIOGEN DIPSTICK Normal mg/dL NEGATIVE (test code = URO) UA NITRITE DIPSTICK (test NEGATIVE NEGATIVE code = EDUARDO) UA LEUKOCYTE ESTERASE W 250 [place]/uL (2+) NEGATIVE A REFLEX (test code = [place]/uL LEUUR) UA WBC (test code = WBCU) 51-100 per HPF 0-5 A UA RBC (test code = RBCU) 0-2 #/HPF 0-5 UA EPITHELIAL CELLS (test per HPF Few code = EPIU) UA BACTERIA (test code = FEW #/HPF NONE A BACU) UA MUCUS (test code = FEW #/LPF FEW MUCU) Urine Source? VoidedURINALYSIS [id number] 17:09:00 Test Item Value Reference Range Interpretation Comments UA COLOR (test code = Light-Yellow YELLOW COLU) UA APPEARANCE (test code CLEAR CLEAR = APPU) UA GLUCOSE DIPSTICK (test NEGATIVE mg/dL NEGATIVE code = DGLUU) UA BILIRUBIN DIPSTICK NEGATIVE mg/dL NEGATIVE (test code = BILU) UA KETONE DIPSTICK (test NEGATIVE mg/dL NEGATIVE code = KETU) UA SPECIFIC GRAVITY (test 1.014 1.001-1.035 code = SGU) UA BLOOD DIPSTICK (test Negative mg/dL NEGATIVE code = MARGIE) UA PH DIPSTICK (test code 7.0 5.0-8.0 = TAMEKA) UA PROTEIN DIPSTICK (test NEGATIVE mg/dL NEGATIVE code = PROU) UA UROBILINIOGEN DIPSTICK Normal mg/dL NEGATIVE (test code = URO) UA NITRITE DIPSTICK (test NEGATIVE NEGATIVE code = EDUARDO) UA LEUKOCYTE ESTERASE W 250 [place]/uL (2+) NEGATIVE A REFLEX (test code = [place]/uL LEUUR) UA WBC (test code = WBCU) per HPF 0-5 UA RBC (test code = RBCU) per HPF 0-5 UA EPITHELIAL CELLS (test per HPF Few code = EPIU) UA BACTERIA (test code = per HPF NONE BACU) Urine Source? VoidedXR chest 1V [facility] [address] [place] [address] Patient Name: Victor M Schuler Medical Record#: [id number] Address: [address] [place] [address] City/State/Zip: [place] [address]: Ganesh Winters DO Insurance: Self Pay /Age/Sex: 1990//M Admit/Reg Date: 07/26/[address]: Ganesh Winters DO Location: [facility]/ PCP: Pcp-Md JULIO CÉSAR Riley Date of Service: 07/27/21 Order (s): XR chest 1V CPT Code: 14065 Report Number: [id number] Reason for Exam: Trauma EXAM: XR CHEST 1 VIEW COMPARISON:None available time of interpretation. LOCATION: 7 HISTORY: 30 years-year old Male with Trauma TECHNIQUE: Single AP view of the chest. FINDINGS: The cardiomediastinal silhouette is within normal limits. The lungs are clear. No appreciable pneumothorax or pleural effusion. Osseous structures and soft tissues demonstrate no acute findings. The visualized upper abdomen is unremarkable. IMPRESSION: Noacute cardiopulmonary abnormality. Electronically signed by: Giovanni Lr MD 07/27/2021 1:05 AM CDT Wo rkstation: [id number] Dictated By: Giovanni Lr MD 07/27/2157 Signed By: Giovanni Lr MD 07/27/2157 TD/TT: 07/27/2157 Tech: PTN01 cc: NICKI; RASAM02* Ganesh Winters DO; Pcp-Md Rosemary MDCT chest w con [address] [address] Patient Name: Victor M Schuler Medical Record#: [id number] Address: [address] [place] [address] City/State/Zip: [place] [address]: Ganesh Winters DO Insurance: Self Pay /Age/Sex: 1990//M Admit/Reg Date: 07/26/[address]: Ashanti Diaz rdo, PAC Location: [facility]/ PCP: Pcp-Md JULIO CÉSAR Riley Date of Service: 07/27/21 Order (s): CT chest w con CPT Code: 57087 Report Number: [id number] Reason for Exam: trauma EXAM: CT CHEST WITH IV CONTRAST LOCATION: H57 HISTORY: trauma TECHNIQUE: Axial tomograms through the chest were obtained with intravenous contrast. Coronal and sagittal reformatted images are provided. This exam was performed according to our departmental dose-optimization program, which includes automated exposure control, adjustment of the mA and/or kV according to patient size and/or use of iterative reconstruction technique.COMPARISON: None available time of interpretation. FINDINGS: Lungs: The lungs are clear. Pleura: No effusions or pneumothorax. Mediastinal: There is no pericardial effusion. The trachea is unremarkable. The esophagus is grossly unremarkable. Vasculature: The aorta tapers normally. Lymph nodes: There is no mediastinal, hilar, or axillary adenopathy. Bones: No acute osseous findings. Soft tissues: Unremarkable. Visualized abdomen: Unremarkable. IMPRESSION: 1. No acute cardiopulmonary findings. Electronically signed by: Giovanni Lr MD 07/27/2021 4:33 AM CDT Dictated By: Giovanni Lr MD 07/27/21 0416 Signed By: Giovanni Lr MD 07/27/21 0416 TD/TT: 07/27/216 Tech: OMO0 1 cc: LISBETHAAL; PCPNO* Ashanti Pierre PAC; Pcp-Md Rosemary MDCT abdomen pelvis w con [address] [address] Patient Name: Victor M Schuler Medical Record#: [id number] Address: [address] [place] [address] City/State/Zip: [place] [address]: Ganesh Winters DO Insurance: Self Pay /Age/Sex: 1990/30/M Admit/Reg Date: 07/26/[address]: KRAIG Osborne Location: [facility]/ PCP: PcpMd JULIO CÉSAR Metcalf Date of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
--- NOTE | 2022-09-18 04:04 | ER ---
Nurse's Notes [facility] Name: Arun Schuler Age: 31 yrs Sex: Male : 1990 Arrival Date: 09/18/2022 Time: 03:43 Bed 15 Private MD: Diagnosis: Bipolar disorder, unspecified;Abuse of other non-psychoactive substances-methamphetamines;Auditory hallucinations;Suicidal ideations;Patient's noncompliance with other medical treatment and regimen Presentation: 09/18 03:48 Chief complaint: Police: Patient states that he was previously been diagnosed with ke1 schizophrenia and bipolar disorder. he was previously prescribed medication for such disorders but is no longer taking them, called [place] police requesting help stating that he was having a mental breakdown and no longer wants to live. Coronavirus screen: Vaccine status: Patient reports being unvaccinated. Ebola Screen: No symptoms or risks identified at this time. Initial Sepsis Screen: Does the patient meet any 2 criteria? No. Patient's initial sepsis screen is negative. Does the patient have a suspected source of infection? No. Patient's initial sepsis screen is negative. Risk Assessment: Do you want to hurt yourself or someone else? Patient reports desire/thoughts of hurting themselves or someone else. Provider notified. Onset of symptoms was September 18, 2022 at 02:00. 03:48 Method Of Arrival: Law Enforcement: Lisha ke 03:48 Acuity: ANGELICA 2 bb Triage Assessment: 04:00 General: Appears unkempt, Behavior is calm, cooperative. Pain: Denies pain. Neuro: ke1 William Agitation-Sedation Scale (RASS): 0 - Alert and Calm Level of Consciousness is awake, alert, Oriented to person, place, time, situation. Historical: - Allergies: 04:00 No Known Allergies; ke1 - PMHx: 04:00 Bipolar disorder; Depression; Schizophrenia; ke1 - Immunization history:: Adult Immunizations unknown. - Social history:: Smoking status: Patient reports the use of cigarette tobacco products, unknown amount. Screenin:20 Abuse screen: Denies threats or abuse. Nutritional screening: No deficits noted. ke1 Tuberculosis screening: No symptoms or risk factors identified. Fall Risk None identified. Assessment: 04:15 Neuro: William Agitation-Sedation Scale (RASS): +1 Restless. ke1 05:48 Neuro: William Agitation-Sedation Scale (RASS): +1 Restless. ke1 06:42 Reassessment: Patient on the phone with [facility]. ke1 07:00 Reassessment: RECD REPORT FROM LAUREN MEIER. 31YO HM P/W PSYCH D/O, OFF PRESCRIBED MEDS. bp 09:00 Reassessment: PT ASSERTS NO SI OR HI, REQUESTING PSYCH MED REFILL SO MAY ATTEND WORK bp STARTING TOMORROW. 10:03 Reassessment: PT DC HOME AMBULATORY, DX WITH BIPOLAR D/O. bp Vital Signs: 03:48 BP 130 / 72; Pulse 91; Resp 17; Temp 98.8(O); Pulse Ox 100% on R/A; Weight 102.06 kg; ke1 Height 6 ft. 1 in. (185.42 cm); 10:03 BP 122 / 83; Pulse 86; Resp 16; Temp 98.2; Pulse Ox 100% ; bp 03:48 Body Mass Index 29.68 (102.06 kg, 185.42 cm) ke1 ED Course: 03:43 Patient arrived in ED. vc1 03:47 Yasir Beck DO is Attending Physician. ms3 03:47 Lauren Mendez, HARDEEP is Primary Nurse. ke1 04:00 Triage completed. ke1 04:00 Safety Checks: Personal items have been removed. The door is open or patient has been ke1 placed in a hallway bed/chair. Sitter present at this time. 04:19 Inserted saline lock: 20 gauge in left antecubital area, using aseptic technique. ke1 04:20 Arm band placed on left wrist. ke1 04:20 Valuables inventory done. See valuables checklist. ke1 04:29 Acetaminophen Sent. ke1 04:29 BMP Sent. ke1 04:29 Ethanol Sent. ke1 04:29 Hepatic Function Sent. ke1 04:29 SARS-COV-2 Antigen Rapid Sent. ke1 04:29 Salicylate Sent. ke1 06:06 contacted [facility] Crisis Line yumiko to [place]andal to have a screener evaluate the patient. mw2 06:41 connected Serena from [facility] with patient for video screening. eb 08:33 faxed patient records and [facility] recommendations to the following facilities in [place] to find [facility]/ [facility] [facility]/ [facility]/ [facility]/ [facility]/ [facility]/ [facility]/ [facility]/ [facility]/ [facility]/. 09:34 Attending Physician role handed off by Yasir Beck DO cha 09:34 Zheng Arceo MD is Attending Physician. [facility] 09:35 Nando Dacosta MD is Referral Physician. noemy 10:06 No provider procedures requiring assistance completed. IV discontinued, intact, bp bleeding controlled, No redness/swelling at site. Pressure dressing applied. Administered Medications: 04:19 Drug: ZyPREXA (OLANZapine) 10 mg Route: PO; ke1 05:57 Follow up: Response: No adverse reaction ke1 04:19 Drug: Ativan (LORazepam) 1 mg Route: IVP; Site: left antecubital; ke1 04:36 Follow up: Response: RASS: Alert and Calm (0) ke1 05:48 Drug: Ativan (LORazepam) 1 mg Route: IVP; Site: left antecubital; ke1 06:10 Follow up: Response: RASS: Alert and Calm (0) ke1 Medication: 10:12 VIS not applicable for this client. bp Outcome: 04:03 ER care complete, transfer ordered by . ms3 09:37 Discharge ordered by . noemy 10:06 Discharged to home ambulatory. bp 10:06 Condition: stable 10:06 Discharge instructions given to patient, Instructed on discharge instructions, follow up and referral plans. medication usage, Demonstrated understanding of instructions, follow-up care, medications, Prescriptions given X 2. 10:12 Patient left the ED. bp Signatures: Zheng Arceo MD MD cha Ballard, Brenda, RN RN Sandeep Rangel, RN RN bp Adelaida Mckee mw2 Claudia Bullard Yasir Beck DO DO ms3 Ibis Crocker RN RN 1 Lauren Mendez RN RN ke1 Corrections: (The following items were deleted from the chart) 06:56 03:48 Acuity: ANGELICA 3 ke1 bb
--- NOTE | 2022-09-18 04:04 | EDPHYS ---
Physician Documentation [facility] Name: Arun Schuler Age: 31 yrs Sex: Male : 1990 Arrival Date: 09/18/2022 Time: 03:43 Bed 15 Private MD: ED Physician Zheng Arceo HPI: 09/18 03:57 This 31 yrs old Male presents to ER via Unassigned with complaints of ms3 hallucinations/ Suicidal ideation. 03:57 The patient presents to the emergency department with suicide ideation, but the patient ms3 has no formulated plan. Onset: The symptoms/episode began/occurred last month. Past psychiatric history: Prior diagnosis: bipolar disorder, schizophrenia, Psychiatric medications include: Zyprexa, the patient has a previous inpatient psychiatric history. Associated signs and symptoms: Pertinent positives; hallucinations, Pertinent negatives: homicidal ideation. Severity of symptoms: At their worst the symptoms were moderate in the emergency department the symptoms are unchanged. 31-year-old male presents via [place] [employer] for hearing voices and not wanting to live. Patient states demons are telling him people are out to get him. Patient states the voices are telling him that the people he lives with need to be dealt with. Patient states he has had suicidal ideations for 2 years after losing his friend. Patient denies pain at this time. Patient denies inciting factors. Patient states in the past taking his Zyprexa has helped with his symptoms. Patient states he has not been on his medications which she states are Zyprexa and Seroquel.. Historical: - Allergies: 04:00 No Known Allergies; ke1 - PMHx: 04:00 Bipolar disorder; Depression; Schizophrenia; ke1 - Immunization history:: Adult Immunizations unknown. - Social history:: Smoking status: Patient reports the use of cigarette tobacco products, unknown amount. ROS: 03:57 Constitutional: Negative for fever, and chills. Neck: Negative for injury, pain, and ms3 swelling, Cardiovascular: Negative for chest pain, and palpitations. Respiratory: Negative for shortness of breath, cough, wheezing, and pleuritic chest pain, Abdomen/GI: Negative for abdominal pain, nausea, vomiting, diarrhea, and constipation, Back: Negative for injury and pain, MS/Extremity: Negative for injury and deformity, Skin: Negative for injury, rash, and discoloration. 03:57 Neuro: Negative for headache, weakness, numbness, tingling. 03:57 Neuro: Positive for 03:57 Psych: Positive for anxiety, auditory hallucinations, suicidal ideation. 03:57 All other systems are negative. Exam: 03:57 Constitutional: This is a well developed, well nourished patient who is awake, alert, ms3 and in no acute distress. Head/Face: Normocephalic, atraumatic. Neck: Trachea midline, no cervical lymphadenopathy. Supple, full range of motion without nuchal rigidity, or vertebral point tenderness. No Meningismus. Chest/axilla: Normal chest wall appearance and motion. Nontender with no deformity. Cardiovascular: Regular rate and rhythm with a normal S1 and S2. No gallops, murmurs, or rubs. Normal PMI, no JVD. No pulse deficits. Respiratory: Lungs have equal breath sounds bilaterally, clear to auscultation and percussion. No rales, rhonchi or wheezes noted. No increased work of breathing, no retractions or nasal flaring. Abdomen/GI: Soft, non-tender, with normal bowel sounds. No distension or tympany. No guarding or rebound. No evidence of tenderness throughout. Skin: Warm, dry with normal turgor. Normal color with no rashes, no lesions, and no evidence of cellulitis. MS/ Extremity: Pulses equal, no cyanosis. Neurovascular intact. Full, normal range of motion. 03:57 Psych: Behavior/mood is pleasant, cooperative, anxious, Affect is calm, Oriented to person, place, time, Patient has no thoughts/intents to harm self or others. Judgement / Insight is normal. Memory is normal. Delusions/hallucinations are present and described as Demons in his head. 04:26 ECG was reviewed by the Attending Physician. ms3 Vital Signs: 03:48 BP 130 / 72; Pulse 91; Resp 17; Temp 98.8(O); Pulse Ox 100% on R/A; Weight 102.06 kg; ke1 Height 6 ft. 1 in. (185.42 cm); 10:03 BP 122 / 83; Pulse 86; Resp 16; Temp 98.2; Pulse Ox 100% ; bp 03:48 Body Mass Index 29.68 (102.06 kg, 185.42 cm) ke1 MDM: 03:47 Patient medically screened. ms3 04:02 Differential diagnosis: drug withdrawal. acute psychotic break, depression, psychosis ms3 secondary to non-compliance. Data reviewed: vital signs, nurses notes. 09/18 03:55 Order name: Acetaminophen; Complete Time: 09:34 ms3 09/18 03:55 Order name: BMP; Complete Time: 09:34 ms3 09/18 03:55 Order name: CBC with Diff; Complete Time: 04:56 ms3 09/18 03:55 Order name: Ethanol; Complete Time: 04:56 ms3 09/18 03:55 Order name: Hepatic Function; Complete Time: 09:34 ms3 09/18 03:55 Order name: Protime (+inr); Complete Time: 04:56 ms3 09/18 03:55 Order name: Ptt, Activated; Complete Time: 04:56 ms3 09/18 03:55 Order name: SARS-COV-2 Antigen Rapid; Complete Time: 09:34 ms3 09/18 03:55 Order name: Salicylate ms3 09/18 03:55 Order name: Urine Drug Screen; Complete Time: 09:34 ms3 09/18 04:50 Order name: Urine Dipstick-Ancillary; Complete Time: 04:56 EDMS 09/18 03:55 Order name: EKG; Complete Time: 03:56 ms3 09/18 03:55 Order name: EKG - Nurse/Tech; Complete Time: 04:28 ms3 09/18 03:55 Order name: IV Saline Lock; Complete Time: 04:28 ms3 09/18 03:55 Order name: Labs collected and sent; Complete Time: 04:28 ms3 09/18 03:55 Order name: O2 Per Protocol; Complete Time: 04:49 ms3 09/18 03:55 Order name: O2 Sat Monitoring; Complete Time: 04:49 ms3 09/18 03:55 Order name: Suicide Precautions; Complete Time: 04:56 ms3 09/18 03:55 Order name: Suicide Screening ([facility]); Complete Time: 04:56 ms3 09/18 03:55 Order name: Urine Dipstick-Ancillary (obtain specimen); Complete Time: 04:49 ms3 09/18 08:08 Order name: Diet Finger Food; Complete Time: 08:09 bp EC:26 Rate is 83 beats/min. Rhythm is regular. Left axis deviation noted. NH interval is ms3 normal. QRS interval is normal. Clinical impression: NSR w/ Non-specific ST/T Changes. Interpreted by me. Reviewed by me. Administered Medications: 04:19 Drug: ZyPREXA (OLANZapine) 10 mg Route: PO; ke1 05:57 Follow up: Response: No adverse reaction ke1 04:19 Drug: Ativan (LORazepam) 1 mg Route: IVP; Site: left antecubital; ke1 04:36 Follow up: Response: RASS: Alert and Calm (0) ke1 05:48 Drug: Ativan (LORazepam) 1 mg Route: IVP; Site: left antecubital; ke1 06:10 Follow up: Response: RASS: Alert and Calm (0) ke1 Disposition Summary: 09/18/22 09:37 Discharge Ordered Location: Home noemy Problem: new(09/18/22 09:37) noemy Symptoms: have improved(09/18/22 09:37) noemy Condition: Stable(09/18/22 09:37) noemy Diagnosis - Bipolar disorder, unspecified(09/18/22 09:37) noemy - Abuse of other non-psychoactive substances - methamphetamines noemy - Auditory hallucinations(09/18/22 09:37) noemy - Suicidal ideations noemy - Patient's noncompliance with other medical treatment and regimen noemy Followup: noemy - With: Private Physician - When: 2 - 3 days - Reason: Recheck today's complaints, Continuance of care, Re-evaluation by your physician Followup: noemy - With: Nando Dacosta MD - When: 2 - 3 days - Reason: Recheck today's complaints, Re-evaluation by your physician Discharge Instructions: - Discharge Summary Sheet noemy - Finding Treatment for Addiction noemy - Substance Use Disorder noemy - Supporting Someone With an Addiction noemy - Suicidal Feelings: How to Help Yourself noemy - Helping Someone Who is Suicidal noemy - Managing Bipolar Disorder noemy - Supporting Someone With Bipolar Disorder onemy - Substance Use Disorder and Mental Illness noemy - Illegal Drug Use Information, Adult noemy - Supporting Someone With Substance Use Disorder noemy Forms: - Medication Reconciliation Form noemy - Thank You Letter noemy - Antibiotic Education noemy - Prescription Opioid Use noemy Prescriptions: - Seroquel 300 mg Oral tablet - take 1 tablet by ORAL route once daily; 20 tablet; Refills: 0, Product noemy Selection Permitted - Zyprexa 10 mg Oral Tablet - take 1 tablet by ORAL route once daily; 20 tablet; Refills: 0, Product noemy Selection Permitted Signatures: Dispatcher [employer] Zheng Cruz MD MD cha Peltier, Brian, RN RN Yasir Tracey DO DO ms3 Sunita Mendez RN RN ke1 Corrections: (The following items were deleted from the chart) 04:00 03:57 31-year-old male presents via [place] [employer] for hearing voices and ms3 not wanting to live. Patient states demons are telling him people are out to get him. Patient states the voices are telling him that the people he lives with need to be dealt with. Patient states he has had suicidal ideations for 2 years after losing his friend. Patient denies pain at this time. Patient denies inciting factors. Patient states in the past taking his Zyprexa has helped with his symptoms.. ms3 09:35 04:03 ms3 noemy 09:35 04:03 Psych Facility ms3 noemy 09:35 04:03 Higher level of care ms3 noemy 09:35 04:03 Stable ms3 noemy 09:35 04:03 new ms3 noemy 09:35 04:03 are unchanged ms3 noemy 09:35 04:03 Auditory hallucinations ms3 noemy 09:35 04:03 Bipolar disorder, unspecified ms3 noemy 09:35 04:03 Patient's other noncompliance with medication regimen ms3 noemy
[2022-09-18] MEDS ORDERED: LORazepam 2 MG/ML VIAL ONE ×2 (04:06→05:45)
[2022-09-18] MEDS ORDERED: OLANZapine 10 MG TABLET ONE (04:10)
[2022-09-18 04:26] LABS: Absolute Lymphocytes (CBC) 1.1 K/uL (0.7-4.9); Lymphocytes % 13.2 % (15.3-44.8); MCV 88.5 fL (80-100); MPV 9.4 fL (7.6-11.3); RBC Red Blood Cell Count 4.86 M/uL (4.33-5.43)
[2022-09-18 04:28] LABS: Protime INR 1.01
[2022-09-18 04:50] LABS: Urine Blood Negative (Negative); Urine Glucose Negative (Negative); Urine Protein Negative (Negative); Urine Specific Gravity >=1.030 (1.005-1.030); Urine pH 5.5 (5.0-7.0)
[2022-09-18 05:00] LABS: ALT/SGPT 22 U/L (12-78); AST/SGOT 20 U/L (15-37); Albumin 4.6 g/dL (3.4-5.0); Alkaline Phosphatase 96 U/L (45-117); BUN Blood Urea Nitrogen 12 mg/dL (7-18); Bicarbonate 25 mmol/L (21-32); Bilirubin Direct 0.2 mg/dL (0-0.2); Bilirubin Total 0.6 mg/dL (0.2-1.0); Glomerular Filtration Rate 94 ml/min (=/>90); Glucose Level 116 mg/dL (74-106); Potassium 4.2 mmol/L (3.5-5.1); Protein, Total 8.6 g/dL (6.4-8.2); Sodium Level 139 mmol/L (136-145)
[2022-09-18 05:01] LABS: SARS-CoV-2 Antigen Rapid Res Negative (Negative)
[2022-09-18 05:17] LABS: Barbiturates NEGATIVE (NEGATIVE); Benzodiazepines NEGATIVE (NEGATIVE); Cocaine NEGATIVE (NEGATIVE); METHAMPHETAM POSITIVE (NEGATIVE); Methadone NEGATIVE (NEGATIVE); Opiates NEGATIVE (NEGATIVE); Phencyclidine NEGATIVE (NEGATIVE); THC Cannibis POSITIVE (NEGATIVE)
[2022-09-18 10:35] VITALS: O2SAT 100
[2022-09-18 10:41] VITALS: BP 122/83; TEMP 98.2
--- NOTE | 2022-09-19 15:09 | EKG ---
Test Date: 2022-09-18 Test Time: 04:26:08 Desktop Support Consultant: MARCELLE MEASUREMENT RESULTS: Intervals: Rate: 83 VT: 152 QRSD: 94 QT: 368 QTc: 432 [place]: P: 26 VT: 152 QRS: -30 T: 31 INTERPRETIVE STATEMENTS: Normal sinus rhythm Left axis deviation Abnormal ECG Compared to ECG 10/02/2020 00:43:15 Left-axis deviation now present Sinus tachycardia no longer present Left anterior fascicular block no longer present Electronically Signed On 09-19-22 15:08:06 PLATE FORMER by Storm Hrust
== END 2022-09-18 10:12 | disposition home or self-care (01) ==
LOC: ER 03:40
DX: R45.851 Suicidal ideations (principal); F31.9 Bipolar disorder, unspecified; F15.10 Other stimulant abuse, uncomplicated; F17.210 Nicotine dependence, cigarettes, uncomplicated; Z91.14 Patient's other noncompliance with medication regimen; Z20.822 Contact with and (suspected) exposure to COVID-19
CPT/HCPCS: 36415; 80048; 80076; 80307; 80320; 80329; 81003; 85025; 85610; 85730; 87811; 93005; 96374; 99284

== ENCOUNTER 2022-09-18 22:41 | Emergency (ER) | payer SELFPAY ==
--- OUTSIDE RECORDS SUMMARY | 2022-09-18 22:50 | XMS REPORT | Continuity of Care Document ---
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 [facility] SALICYLATE LEVEL 2021-08-10 18:21:00 [facility] ESTIMATED GFR 2021-08-10 18:21:00 [facility] RESPIRATORY PATHOGEN 2021-08-10 18:06:00 [facility] Eloisa [facility] PANEL WITH COVID-19 RT-PCR URINE CULTURE 2021-08-10 18:00:00 [facility] spital URINALYSIS SCREEN AND 2021-08-10 18:00:00 Eloisa michel [facility] MICROSCOPY, WITH REFLEX TO CULTURE URINE DRUGS OF ABUSE 2021-08-10 18:00:00 Eloisa michel [facility] SCREEN CBC/DIFF 2021-08-06 21:32:00 Sawyer Lux BASIC METABOLIC PANEL 2021-08-06 21:32:00 Sawyer Lux [facility] ACETAMINOPHEN 2021-08-06 21:32:00 Sawyer Lux LIVER PROFILE 2021-08-06 21:32:00 Sawyer Lux CBC 2021-08-06 21:32:00 Sawyer Lux 12 LEAD EKG 2021-08-06 21:27:52 Sawyer Lux CBC WITH 2021-08-03 15:56:00 Sherine Serrato DIFFERENTIAL/PLATELET COMPREHENSIVE METABOLIC 2021-08-03 15:56:00 Sherine Serrato [facility] PANEL(14) LIPID PANEL 2021-08-03 15:56:00 Sherine Serrato TSH 2021-08-03 15:56:00 Sherine Serrato HEMOGLOBIN A1C 2021-08-03 15:56:00 Sherine Serrato VALPROIC ACID 2021-08-03 15:56:00 Sherine Serrato (DEPAKOTE)(R),S Appendectomy [facility] Plan of Care Planned Activity Planned Date Details Comments Source Future Scheduled 2022-09-12 HEPATITIS B VACCINES Met [facility] Test 08:10:54 (1 of 3 - 3-dose series) [code = HEPATITIS B VACCINES (1 of 3 - 3-dose series)] Future Scheduled 2022-09-12 COVID-19 VACCINE (#1) [facility] Test 08:10:54 [code = COVID-19 VACCINE (#1)] Future Scheduled 2022-09-12 Pneumococcal Vaccine: [facility] Test 08:10:54 Pediatrics (0 to 5 Years) and At-Risk Patients (6 to 64 Years) (1 - PCV) [code = Pneumococcal Vaccine: Pediatrics (0 to 5 Years) and At-Risk Patients (6 to 64 Years) (1 - PCV)] Future Scheduled 2022-09-12 Hepatitis C screening [facility] Test 08:10:54 (procedure) [code = 383691857] Future Scheduled 2022-09-12 INFLUENZA VACCINE Method [facility] Test 08:10:54 [code = INFLUENZA VACCINE] Future Scheduled 2022-09-12 HEPATITIS B VACCINES Met [facility] Test 08:10:54 (1 of 3 - 3-dose series) [code = HEPATITIS B VACCINES (1 of 3 - 3-dose series)] Future Scheduled 2022-09-12 COVID-19 VACCINE (#1) [facility] Test 08:10:54 [code = COVID-19 VACCINE (#1)] Future Scheduled 2022-09-12 Pneumococcal Vaccine: [facility] Test 08:10:54 Pediatrics (0 to 5 Years) and At-Risk Patients (6 to 64 Years) (1 - PCV) [code = Pneumococcal Vaccine: Pediatrics (0 to 5 Years) and At-Risk Patients (6 to 64 Years) (1 - PCV)] Future Scheduled 2022-09-12 Hepatitis C screening [facility] Test 08:10:54 (procedure) [code = 362831656] Future Scheduled 2022-09-12 INFLUENZA VACCINE Method [facility] Test 08:10:54 [code = INFLUENZA VACCINE] Future Scheduled 2022-09-12 HEPATITIS B VACCINES Met [facility] Test 08:10:54 (1 of 3 - 3-dose series) [code = HEPATITIS B VACCINES (1 of 3 - 3-dose series)] Future Scheduled 2022-09-12 COVID-19 VACCINE (#1) [facility] Test 08:10:54 [code = COVID-19 VACCINE (#1)] Future Scheduled 2022-09-12 Pneumococcal Vaccine: [facility] Test 08:10:54 Pediatrics (0 to 5 Years) and At-Risk Patients (6 to 64 Years) (1 - PCV) [code = Pneumococcal Vaccine: Pediatrics (0 to 5 Years) and At-Risk Patients (6 to 64 Years) (1 - PCV)] Future Scheduled 2022-09-12 Hepatitis C screening [facility] Test 08:10:54 (procedure) [code = 419476990] Future Scheduled 2022-09-12 INFLUENZA VACCINE Method [facility] Test 08:10:54 [code = INFLUENZA VACCINE] Future Scheduled 2022-07-06 HEPATITIS B VACCINES Met [facility] Test 13:39:48 (1 of 3 - 3-dose series) [code = HEPATITIS B VACCINES (1 of 3 - 3-dose series)] Future Scheduled 2022-07-06 COVID-19 VACCINE (#1) [facility] Test 13:39:48 [code = COVID-19 VACCINE (#1)] Future Scheduled 2022-07-06 Pneumococcal Vaccine: [facility] Test 13:39:48 Pediatrics (0 to 5 Years) and At-Risk Patients (6 to 64 Years) (1 - PCV) [code = Pneumococcal Vaccine: Pediatrics (0 to 5 Years) and At-Risk Patients (6 to 64 Years) (1 - PCV)] Future Scheduled 2022-07-06 Hepatitis C screening [facility] Test 13:39:48 (procedure) [code = [id number]] Future Scheduled 2022-07-06 INFLUENZA VACCINE Method [facility] Test 13:39:48 [code = INFLUENZA VACCINE] [...] Date/Time Type Type Clinicians Facility Department ID 2022-09-18 Outpatient [facility] [id number] [place] 09:26:21 [id number] [facility] 2022-08-03 Outpatient [facility] [id number] [place] 10:05:36 [id number] [facility] 2022-07-06 Outpatient [facility] [id number] [place] 16:18:48 [id number] [facility] 2022-07-05 Outpatient [facility] [id number] [place] 09:06:20 [id number] [facility] 2022-05-09 Outpatient [facility] [id number] [place] 15:39:29 [id number] [facility] 2021-11-14 Inpatient EM EDDOC, HCABM FERS [id number] [facility] 20:01:[address] 2021-09-27 Out[facility] [id number] [facility] 17:56:27 CAM 2021-08-19 Inpatient [facility] [id number] [facility] 09:48:00 39 2021-07-26 Inpatient [facility] [id number] [facility] 23:54:00 08 2021-06-05 Inpatient [facility] [id number] [facility] 14:59:00 55 2021-01-17 Inpatient [facility] [id number] [facility] 09:28:00 27 2020-12-06 Inpatient [facility] AMARIS [id number] [facility] 22:48:00 40 [facility] 2020-09-20 Inpatient [facility] [id number] [facility] 09:09:00 30 [facility] 2020-07-05 Inpatient [facility] [id number] [facility] 05:19:00 12 [facility] 2020-06-30 Inpatient [facility] [id number] [facility] 12:44:00 63 [facility] 2020-05-20 Inpatient [facility] [id number] [facility] 19:30:00 13 [facility] 2022-08-03 2022-08-05 Emergency EM Mio, [facility] ERPSY [id number] [facility] 01:31:00 14:06:00 Karley 61 [facility] 2022-07-05 2022-07-18 Inpatient [facility] [id number] 08:43:00 23:00:00 [facility] 2022-07-05 2022-07-18 Outpatient ALMANayla [facility] [id number] [facility] 08:43:00 10:50:00 [place] 2022-07-10 2022-07-10 Emergency Renate Saunders [facility] [id number] Jaya 14:52:00 17:05:00 [facility] 2022-07-10 2022-07-10 Emergency Renate Saunders [facility] [id number] Jaya 14:52:00 17:05:00 [facility] 2022-07-10 2022-07-10 Emergency [facility] [id number] 16:10:24 16:22:12 [facility] 2022-07-02 2022-07-02 Outpatient EMY DUMAS [facility] [id number] [place] 17:44:56 23:59:00 [facility] 2022-05-18 2022-05-19 Emergency Flower Palmerh 1.2.840.1 [id number] [facility]i 23:02:00 11:10:[address] 3.430.2.7 Hospit a .3.799634 l .8 2022-05-18 2022-05-19 Emergency Alfredo Palmer 1.2.840.1 [id number] [facility] 23:02:00 11:10:[address] 3.430.2.7 Hospit a .3.701699 l .8 2022-05-08 2022-05-12 Emergency EM Bryant, [facility] ERPSY [id number] [facility] 09:00:00 23:50:00 Lemuel 17 [facility] 2022-03-07 2022-03-07 Outpatient [facility] [id number] 01:53:00 01:53:00 [facility] 2022-03-03 2022-03-05 Inpatient EM Chris, [facility] TELE [id number] [facility] 10:14:00 11:40:00 Alexsandra 49 [facility] 2022-03-04 2022-03-04 Outpatient Chris, [facility] LABO [id number] [facility] 06:16:00 06:16:00 Alexsandra 10 [facility] 2022-02-22 2022-02-24 Emergency EM Johnnie, [facility] ERPSY [id number] [facility] 09:52:00 09:35:00 Tra 46 [facility] 2021-12-09 2021-12-09 Emergency Svach, 1.2.840.1 [id number] Methodi 15:09:00 18:00:00 Eloisa R [address].1.[address] 3.430.2.7 Hospit a .3.559813 l .8 2021-12-09 2021-12-09 Emergency Svach, 1.2.840.1 [id number] [id number] [facility] 15:09:00 18:00:00 Eloisa R [address].1.[address] 3.430.2.7 Hospit a .3.656111 l .8 2021-11-20 2021-11-20 Hospital Svach, 1.2.840.1 [id number] [facility] 15:37:32 23:59:00 Encounter Eloisa R [address]146.1.[address] 3.430.2.7 Hospit a .3.084932 l .8 2021-11-20 2021-11-20 Hospital Svach, 1.2.840.1 [id number] [facility]i 15:37:32 23:59:00 Encounter Eloisa R [address]68.1.[address] 3.430.2.7 Hospit a .3.880661 l .8 2021-11-20 2021-11-20 Emergency Svach, 1.2.840.1 [id number] [id number] [facility]i 15:30:00 16:05:00 Eloisa R [address].1.[address] 3.430.2.7 Hospit a .3.004547 l .8 2021-11-20 2021-11-20 Emergency Svach, 1.2.840.1 [id number] 2099 [id number] [facility]i 15:30:00 16:05:00 Eloisa R [address].1.[address] 3.430.2.7 Hospit a .3.306060 l .8 2021-11-20 2021-11-20 Travel 1.2.840.1 1.2.767.535 7463 [id number] [facility]i 00:00:00 00:00:[address] 3.430.2.7 0.2.7.3.698 Ho spita .3.552917 084.8 l .8 2021-11-20 2021-11-20 Travel 1.2.840.1 1.2.560.010 1421 [id number] Methodi 00:00:00 00:00:[address] 3.430.2.7 0.2.7.3.698 Ho spita .3.599164 084.8 l .8 2021-11-14 2021-11-14 Emergency Leslie, 1.2.840.1 [id number] [id number] Methodi 21:35:00 22:12:[address] 3.430.2.7 Hospit a .3.315506 l .8 2021-11-14 2021-11-14 Emergency Leslie, 1.2.840.1 [id number] 2099 [id number] Methodi 21:35:00 22:12:[address] 3.430.2.7 Hospit a .3.909810 l .8 2021-11-14 2021-11-14 Travel 1.2.840.1 1.2.247.361 7712 [id number] Methodi 00:00:00 00:00:[address] 3.430.2.7 0.2.7.3.698 Ho spita .3.773040 084.8 l .8 2021-11-14 2021-11-14 Travel 1.2.840.1 1.2.209.381 2451 [id number] Methodi 00:00:00 00:00:[address] 3.430.2.7 0.2.7.3.698 Ho spita .3.112301 084.8 l .8 2021-11-02 2021-11-03 Emergency EM CHARANJIT Bro [id number] [facility] 23:58:00 10:54:00 Eusebio 53 [facility] 2021-09-30 2021-09-30 Emergency EM Amy [facility] GLORY [id number] [facility] 18:08:00 19:52:00 Araceli 91 [facility] 2021-09-27 2021-09-28 Inpatient [facility] [id number] [place] 01:00:00 23:00:00 [facility] 2021-09-24 2021-09-24 Outpatient JASVIR, [facility] [id number] Jaya 19:23:17 23:59:00 [facility] 2021-08-19 2021-08-20 Inpatient EM CHARANJIT Kat [id number] [facility] 21:24:00 15:23:00 Dee 60 [facility] 2021-08-20 2021-08-20 Outpatient KAEL Kat [id number] [facility] 08:44:00 08:44:00 [facility] 07 [facility] 2021-08-19 2021-08-19 Emergency [facility] [id number] [facility] 09:48:00 09:48:00 39 2021-08-18 2021-08-19 Emergency Nazario [facility] [id number] [place] 20:21:00 05:33:00 [facility] 2021-08-19 2021-08-19 Emergency NAZARIO [facility] [id number] [place] 00:32:29 00:32:29 [facility] 2021-08-10 2021-08-12 Emergency Latrice 1.2.840.1 [id number] Methodi 12:40:00 11:57:[address]1.[address] 3.430.2.7 Hospit a .3.589631 l .8 2021-08-12 2021-08-12 Travel 1.2.840.1 1.2.541.687 0045 [id number] [facility]i 00:00:00 00:00:[address] 3.430.2.7 0.2.7.3.698 Ho spita .3.932242 084.8 l .8 2021-08-06 2021-08-07 [facility] [id number] [address] [place] [address] 22:02:00 06:08:00 Caterina salazar 2021-07-26 2021-07-26 Emergency [facility] [id number] [facility] 23:54:00 23:54:00 08 2021-06-05 2021-06-05 Emergency [facility] [id number] [facility] 14:59:00 14:59:00 55 2021-05-30 2021-05-30 Emergency [facility] [id number] Memoria 03:14:32 07:02:[address] [facility] 2021-05-30 2021-05-30 Emergency [facility] [id number] Memoria 03:14:32 07:02:[address] [facility] 2021-05-29 2021-05-30 Outpatient Ruben, MHSE MHSE [id number] 22:14:32 02:02:00 Bryce 00 2021-05-29 2021-05-30 Emergency E RUBEN, MHSE MHSE [id number] [facility] 22:14:00 [facility]02[facility] 2021-01-17 2021-01-17 [facility] [id number] [facility] 09:28:00 09:28:00 27 2020-12-06 2020-12-08 Emergency EM Montes, HCABM ERPSY [id number] [facility] 22:48:00 14:25:[address] 2020-12-07 2020-12-07 Outpatient Montes, HCACL LABO [id number] [facility] 14:45:00 14:45:[address] 2020-12-07 2020-12-07 Outpatient Montes, [facility] LABO [id number] [facility] 14:45:00 14:45:[address] 2020-07-06 2020-07-09 Inpatient E REINA, MHSE MED [id number] MH 22:00:00 17:09:[address] [facility] 2020-07-05 2020-07-06 Emergency E RUBEN, MHSE MHSE [id number] MH 21:28:00 01:32:00 [facility] 2019-11-13 2019-11-15 Inpatient HCAKW AMARIS [id number] [facility] 17:57:00 02:47:[address] [place] [address] 2018-06-20 2018-06-20 Emergency [facility] MED [id number] 08:56:13 08:56:13 Health 2017-05-19 2017-05-19 Outpatient [facility] [id number] [place] 00:00:00 00:00:00 Health Results Test Description Test Time Test Comments Results Result Comments Source ECG 12 lead 2022-09-15 05:17:13 Test Item Value Reference Range Interpretation Comme nts Ventricular rate (test code = 253) Atrial rate (test code = 255) MD interval (test code = 266) QRSD interval [...] of 10-AUG-2021 14:00,-Questionable change in QRS axis- [facility] 12 [id number] 05:17:13 Test Item Value Reference Range Interpretation Comments Ventricular rate (test code = 253) Atrial rate (test code = 255) MD interval (test code = 266) QRSD interval (test code = 260) QT interval (test code = 264) QTC interval (test code = 265) P axis 1 (test code = 267) QRS axis 1 (test code = 268) T wave axis (test code = 270) EKG impression (test Normal sinus rhythm code = 273) with sinus arrhythmia-Right superior axis deviation-Cannot rule out Anterior infarct , age undetermined-Abnormal ECG-In automated comparison with ECG of 10-AUG-2021 14:00,-Questionable change in QRS axis- [place] [address] [id number] 05:17:13 Test Item Value Reference Range Interpretation Comments Ventricular rate (test code = 253) Atrial rate (test code = 255) MD interval (test code = 266) QRSD interval (test code = 260) QT interval (test code = 264) QTC interval (test code = 265) P axis 1 (test code = 267) QRS axis 1 (test code = 268) T wave axis (test code = 270) EKG impression (test Normal sinus rhythm code = 273) with sinus arrhythmia-Right superior axis deviation-Cannot rule out Anterior infarct , age undetermined-Abnormal ECG-In automated comparison with ECG of 10-AUG-2021 14:00,-Questionable [facility] in [facility] [id number] 04:54:00 Test Item Value Reference Range Interpretation Comments UA COLOR (test code = YELLOW YELLOW COLU) UA APPEARANCE (test CLEAR CLEAR IS THE S AMPLE code = APPU) FROM ER OR L&D? Y IF THE ANSWER I S NO,PLEASE DOCUMENT TWO RN SIGNATURES HERE - Edwar [email or web address].GP 08/03/22 3327 UA BILIRUBIN DIPSTICK NEGATIVE mg/dL NEGATIVE (test [...] Urine Source? Clean CatchDRUGS OF ABUSE SCREEN [id number] 04:54:00 Test Item Value Reference Range Interpretation Comments URN COCAINE (test code = NEGATIVE See_Comment [A utomated message] COCAURN) The system [employer] generated this result transmitted ref erence range: [...] See_Comment [A utomated message] OPIATURN) The system [employer] generated this result transmitted ref erence range: [...] [A utomated message] = METHAURN) The system [employer] generated this result transmitted ref erence range: <300 ng/ mL. The reference r sidra was not used to interpret this result as normal/abnor mal. Urine Source? Clean CatchCOVID 19 Asymptomatic IH [id number] 03:48:00 Test Item Value Reference Range Interpretation Comments COVID 19 Asymptomatic IH AG (test NEGATIVE NEGATIVE code = COVNONPUIAG) BASIC METABOLIC [id number] 03:26:00 Test Item Value Reference Range Interpretation [...] >3 months. [Automated mess age] The system [employer] generated this result transmitted ref erence range: >=60. Th e reference range was not used to int erpret this result as normal/abnormal . CREATININE (test 1.00 mg/dL 0.7-1.3 N code = CREAT) BUN/CREATININE RATIO 19.0 10-20 N (test code = BUN/CREA) CALCIUM (test code = 9.3 mg/dL 8.5-10.1 N CA) HEPATIC FUNCTION [id number] 03:26:00 Test Item Value Reference Range Interpretation [...] range due ALKP) to change in reagent. [id number] 03:26:00 Test Item Value Reference Range Interpretation Comments ACETAMINOPHEN (test code < 0.2 mg/dL 1.0-3.0 L CAU TION: TO = ACET) CONVERT FROM MG /DL TO MCG/ML MULTI PLY RESULT [id number] 03:26:00 Test Item Value Reference Range Interpretation Comments SALICYLATE (test code = BIGG) < 3.0 mg/dL 2.8-20.0 N [id number] 03:26:00 Test Item Value Reference Range Interpretation Comments ALCOHOL (test code = 4 mg/dL 0.0-3.0 H ------- INTERPRET ALC) JOSEFINA DATA NOTE: POSITIVE SCREEN ING RESULTS SHOULD BE CONSI DERED PRESUMPTIVE.WHE N COLLECTED FOR MEDICAL PUR POSES ONLY. SPECIMEN WILL N OTBE COLLECTED BY AIN OF CUSTODY.IF A CO NFIRMATION OF POSITIVE RES ULTS IS DESIRED, ACONFI RMATION TEST MUST BE RE QUESTED BY THE PHYSICIAN A T ANADDITIONAL CH ARGE TO THE PATIENT. CBC W/O [id number] 02:48:00 Test Item Value Reference Range Interpretation [...] 11.7 fL 6.7-11.0 H = MPV) Urine [id number] 14:51:00 Test Item Value Reference Range Interpretation Comments Urine culture Mixed mechelle Specimen isolate (test <=10-3 col/cc InformationSp ecimen code = 50214-7) Source: [facility] Site: [facility] [id number] 14:51:00 Test Item Value Reference Range Interpretation Comments Urine culture Mixed mechelle Specimen isolate (test <=10-3 col/cc InformationSp ecimen code = 51802-0) Source: [facility] Site: [facility] [id number] 14:51:00 Test Item Value Reference Range Interpretation Comments Urine culture Mixed mechelle Specimen isolate (test <=10-3 col/cc InformationSp ecimen code = 14917-1) Source: [facility] [id number] 14:51:00 Test Item Value Reference Range Interpretation Comments Urine culture Mixed mechelle Specimen isolate (test <=10-3 col/cc InformationSp ecimen code = 27941-6) Source: [facility] RNA [Presence] in Respiratory specimen by NIKKI with probe [id number] 00:38:47 Test Item Value Reference Range Interpretation Comments SARS-CoV-2 (COVID-19) RNA Not detected [Presence] in Respiratory specimen by NIKKI with probe detection (test code = 96418-0) Whether patient is employed in a Unknown healthcare setting (test code = 39952-1) Whether the patient has symptoms Unknown related to condition of interest (test code = 73504-6) Whether the patient was Unknown hospitalized for condition of interest (test code = 36565-1) Whether the patient was admitted Unknown to intensive care unit (ICU) for condition of interest (test code = 01838-1) Whether patient resides in a Unknown congregate care setting (test code = 52100-5) status (test code = Unknown 71682-9) Date and time of symptom onset Unknown (test code = 63218-8) [facility] [id number] 07:40:00 Test Item Value Reference Range Interpretation Comments UA COLOR (test code = YELLOW YELLOW COLU) UA APPEARANCE (test CLEAR CLEAR IS THE S AMPLE code = APPU) FROM ER OR L&D? Y IF THE ANSWER I S NO,PLEASE DOCUMENT TWO RN SIGNATURES HERE - by YASMINE 05/09/22 9355 UA GLUCOSE DIPSTICK NEGATIVE mg/dL NEGATIVE (test [...] Urine Source? Clean CatchDRUGS OF ABUSE SCREEN [id number] 07:40:00 Test Item Value Reference Range Interpretation Comments URN COCAINE (test code = POSITIVE See_Comment [A utomated message] COCAURN) The system [employer] generated this result transmitted ref erence range: [...] See_Comment [A utomated message] OPIATURN) The system [employer] generated this result transmitted ref erence range: [...] [A utomated message] = METHAURN) The system [employer] generated this result transmitted ref erence range: <300 ng/ mL. The reference r sidra was not used to interpret this result as normal/abnor mal. Urine Source? Clean CatchBASIC METABOLIC [id number] 11:10:00 Test Item Value Reference Range Interpretation [...] >3 months. [Automated mess age] The system [employer] generated this result transmitted ref erence range: >=60. Th e reference range was not used to int erpret this result as normal/abnormal . CREATININE (test 1.00 mg/dL 0.7-1.3 N code = CREAT) BUN/CREATININE RATIO 16.8 10-20 N (test code = BUN/CREA) CALCIUM (test code = 9.1 mg/dL 8.5-10.1 N CA) HEPATIC FUNCTION [id number] 11:10:00 Test Item Value Reference Range Interpretation [...] code = 674 IUnit/L 26-208 H CK) [id number] 11:10:00 Test Item Value Reference Range Interpretation Comments ACETAMINOPHEN (test code < 0.2 mg/dL 1.0-3.0 L CAU TION: TO = ACET) CONVERT FROM MG /DL TO MCG/ML MULTI PLY RESULT BY10 [id number] 11:10:00 Test Item Value Reference Range Interpretation Comments SALICYLATE (test code = BIGG) < 3.0 mg/dL 2.8-20.0 N [id number] 11:10:00 Test Item Value Reference Range Interpretation [...] [facility] COVID [facility] INHOUSE [id number] 10:50:00 Test Item Value Reference Range Interpretation Comments COVID 19 INHOUSE AG (test code = NEGATIVE NEGATIVE [id number]) CBC W/O [id number] 10:40:00 Test Item Value Reference Range Interpretation [...] fL 6.7-11.0 H = MPV) COMPREHENSIVE METABOLIC [id number] 02:29:00 Test Item Value Reference Range Interpretation [...] >3 months. [Automated mess age] The system [employer] generated this result transmit mikey reference range [...] range due ALKP) to change in reagent. 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 [Automated mess age] The system [facility] [employer] generated this result transmitted ref erence range: >=60. Th e reference range was not used to int erpret this result as normal/abnormal . CREATININE (test 0.80 mg/dL 0.7-1.3 N code = CREAT) BUN/CREATININE RATIO 10.7 10-20 N (test code = BUN/CREA) CALCIUM (test code = 9.3 mg/dL 8.5-10.1 N CA) [id number] 03:44:00 Test Item Value Reference Range Interpretation Comments MAGNESIUM (test code = MAG) 2.0 mg/dL 1.8-2.4 N CBC W/AUTO [id number] 03:32:00 Test Item Value Reference Range Interpretation [...] REQUIRED (test code NO = MDIFF) - US ABDOMEN [id number] 20:54:00 [facility] ([facility])Name: VICTOR M SCHULER : 1990 Sex: M Name: VICTOR M SCHULER [facility] : 1990 Age/S: 31 / M [address] [facility] Unit #: [id number] Loc: [place] [address] Phys: Alexsandra Perez Acct: [id number] Dis Date: Status: ADM IN PHONE #: [phone] Exam Date: 03/03/20222038 FAX #: [phone] Reason: ABD PAIN EXAMS: CPT CODE: [id number] US ABDOMEN LTD 64070 REASON FOR EXAM: ABD PAIN EXAM ORDER [...] Signed Report (CONTINUED) Name: VICTOR M SCHULER [facility] : 1990 Age/S:31 / M [address] [facility] Unit #: [id number] Loc: [place] [address] Phys: Alexsandra Perez MSN Acct: [id number] Dis Date: Status: ADM IN PHONE #: [phone] Exam Date: 03/03/20222038 FAX #: Reason: ABD PAIN EXAMS: CPT CODE: [id number] US ABDOMEN LTD 76482 <Continued> hydronephrosis: none Ascites/pleural effusions: None IMPRESSION: Sonographically unremarkable abdomen. Location: [facility] at 2053 Reported and signed by: Jim Gomez M.D. CC: Alexsandra Perez Technologist: Khadra Gamez Trnscb Date/Time: 03/03/2022 (2053) [email or web address] Orig Print D/T: S: 03/03/2022 (2058) Probe: PAGE 2 Signed ReportLACTIC [id number] 11:30:00 Test Item Value Reference Range Interpretation Comments LACTIC ACID (test 2.0 mmol/L 0.4-1.9 H Results ca lled to code = LACT) [id number] by 11OJ L8605 03/03/22 1130Cr itical results verifie d and read back by Nu rse? YES FOR ALL ICU PATIENT EXCLUDING HOLD PLEASE CALL [phone] DRUGS OF ABUSE SCREEN [id number] 09:50:00 Test Item Value Reference Range Interpretation Comments UA PH DIPSTICK (test 5.5 5.0-8.0 code = TAMEKA) URN COCAINE (test code = POSITIVE See_Comment [A utomated message] COCAURN) The system [employer] generated this result transmitted ref erence range: [...] See_Comment [A utomated message] OPIATURN) The system [employer] generated this result transmitted ref erence range: <300 ng/ mL. The reference r sidra was not used to interpret this result as normal/abnor mal. URN PHENCYCLIDINE (PCP) NEGATIVE See_Comment [Au tomated message] (test code = PHENCURN) The s [employer] which generated this result transmitted ref erence range: <25 ng/m L. The reference range was not used to int erpret this result as normal/abnormal . URN METHADONE (test code NEGATIVE See_Comment [A utomated message] = METHAURN) The system [employer] generated this result transmitted ref erence range: <300 ng/ mL. The reference r sidra was not used to interpret this result as normal/abnor mal. URINALYSIS [id number] 09:06:00 Test Item Value Reference Range Interpretation Comments UA COLOR (test code = Light-Yellow YELLOW COLU) UA APPEARANCE (test CLEAR CLEAR IS THE S AMPLE code = APPU) FROM ER OR L&D? Y IF THE ANSWER I S NO,PLEASE DOCUMENT TWO RN SIGNATURES HERE - by [id number] 03/03/22905 UA GLUCOSE DIPSTICK NEGATIVE mg/dL NEGATIVE (test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
--- NOTE | 2022-09-19 00:05 | ER ---
Nurse's Notes [facility] Name: Arun Schuler Age: 31 yrs Sex: Male : 1990 Arrival Date: 09/18/2022 Time: 22:52 Bed DIS3 Private MD: Diagnosis: Anxiety disorder, unspecified Assessment: 09/18 23:59 General: Called pt to triage. No response. Pt noted to be walking around and smoking kb3 outside the ER entrance. RN approached pt and let him know that it was his turn for triage. Pt reported that he had already seen the doctor who wanted to give him Seroquel. Pt reported that he has bipolar schizophrenia and does not want to take Seroquel and he appreciates up trying to help him but he is does not want to come inside ER for further evaluation. Pt is calm and cooperative. Reassured pt that we are here to help him and if he would like to come back another day for further evaluation, we would be here to help. Left pt standing outside ER smoking a cigarette. ED Course: 22:52 Patient arrived in ED. bp1 22:52 Yasir Beck DO is Attending Physician. ms3 09/19 00:22 Nando Dacosta MD is Referral Physician. ms3 Administered Medications: 00:21 Not Given (Patient Refused): ZyPREXA (OLANZapine) 10 mg PO once bb Outcome: 00:04 Patient left the ED. kb3 00:22 Discharge ordered by . ms3 00:23 Patient left the ED. bb Signatures: Alvina Esquivel RN RN bb Sims, Marcus, DO DO ms3 Thu Santana Kelly, RN RN kb3
--- NOTE | 2022-09-19 00:23 | EDPHYS ---
Physician Documentation [facility] Name: Arun Schuler Age: 31 yrs Sex: Male : 1990 Arrival Date: 09/18/2022 Time: 22:52 Bed DIS3 Private MD: ED Physician Yasir Beck HPI: 09/18 23:55 This 31 yrs old Male presents to ER via Unassigned with complaints of Anxiety. ms3 23:55 The patient presents to the emergency department with anxiety. ms3 09/19 00:45 Onset: The symptoms/episode began/occurred today. Past psychiatric history: Prior ms3 diagnosis: bipolar disorder, schizophrenia, Psychiatric medications include: Zyprexa, Associated signs and symptoms: Pertinent positives; paranoia, Pertinent negatives: hallucinations, homicidal ideation. Severity of symptoms: At their worst the symptoms were moderate in the emergency department the symptoms are unchanged Pain is currently a 0 / 10. ROS: 00:45 Constitutional: Negative for fever, and chills. Neck: Negative for injury, pain, and ms3 swelling, Cardiovascular: Negative for chest pain, and palpitations. Respiratory: Negative for shortness of breath, cough, wheezing, and pleuritic chest pain, Abdomen/GI: Negative for abdominal pain, nausea, vomiting, diarrhea, and constipation, MS/Extremity: Negative for injury and deformity, Skin: Negative for injury, rash, and discoloration. 00:45 Psych: Positive for anxiety. 00:45 All other systems are negative. Exam: 00:45 Constitutional: This is a well developed, well nourished patient who is awake, alert, ms3 and in no acute distress. Head/Face: Normocephalic, atraumatic. Neck: Trachea midline, no cervical lymphadenopathy. Supple, full range of motion without nuchal rigidity, or vertebral point tenderness. No Meningismus. Chest/axilla: Normal chest wall appearance and motion. Nontender with no deformity. Cardiovascular: Regular rate and rhythm with a normal S1 and S2. No gallops, murmurs, or rubs. Normal PMI, no JVD. No pulse deficits. Respiratory: Lungs have equal breath sounds bilaterally, clear to auscultation and percussion. No rales, rhonchi or wheezes noted. No increased work of breathing, no retractions or nasal flaring. Abdomen/GI: Soft, non-tender, with normal bowel sounds. No distension or tympany. No guarding or rebound. No evidence of tenderness throughout. Skin: Warm, dry with normal turgor. Normal color with no rashes, no lesions, and no evidence of cellulitis. MS/ Extremity: Pulses equal, no cyanosis. Neurovascular intact. Full, normal range of motion. 00:45 Psych: Behavior/mood is pleasant, cooperative, anxious, Affect is calm, Oriented to person, place, time, Patient has no thoughts/intents to harm self or others. MDM: 09/18 23:07 Patient medically screened. ms3 09/19 00:45 Data reviewed:. ED course: Patient left from the emergency department prior to nursing ms3 triage. Patient is free to return to the emergency department anytime to continue care. Patient denied homicidal ideation or intent, suicidal ideation or intent, or hallucinations.. Administered Medications: 00:21 Not Given (Patient Refused): ZyPREXA (OLANZapine) 10 mg PO once bb Disposition Summary: 09/19/22 00:22 Discharge Ordered Location: Home ms3 Condition: Stable(09/19/22 00:22) ms3 Diagnosis - Anxiety disorder, unspecified ms3 Followup: ms3 - With: Nando Dacosta MD - When: 1 - 2 days - Reason: Recheck today's complaints Discharge Instructions: - Discharge Summary Sheet ms3 - Managing Anxiety, Adult ms3 Forms: - Medication Reconciliation Form ms3 - Thank You Letter ms3 - Antibiotic Education ms3 - Prescription Opioid Use ms3 Signatures: Yasir Beck DO DO ms3 Michelle Franklin RN RN kb3 Alvina Esquivel RN bb Corrections: (The following items were deleted from the chart) 00:21 00:04 after being seen by provider kb3 ms3 00:21 00:04 chronic kb3 ms3 00:21 00:04 are unchanged kb3 ms3 00:21 00:04 other kb3 ms3 00:21 00:04 Stable kb3 ms3 00:47 09/18 23:55 The patient presents to the emergency department with anxiety, ms3 ms3
== END 2022-09-19 00:23 | disposition home or self-care (01) ==
LOC: ER 22:41
DX: F41.9 Anxiety disorder, unspecified (principal)